=== PATIENT | female | born 1975 | race Caucasian/White ===

== ENCOUNTER → 2017-09-13 10:22 | Outpatient (CLI) | payer OTHER, SELFPAY ==
--- NOTE | 2017-09-13 10:27 | RAD_ITS ---
STUDY: X-RAY - RIGHT FOOT CLINICAL: Female, 41 years old. Brain TECHNIQUE: 3 view(s) of the foot. COMPARISON: None. FINDINGS: There is avulsion at the anterolateral aspect of the calcaneus at the origin of the extensor digitorum brevis musculature. 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 Normal visualized subtalar, talonavicular, calcaneocuboid, tarsal and tarsometatarsal articulations. Normal metatarsi. Normal metatarsophalangeal joint of the great toe. Normal tibial and fibular sesamoid bones. Normal interphalangeal joint of the great toe. Normal phalanges of the great toe. Normal second through fifth metatarsophalangeal joints. Normal interphalangeal joints and phalanges of the lesser toes. The soft tissue structures are unremarkable. RAD/Foot min 3 Views IMPRESSION: Avulsion at the anterolateral aspect of the calcaneus Accessory navicular Electronically Signed: Kwadwo Blake MD at 10:16 EDT Tel , Service support ,
--- NOTE | 2017-09-13 10:28 | RAD_ITS ---
STUDY: X-RAY - RIGHT ANKLE REASON FOR EXAM: Female, 41 years old. Brain TECHNIQUE: 3 view(s) of the ankle. COMPARISON: None. FINDINGS: Normal visualized distal tibia and fibula. Normal medial and lateral malleoli. Normal tibiotalar articulation and ankle mortise. Calcaneal spurring. The visualized subtalar, talonavicular, calcaneocuboid and tarsal articulations are normal. The soft tissue structures are unremarkable. RAD/Ankle min 3 Views IMPRESSION: No fracture Electronically Signed: Kwadwo Blake MD at 10:15 EDT Tel , Service support ,
== END ==
PROVIDERS: Family Provider Internal Medicine; PCP Internal Medicine; Visit Provider Physician Assistant
DX: S93.491A Sprain of other ligament of right ankle, initial encounter (principal); X58.XXXA Exposure to other specified factors, initial encounter
CPT/HCPCS: 73610; 73630

== ENCOUNTER 2017-10-09 10:30 | Outpatient (RCR) | payer OTHER, SELFPAY ==
--- NOTE | 2017-09-13 10:32 | HP.PTEVAL ---
Patient's Visit Information VINCENT MCGEE is a 41 year old F referred to Physical Therapy by Indra DOLL with a diagnosis of Ankle Sprain. Date of Evaluation: 09/13/17 Physical Therapist: Mindi Mcpherson - Visit Plan Frequency: 2-3x /Week Duration: 4 Weeks Plan: Patient to see MD on Saturday- if wbat then progress 2-3x a week for 4 weeks - Subjective Subjective: Tripped and fell off a step in the garage and the right ankle rolled to the inside. X-rayed 2 weeks ago and will have another one today. NWB for 2 weeks today and partial WB as of today. She did not want to use the crutches because it was hurting her other foot. worst: 01/31 Agg: being on it, movement. Best: 08/31 Eases: rest, ice, elevation. Sleep: wakes her up- moves all over. Pain is located the medial side of the ankle, top of the foot and down the into the heel. Burning, achy and sharp when she moves it wrong. No N/T in the foot. 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 PMHx: neck surgery, , HTn meds: cartisone - Objective Posture: FH, RS. Gait: antalgic- patient was to be NWB but ambulated into the clinic FWB with decreased stance on the right LE. Girth: Malleolus: 28 cm Figure 8: 55cm, Mets: 22.5cm. ROM: DF: neutral, PF: 30 degrees, Inv: 15 degrees, Ever: 10 degrees with bret. Observation: mild brusing. Palpation: tender along medial and lateral malleolus and along foot. x - Goals Goal 1:: Patient will be I with HEP and progression Goal Time Frame: 4-6 Weeks Goal 2:: Patient will demo full AROM of the ankle Goal Time Frame: 4-6 Weeks Goal 3:: Patient will ambulate >300 feet with a normalized gait pattern and LRD as per allowed WB by md Goal Time Frame: 4-6 Weeks Goal 4:: patient will SLS for 15 sec without LOB Goal Time Frame: 4-6 Weeks - Rehabilitation Potential Physical Therapy Diagnosis: Patient presents with hypomobility- she has decreased ROM, strength and muscular endurance s/p ankle sprain decreasing ability to perform ADL's. Rehabilitation Potential: Fair - Anticipated Interventions Patient/Client Instruction: Educate patient on: Benefits of Fitness Program For the Purpose of:: To improve performance and independence with ADL's Therapeutic Exercise to Include: Strength training, Endurance training, Balance training, Agility training, Body mechanics, Postural training, Flexibilty training, Gait and locomotor training, Neuromotor development, Passive ROM, Active ROM For the Purpose of:: To improve muscle performance and motor function TENS: Yes Cryotherapy (ice pack, ice massage): Yes Thermo therapy (hot pack): Yes Ultrasound (thermal/non thermal): Yes For the Purpose of:: To decrease pain Thank you for the opportunity to evaluate your patient. For Medicare and Medicare HMO plans, please review the plan of care and approve it. It will need to be FAXED BACK to us at [phone] for Medicare purposes. Please let me know if there are questions or concerns regarding this plan of care. Physician Signature: Date:
--- NOTE | 2017-11-11 14:13 | HP.PT.NRP ---
HP - Discharge Summary (1) - Patient Information VINCENT MGCEE was seen in my office for initial evaluation on 09/13/17. The following Plan of Care was established for this patient: Initial Frequency: 2-3x /Week Initial Duration: 4 Weeks - Anticipated Interventions Patient/Client Instruction: Educate patient on: Benefits of Fitness Program For the Purpose of:: To improve performance and independence with ADL's Therapeutic Exercise to Include: Strength training, Endurance training, Balance training, Agility training, Body mechanics, Postural training, Flexibilty training, Gait and locomotor training, Neuromotor development, Passive ROM, Active ROM For the Purpose of:: To improve muscle performance and motor function TENS: Yes Cryotherapy (ice pack, ice massage): Yes Thermo therapy (hot pack): Yes Ultrasound (thermal/non thermal): Yes For the Purpose of:: To decrease pain This patient was last seen in our office . Pertinent comments regarding their Physical therapy will appear below: Patient has not returned for 30 days and is appropriate for discharge. Return to MD for further evaluation as needed. At this point I will be discontinuing this patient from physical therapy. I would be happy to see this patient again in the future if found appropriate by the physician. Thank you! Mindi Mcpherson
== END 2017-10-09 19:00 | disposition home or self-care (01) ==
LOC: PT 10:30
PROVIDERS: Family Provider Internal Medicine; PCP Internal Medicine; Visit Provider Physician Assistant
DX: S93.491D Sprain of other ligament of right ankle, subsequent encounter (principal)
CPT/HCPCS: 97014; 97110; 97161; G0283

== ENCOUNTER → 2018-04-16 09:20 | Outpatient (CLI) | payer OTHER, SELFPAY ==
--- NOTE | 2018-04-16 09:22 | RAD_ITS ---
STUDY: X-RAY - RIGHT KNEE REASON FOR EXAM: Female, 42 years old. Pain following a recent fall. TECHNIQUE: 3 view(s) of the knee. COMPARISON: None. FINDINGS: Normal visualized distal femur. Normal visualized proximal tibia and fibula. Normal proximal tibiofibular articulation. Normal medial femorotibial compartment. Normal lateral femorotibial compartment. Normal patellofemoral articulation. There is a 2.2 cm x 1.5 cm small sesamoid bone overlying the posterior lateral femoral condyle. This is suggestive of flabella. The sesamoid bone is usually embedded within the lateral head of the gastrocnemius muscle. RAD/Knee 3 Views IMPRESSION: No acute abnormality is seen. Flabella is seen overlying the posterolateral aspect of the distal lateral femoral condyle. Electronically Signed: Andreas Spicer MD at 10:04 EDT Tel [phone], Service support ,
== END ==
LOC: LAB 09:22 → MTRAD 09:22
PROVIDERS: Family Provider Internal Medicine; PCP Internal Medicine; Referring Provider Physician Assistant; Visit Provider Physician Assistant
DX: M25.561 Pain in right knee (principal)
CPT/HCPCS: 73562

== ENCOUNTER → 2018-04-22 16:13 | Outpatient (CLI) | payer OTHER, SELFPAY ==
--- NOTE | 2018-04-22 16:18 | MRI_ITS ---
STUDY: MRI RIGHT KNEE REASON FOR EXAM: Right knee pain status post injury almost 2 weeks ago. TECHNIQUE: Standardized fat and water weighted pulse sequences were obtained in all 3 orthogonal planes. COMPARISON: Radiographs 04/16/2018. FINDINGS: There a small tear of the root ligament of the posterior horn of the medial meniscus (T2 coronal image 12). There is mild peripheral subluxation of the medial meniscus. Normal hyaline cartilage of the medial femorotibial compartment. Normal medial femoral condyle and tibial plateau. Normal medial collateral ligamentous complex (MCL). Normal distal semimembranosus, gracilis and semitendinosus tendons. Normal lateral meniscus. Normal hyaline cartilage of the lateral femorotibial compartment. Normal lateral femoral condyle and tibial plateau. Normal proximal tibiofibular articulation. Normal lateral collateral (fibular) ligament. Normal popliteus tendon. Normal biceps femoris tendon. Normal anterior cruciate ligament (ACL). Normal posterior cruciate ligament (PCL). Normal congruent patellofemoral articulation. Normal hyaline cartilage of the patellofemoral compartment. Normal medial and lateral patellar retinaculum. Normal visualized quadriceps tendon. Normal patellar tendon. Normal Hoffa's fat pad. There is a small joint effusion. There is a small popliteal cyst with extravasation of fluid (T2 sagittal images 6-9). There is cystic change in the proximal tibia extending anteriorly from the posterior cruciate ligament insertion site (T2 sagittal images 12-15). MRI/Lower Ext Joint Only (Routine) IMPRESSION: Small tear of the root ligament of the posterior horn of the medial meniscus. Small joint effusion. Small popliteal cyst with extravasation of fluid. Electronically Signed: Kendell La MD at 10:04 EDT Tel , Service support ,
== END ==
PROVIDERS: Family Provider Internal Medicine; PCP Internal Medicine; Referring Provider Physician Assistant; Visit Provider Physician Assistant
DX: M25.561 Pain in right knee (principal)
CPT/HCPCS: 73721

== ENCOUNTER 2018-06-02 07:56 | Day surgery (SDC) | payer OTHER, SELFPAY ==
[2018-04-16 09:22] VITALS: BMI 38.3
[2018-06-02 08:23] VITALS: BP 150/90; PULSE 71; RESP 16; TEMP 36.9; O2SAT 98; BMI 38.5
[2018-06-02 08:23] LABS: Internal QC Validated? YES +Cl - CLEAR BKGD
[2018-06-02 08:26] LABS: Pregnancy, Urine Negative Negative
[2018-06-02] MEDS: Bupiv/Epi 0.5% Mpf 30 ML Vial (09:52)
--- NOTE | 2018-06-02 09:59 | PCM.IMDPSTOP ---
Immediate Post-Op Note Date of Procedure: 06/02/18 Primary Surgeon/Physician: Robin Cheema aircraft maintenance manager: none Pre-Operative Diagnosis: Internal derangement right knee Post-Operative Diagnosis: Grade 2 chondromalacia MFC, Anterior horn lateral meniscus tear Surgery/Procedure Performed:: D & O Arthroscopy Description of Surgical Findings:: see op note Estimated Blood Loss: minimal Specimen's removed: none Type of Anesthesia:: General ASA Class: ASA3 Severe Disease - Admit VTE Documentation VTE Present on Admission: No VTE Mechan Device Prophylaxis: SCD's VTE Pharm Prophylaxis ordered?: No Reason prophylaxis not ordered:: Treatment Not Indicated
--- NOTE | 2018-06-02 10:02 | OP.PN_ITS ---
Immediate Post-Op Note Date of Procedure: 06/02/18 Primary Surgeon/Physician: Robin Cheema plastic shaper: none Pre-Operative Diagnosis: Internal derangement right knee Post-Operative Diagnosis: Grade 2 chondromalacia MFC, Anterior horn lateral meniscus tear Surgery/Procedure Performed:: D & O Arthroscopy Description of Surgical Findings:: see op note Estimated Blood Loss: minimal Specimen's removed: none Type of Anesthesia:: General ASA Class: ASA3 Severe Disease - Admit VTE Documentation VTE Present on Admission: No VTE Mechan Device Prophylaxis: SCD's VTE Pharm Prophylaxis ordered?: No Reason prophylaxis not ordered:: Treatment Not Indicated
--- NOTE | 2018-06-02 10:11 | PCM.OP.BLANK ---
Operative Report Date of Procedure: 06/02/18 Primary Surgeon/Physician: Robin Cheema biomedical engineering internship: none biomedical engineering internship: Pre-Operative Diagnosis: Internal derangement right knee Post-Operative Diagnosis: Anterior horn lateral meniscus tear, grade 2/3 chondromalacia medial femoral condyle right knee Surgery/Procedure Performed: Arthroscopic partial lateral meniscectomy and chondroplasty right knee Estimated Blood Loss: minimal Specimen's Removed: none Type of Anesthesia: general ASA Class: 3 Indications: [ ] Patient has failed conservative measures and at this point has elected to undergo the above procedure. Procedure Description: The patient was greeted in the preoperative area. The [right knee ] knee was marked with surgical marker. Preoperative antibiotics were administered. The patient was then taken to the operating suite and placed in a supine position on operating room table. After adequate anesthesia was obtained and airway was secured a well-padded tourniquet was placed on patient's affected extremity. Leg was then prepped and draped in usual sterile fashion. Surgical timeout was performed and confirmed with all present and surgery was commenced. Preoperative antibiotics were administered and the well leg was well padded. Standard anteromedial anterolateral portals were made and a 30? arthroscope was then inserted into the knee. [The patellofemoral joint was in good condition without arthrosis. 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 A probe was used to probe the medial meniscus and it was found to be intact ]. The ACL and PCL were probed and intact. There was an anterior horn tear of the lateral meniscus which was resected back to a firm and stable rim with the arthroscopy shaver. The surface cartilage in the lateral compartment showed no damage. A shaver was used to perform a chondroplasty on the MFC, shaping and smoothing the articular surface cartilage such that no delamination of cartilage was noted on the periphery of the lesion. At this point all instruments were removed. Arthroscopic portals were closed in a standard fashion. 30 cc of 0.5% Marcaine was then injected into the knee. Well-padded nonadherent dressing was applied and secured with an Elvis wrap. Tourniquet was deflated and patient was taken to the recovery room in stable condition.
[2018-06-02 10:13] VITALS: BP 134/81; BP 150/90; PULSE 86; RESP 16; TEMP 37; O2SAT 96
[2018-06-02 10:15] VITALS: BP 134/79; BP 150/90; PULSE 93; RESP 16; O2SAT 96
[2018-06-02] MEDS: Ketorolac 30 MG/ML Syringe IV (10:24)
[2018-06-02 10:30] VITALS: BP 118/79; BP 150/90; PULSE 76; RESP 16; O2SAT 93
[2018-06-02 10:41] VITALS: BP 121/79; BP 150/90; PULSE 76; RESP 16; TEMP 36.6; O2SAT 92
[2018-06-02] MEDS: HYDROcodone Bitartrate/Apap 5/325 Tablet PO (11:11)
[2018-06-02 12:41] VITALS: BP 138/83; BP 150/90; PULSE 76; RESP 16; TEMP 36.3; O2SAT 96
== END 2018-06-02 12:51 | disposition home or self-care (01) ==
LOC: SDC 07:57 → AC 07:58
PROVIDERS: Anesthesiology; Family Provider Internal Medicine; PCP Internal Medicine; Referring Provider Orthopaedic Surgery; Visit Provider Orthopaedic Surgery
PROC: (CPT 29870; principal; 2018-06-02 08:50)
DX: S83.281A Other tear of lateral meniscus, current injury, right knee, initial encounter (principal); W19.XXXA Unspecified fall, initial encounter; I10 Essential (primary) hypertension; Z79.899 Other long term (current) drug therapy
CPT/HCPCS: 01400; 29881; 81025; J7120; A4216

== ENCOUNTER → 2018-06-27 11:12 | Outpatient (CLI) | payer OTHER, SELFPAY ==
[2018-06-02 08:23] VITALS: BMI 38.5
--- NOTE | 2018-06-27 11:19 | VDLE_ITS ---
Reason For Study: PAIN RIGHT GSV is normal. CFV is compressible, spontaneous, phasic, competent and demonstrates normal augmentation. FV is compressible, spontaneous, phasic, competent and demonstrates normal augmentation. POP V is compressible, spontaneous, phasic, competent and demonstrates normal augmentation. T/P Trunk is compressible. PTV is compressible. RT PerV is compressible. Procedure Exam performed in department. A preliminary report was called and/or faxed to INDRA LIEJA. Interpretation Summary Deep veins of the right lower extremity are patent and compressible segmentally. There is no evidence of right lower extremity deep vein thrombosis. Valvular competence appears intact within the proximal deep venous system on the right . The right greater saphenous vein appears patent and compressible segmentally. Ordering Physician: Indra Coates Referring Physician: GAMAL VAZQUEZ Performed By: Deisy Lepe, YONY, RVT
== END ==
PROVIDERS: Family Provider Internal Medicine; PCP Internal Medicine; Referring Provider Physician Assistant; Visit Provider Physician Assistant
DX: M79.604 Pain in right leg (principal)
CPT/HCPCS: 93971

== ENCOUNTER 2018-07-21 11:00 | Outpatient (RCR) | payer OTHER, SELFPAY ==
--- NOTE | 2018-06-09 10:20 | HP.PTEVAL_ITS ---
Patient's Visit Information VINCENT MCGEE is a 42 year old F referred to Physical Therapy by Indra Coates with a diagnosis of DSA of the right knee. Date of Evaluation: 06/09/18 Physical Therapist: Mindi Mcpherson - Visit Plan Frequency: 3x /Week Duration: 4 Weeks Plan: DSA of right knee 06/02/18- Focus on ROM and functional mobility - Subjective Findings: 06/02/18 DSA of the right knee by Dr. Cheema. The knee is pretty sore. Fell at end of March- tripped over blinds and landed and knew it was bad. Went home after surgery- two story home with 3 stairs to enter. HR on both sets of stairs. No problems getting in/out just has to be careful this is the first time she has really been out. 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 RTW date Jun 30, 2017. Pain is now located along the medial joint line, posterior calf and in the quad. Describes the pain as dull and achy with tenderness to touch- can be sharp depending on how she moves. Worst: 10/10 Agg: movement or bending wrong. Eases: sitting and ice. Best: 5/10. No radiating pain- no N/T in the toes. Sleep: wakes her up- side sleeper mostly- easiest to get comfortable. No exercise prior to surgery. PMHx/Meds: no changes since surgery. 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 - Objective Posture: FH, RS- can correct with verbal cues but does not maintain. Gait: antalgic- decreased stance on the right LE with poor heel/toe pattern secondary to decreased ROM. Stairs: asc/desc 8 non recip with 2 HR- given VC's patient can asc/desc 8 recip but reports pain and utilizes UE A for control. HR/TR: able but reports pain and requires UE A from wall for stablization. SLS: unable but can weight shift- reports discomfort and not trusting the right LE to hold her body weight. Observation: incisions healing well no s/s of infection- no sutures present. Palpation: tender along posterior knee, medial joint line. Sensation: WNL. Reflexes: not tested secondary to surgical location. ROM: 20- 90 degrees---10-110 degrees after bolster extension stretch and heel slides. Strength: Ankle: 5/5, Knee: 4/5 with discomfort, Hip: 4-/5 throughout- SLR- moderate lag. Flex: Gastroc: severe, Hamstring: severe - Goals Goal 1:: Patient will be I with HEP and progression Goal Time Frame: 4-6 Weeks Goal 2:: Patient will demo 0-120 degrees of ROM of the right knee Goal Time Frame: 4-6 Weeks Goal 3:: Patient will asc/desc 8 stairs recip with 1 HR and good pattern Goal Time Frame: 4-6 Weeks Goal 4:: Patient will ambulate >300 feet with a normalized gait pattern Goal Time Frame: 4-6 Weeks - Rehabilitation Potential Physical Therapy Diagnosis: Patient presents s/p DSA of right knee- she has decreased ROM, strength and muscular endurance leading to abnormal gait pattern and decreased ability to perform painfree ADL's Rehabilitation Potential: Good - Anticipated Interventions Patient/Client Instruction: Educate patient on: Benefits of Fitness Program Therapeutic Exercise to Include: Strength training, Endurance training, Balance training, Coordination, Agility training, Body mechanics, Postural training, Flexibilty training, Gait and locomotor training, Passive ROM, Active ROM, Dynamic Lumbar Stabilization For the Purpose of:: To improve muscle performance and motor function TENS: Yes Cryotherapy (ice pack, ice massage): Yes Thermo therapy (hot pack): Yes Ultrasound (thermal/non thermal): Yes For the Purpose of:: To decrease pain Thank you for the opportunity to evaluate your patient. For Medicare and Medicare HMO plans, please review the plan of care and approve it. It will need to be FAXED BACK to us at [phone] for Medicare purposes. For Medicare only, by signing this I certify the plan of care. Please let me know if there are questions or concerns regarding this plan of care. Physician Signature: Date:
--- NOTE | 2018-07-02 10:37 | HP.PTREVAL ---
Indra Coates, It has been my pleasure to treat VINCENT MCGEE over the last 9 visits for DSA of the right knee. Please see the progress note below for an update on the physical therapy plan of care! Subjective: Patient reports that after last time she was the first time she did not limp out. Did them again yesterday and is a little sore. She did not take Tylenol last night. The painful pinpoint is gone and no more cramping/malina horse. Goes back to [facility] 07/15/17- could be release for work at that point but may get another 2 weeks. Still challenged with some ADL's and stairs. Objective/Function: Posture: Improved- can correct but only maintains for 2 minutes. Gait: Improved- antalgic- decreased stance on the right LE with poor heel/toe pattern secondary to decreased ROM. Stairs: asc/desc 8 recip with 1 HR- uses UE A for propulsion but improving. HR/TR: able without pain. SLS: 6-8 seconds then LOB. Palpation: tender along posterior knee, medial joint line. Sensation: WNL. ROM: 5-100 degrees Strength: Ankle: 5/5, Knee: 4+/5, Hip: 4/5 throughoutFlex: Gastroc: moderate, Hamstring: moderate Plan Plan: Cont with POC 2-3x a week for an additional 4 weeks Goals Goal 1:: Patient will be I with HEP and progression Goal Time Frame: 4-6 Weeks Goal Progress: Progressing Goal 2:: Patient will demo 0-120 degrees of ROM of the right knee Goal Time Frame: 4-6 Weeks Goal Progress: Progressing Goal 3:: Patient will asc/desc 8 stairs recip with 1 HR and good pattern Goal Time Frame: 4-6 Weeks Goal Progress: Progressing Goal 4:: Patient will ambulate >300 feet with a normalized gait pattern Goal Time Frame: 4-6 Weeks Goal Progress: Progressing Anticipated Interventions Patient/Client Instruction: Educate patient on: Benefits of Fitness Program Therapeutic Exercise to Include: Strength training, Endurance training, Balance training, Coordination, Agility training, Body mechanics, Postural training, Flexibilty training, Gait and locomotor training, Passive ROM, Active ROM, Dynamic Lumbar Stabilization For the Purpose of:: To improve muscle performance and motor function TENS: Yes Cryotherapy (ice pack, ice massage): Yes Thermo therapy (hot pack): Yes Ultrasound (thermal/non thermal): Yes For the Purpose of:: To decrease pain Please do not hesitate to contact me at [phone] by phone or if you have questions or concerns regarding this new plan of care! Sincerely, HEAVENLY FalkT
--- OUTSIDE RECORDS SUMMARY | 2018-09-10 21:43 | XMS RPT_ITS ---
:1975 Author Organization [place] Support Name Relationship Address Phone JAY YBARRA Unavailable [address] + [place] [address] WC Unavailable [address] + [place] [address] ASYA BOSS Unavailable [address] + [place] [address] JAY YBARRA Unavailable [address] + [place] [address] WC Unavailable [address] + [place] [address] ASYA BOSS Unavailable [address] + [place] [address] JAY YBARRA Unavailable [address] + [place] [address] [facility] Unavailable [address] + [place] [address] ASYA BOSS Unavailable [address] + [place] [address] JAY YBARRA Unavailable [address] + [place] [address] [facility] Unavailable [address] + [place] [address] ASYA BOSS Unavailable [address] + [place] [address] JAY YBARRA Unavailable [address] + [place] [address] [facility] Unavailable [address] + [place] [address] GERA, ASYA Unavailable [address] + [place] [address] JAY YBARRA Unavailable [address] + [place] [address] [facility] Unavailable [address] + [place] [address] GERA, ASYA Unavailable [address] + [place] [address] JAY YBARRA Unavailable [address] + [place] [address] [facility] Unavailable [address] + [place] [address] GERA, ASYA Unavailable [address] + [place] [address] JAY YBARRA Unavailable [address] + [place] [address] [facility] Unavailable [address] + [place] [address] GERA, ASYA Unavailable [address] + [place] [address] JAY YBARRA Unavailable [address] + [place] [address] [facility] Unavailable [address] + [place] [address] GERA, ASYA Unavailable [address] + [place] [address] JAY YBARRA Unavailable [address] + [place] [address] [facility] Unavailable [address] + [place] [address] GERA, ASYA Unavailable [address] + [place] [address] Care Team Providers Name Role Phone GAMAL ALMENDAREZ Attending Unavailable ASYA VALDEZ ([facility]) Referring Unavailable EM STOVER ([facility]) Attending Unavailable GAMAL ALMENDAREZ Attending Unavailable Kenji Coates Referring Unavailable Gamal Almendarez Primary Care Unavailable CELINA BENNETT Attending Unavailable Robin Cheema Attending Unavailable Robin Cheema Referring Unavailable Talampas, Gamal Primary Care Unavailable Kwadwo Fair Attending Unavailable Kwadwo Fair Referring Unavailable Talampas, Gamal Primary Care Unavailable Kwadwo Fair Attending Unavailable DaynalesKwadwo Referring Unavailable Talampas, Gamal Primary Care Unavailable DaynalesKwadwo Attending Unavailable Talampas, Gamal Referring Unavailable ASSESSMENT, HEALTH RISK Attending Unavailable ASSESSMENT, HEALTH RISK Referring Unavailable Talampas, Gamal Primary Care Unavailable Jaxon, Kenji Attending Unavailable Talampas, Gamal Primary Care Unavailable Janashley, Kenji Attending Unavailable Janas, Kenji Referring Unavailable Talampas, Gamal Primary Care Unavailable Helena Marie Attending Unavailable Talampas, Gamal Referring Unavailable Janas, Kenji Attending Unavailable Janas, Kenji Referring Unavailable Talampas, Gamal Primary Care Unavailable PROBLEMS PROBLEMS DATE TYPE CONDITION / CODE ATTENDING STATUS SOURCE 04/16/2018 Unknown M25.561 - Pain in Kwadwo Fair Active [facility] right knee / Community M25.561(ICD-10) Hospital Repository 11/14/2017 Unknown S93.491D - Sprain Kenji Coates Active [facility] of other ligament Community of right ankle, Hospital subsequent Repository encounter / S93.491D(ICD-10) 08/30/2017 Active Unspecified NA Active [facility] injury of right [place] ankle, initial Repository encounter / S99.911A(ICD-10) 08/30/2017 Active Unspecified NA Active [facility] injury of right [place] foot, initial Repository encounter / S99.921A(ICD-10) PROCEDURES PROCEDURES No Procedure Records FoundRESULTS RESULTS RE-EVALUATION - PT (1) Observed: 07/02/2018 Status: F Source: [place] 10:38 AM [facility] REPOSITORY [facility] Physical Therapy [address] [place] [address] / REEVALUATION / MEDICARE RECERTIFICATION PHYSICAL THERAPY MR#: [id number] Acct: [id number] Name: ANAYA YBARRA Rep #: [id number] : 1975 42 From: Mindi BURDICKT Referring : Status: REG RCR Insurance: [facility] [employer] SELF PAY INSURANCE Kenji Coates, It has been my pleasure to treat ANAYA YBARRA over the last 9 visits for DSA of the right knee. Please see the progress note below for an update on the physical therapy plan of care! Subjective: Patient reports that after last time she was the first time she did not limp out. Did them again yesterday and is a little sore. She did not take Tylenol last night. The painful pinpoint is gone and no more cramping/malina horse. Goes back to [place] 07/15/17- could be release for work at that point but may get another 2 weeks. Still challenged with some ADL's and stairs. Objective/Function: Posture: Improved- can correct but only maintains for 2 minutes. Gait: Improved- antalgic- decreased stance on the right LE with poor heel/toe pattern secondary to decreased ROM. Stairs: asc/desc 8 recip with 1 HR- uses UE A for propulsion but improving. HR/TR: able without pain. SLS: 6-8 seconds then LOB. Palpation: tender along posterior knee, medial joint line. Sensation: WNL. ROM: 5-100 degrees Strength: Ankle: 5/5, Knee: 4+/5, Hip: 4/5 throughoutFlex: Gastroc: moderate, Hamstring: moderate Plan Plan: Cont with POC 2-3x a week for an additional 4 weeks Goals Goal 1:: Patient will be I with HEP and progression Goal Time Frame: 4-6 Weeks Goal Progress: Progressing Goal 2:: Patient will demo 0-120 degrees of ROM of the right knee Goal Time Frame: 4-6 Weeks Goal Progress: Progressing Goal 3:: Patient will asc/desc 8 stairs recip with 1 HR and good pattern Goal Time Frame: 4-6 Weeks Goal Progress: Progressing Goal 4:: Patient will ambulate >300 feet with a normalized gait pattern Goal Time Frame: 4-6 Weeks Goal Progress: Progressing Anticipated Interventions Patient/Client Instruction: Educate patient on: Benefits of Fitness Program Therapeutic Exercise to Include: Strength training, Endurance training, Balance training, Coordination, Agility training, Body mechanics, Postural training, Flexibilty training, Gait and locomotor training, Passive ROM, Active ROM, Dynamic Lumbar Stabilization For the Purpose of:: To improve muscle performance and motor function TENS: Yes Cryotherapy (ice pack, ice massage): Yes Thermo therapy (hot pack): Yes Ultrasound (thermal/non thermal): Yes For the Purpose of:: To decrease pain Please do not hesitate to contact me at [phone] by phone or if you have questions or concerns regarding this new plan of care! Sincerely, Mindi Mcpherson, DPT <Electronically signed by Midni Mcpherson DPT> 07/02/18 1038 CC: Gamal Almendarez MD; Kenji PALACIOS ELR Signed For Medicare only, by signing this I certify the plan of care. Physicians Signature Date VENOUS DUPLEX LOWER Observed: 06/27/2018 Status: F Source: [place] EXTREMITY 7:23 PM [facility] REPOSITORY [facility] Cardiovascular Services [address] [place] [address] Venous Duplex US, Unilateral 06/27/18 1123 MR#: [id number] Acct: [id number] Name: ANAYA YBARRA Rep #: [id number] : 1975 42 From: Gamal Sanchez MD Attending Dr: Kenji Wellington Status: REG CLI Ordering Dr: Kenji Coates PA-C Date: 06/27/18 Location: [facility] Sex: F C Admitted: Reason For Study: PAIN RIGHT GSV is normal. CFV is compressible, spontaneous, phasic, competent and demonstrates normal augmentation. FV is compressible, spontaneous, phasic, competent and demonstrates normal augmentation. POP V is compressible, spontaneous, phasic, competent and demonstrates normal augmentation. T/P Trunk is compressible. PTV is compressible. RT PerV is compressible. Procedure Exam performed in department. A preliminary report was called and/or faxed to KENJI LEIJA. Interpretation Summary Deep veins of the right lower extremity are patent and compressible segmentally. There is no evidence of right lower extremity deep vein thrombosis. Valvular competence appears intact within the proximal deep venous system on the right . The right greater saphenous vein appears patent and compressible segmentally. Ordering Physician: Kenji Coates Referring Physician: GAMAL ALMENDAREZ Performed By: Deisy Lepe, RDCS, RVT 06/27/181921 Date Gamal Sanchez MD CC: Gamal Almendarez MD; Kenji PALACIOS Date Dictated: 06/27/181122 Date Transcribed: 06/27/181922 Administrative Services Coordinator: Signed CNPTOUTREACH Observed: 06/23/2018 Status: COMPLETED Source: [place] 12:00 AM [facility] REPOSITORY Patient Outreach ([facility]) ANAYA YBARRA ([id number]) 1975 F Date Time Provider Department 06/23/18 GAMAL ALMENDAREZ [facility] During your visit today, we recorded the following information about you: Allergies As of Date: 06/23/2018 Noted Allergy Reaction bandaids [Other] 12/18/2005 9 - Itching DEMERAL (MEPERIDINE) 03/19/2012 14 - Other: See Comments Comments: Put patient into v-tach KEFLEX (CEPHALEXIN) 03/19/2012 2 - Rash LATEX 12/18/2005 9 - Itching LISINOPRIL 10/16/2016 5 - Intolerance Comments: Cough Date Reviewed: 12/28/2017 Reviewed by: Siobhan Jay LPN - Fully Assessed Visit Diagnosis:Medication management [Z79.899] Order(s):BASIC METABOLIC PNL [SQBMP] Order #: [id number] FUTURE LIPID PANEL BASIC [SQLIPB] Order #: [id number] FUTURE HGB A1C [RZUVY1W] Order #: [id number] FUTURE Prescriptions as of 06/23/2018 Sig: DICYCLOMINE 10 MG CAPSULE Take 1 capsule by mouth befor* DILTIAZEM SR 240 MG 24 HR CAP Take 1 capsule by mouth once * BUPROPION XL 150 MG TAB Take 1 tablet by mouth once d* PAROXETINE 40 MG TABLET Take 1 tablet by mouth once d* LOSARTAN 50 MG TABLET Take 0.5 tablets by mouth onc* SUMATRIPTAN 50 MG TABLET TAKE 1 TABLET BY MOUTH. OCTOBER * Problem List As Of Date 06/23/2018 Noted Resolved IRRITABLE COLON [K58.9] INVALID FOR* More... Screening-pulmonary TB [Z11.1] INVALID FOR* More... Routine medical exam [Z00.00] INVALID FOR* More... VT (ventricular tachycardia) [I47.2] INVALID FOR* More... Hypertension [I10] INVALID FOR* Diverticulosis [K57.90] INVALID FOR* More... Umbilical hernia [K42.9] INVALID FOR* Obesity [E66.9] Migraine headache with aura [G43.109] INVALID FOR* More... Spinal stenosis in cervical region [M48.02] INVALID FOR* Irritable bowel syndrome with diarrhea [K58.0] INVALID FOR* Bulging of cervical intervertebral disc without* 09/03/2016 DDD (degenerative disc disease), cervical [M50.* Foraminal stenosis of cervical region [M99.81] INVALID FOR* More... Encounter Status:Closed by ZACK, PRODUSER on 07/08/18 INITAL EVALUATION (1) Observed: 06/09/2018 Status: F Source: [place] - PT 10:20 AM [facility] REPOSITORY [facility] Physical Therapy [facility] [address] [place] [address]. [address] [place] [address] Fax REHABILITATION SERVICES INITIAL EVALUATION MR#: [id number] Acct: [id number] Name: ANAYA YBARRA Rep #: [id number] : 1975 42 From: Mindi Mcpherson DPT Referring DrHarpal: Status: REG RCR Insurance: [facility] SELF PAY INSURANCE Patient's Visit Information ANAYA YBARRA is a 42 year old F referred to Physical Therapy by Kenji Coates with a diagnosis of DSA of the right knee. Date of Evaluation: 06/09/18 Physical Therapist: Mindi Mcpherson - Visit Plan Frequency: 3x /Week Duration: 4 Weeks Plan: DSA of right knee 06/02/18- Focus on ROM and functional mobility - Subjective Findings: 06/02/18 DSA of the right knee by Dr. Cheema. The knee is pretty sore. Fell at end of March- tripped over blinds and landed and knew it was bad. Went home after surgery- two story home with 3 stairs to enter. HR on both sets of stairs. No problems getting in/out just has to be careful this is the first time she has really been out. 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 RTW date Jun 30, 2017. Pain is now located along the medial joint line, posterior calf and in the quad. Describes the pain as dull and achy with tenderness to touch- can be sharp depending on how she moves. Worst: 10/10 Agg: movement or bending wrong. Eases: sitting and ice. Best: 5/10. No radiating pain- no N/T in the toes. Sleep: wakes her up- side sleeper mostly- easiest to get comfortable. No exercise prior to surgery. PMHx/Meds: no changes since surgery. 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 - Objective Posture: FH, RS- can correct with verbal cues but does not maintain. Gait: antalgic- decreased stance on the right LE with poor heel/toe pattern secondary to decreased ROM. Stairs: asc/desc 8 non recip with 2 HR- given VC's patient can asc/desc 8 recip but reports pain and utilizes UE A for control. HR/TR: able but reports pain and requires UE A from wall for stablization. SLS: unable but can weight shift- reports discomfort and not trusting the right LE to hold her body weight. Observation: incisions healing well no s/s of infection- no sutures present. Palpation: tender along posterior knee, medial joint line. Sensation: WNL. Reflexes: not tested secondary to surgical location. ROM: 20-90 degrees---10-110 degrees after bolster extension stretch and heel slides. Strength: Ankle: 5/5, Knee: 4/5 with discomfort, Hip: 4-/5 throughout- SLR- moderate lag. Flex: Gastroc: severe, Hamstring: severe - Goals Goal 1:: Patient will be I with HEP and progression Goal Time Frame: 4-6 Weeks Goal 2:: Patient will demo 0-120 degrees of ROM of the right knee Goal Time Frame: 4-6 Weeks Goal 3:: Patient will asc/desc 8 stairs recip with 1 HR and good pattern Goal Time Frame: 4-6 Weeks Goal 4:: Patient will ambulate >300 feet with a normalized gait pattern Goal Time Frame: 4-6 Weeks - Rehabilitation Potential Physical Therapy Diagnosis: Patient presents s/p DSA of right knee- she has decreased ROM, strength and muscular endurance leading to abnormal gait pattern and decreased ability to perform painfree ADL's Rehabilitation Potential: Good - Anticipated Interventions Patient/Client Instruction: Educate patient on: Benefits of Fitness Program Therapeutic Exercise to Include: Strength training, Endurance training, Balance training, Coordination, Agility training, Body mechanics, Postural training, Flexibilty training, Gait and locomotor training, Passive ROM, Active ROM, Dynamic Lumbar Stabilization For the Purpose of:: To improve muscle performance and motor function TENS: Yes Cryotherapy (ice pack, ice massage): Yes Thermo therapy (hot pack): Yes Ultrasound (thermal/non thermal): Yes For the Purpose of:: To decrease pain Thank you for the opportunity to evaluate your patient. For Medicare and Medicare HMO plans, please review the plan of care and approve it. It will need to be FAXED BACK to us at [phone] for Medicare purposes. For Medicare only, by signing this I certify the plan of care. Please let me know if there are questions or concerns regarding this plan of care. Physician Signature: Date: <Electronically signed by Mindi Mcpherson DPT> 06/09/18 1020 CC: Gamal Almendarez MD; Kenji PALACIOS ELR Signed OPERATIVE REPORT Observed: 06/02/2018 Status: F Source: [place] 10:21 AM [facility] REPOSITORY [facility] Medical Records Department [address] [place] [address] Operative Report 06/02/18 1011 MR#: [id number] Acct: [id number] Name: ANAYA YBARRA Rep #: [id number] : 1975 42 From: Robin Cheema DO PCP: Gamal Almendarez MD Status: REG [facility] [place] Location: [place] [address] Operative Report Date of Procedure: 06/02/18 Primary Surgeon/Physician: Robin Cheema wire steward: none wire steward: Pre-Operative Diagnosis: Internal derangement right knee Post-Operative Diagnosis: Anterior horn lateral meniscus tear, grade 2/3 chondromalacia medial femoral condyle right knee Surgery/Procedure Performed: Arthroscopic partial lateral meniscectomy and chondroplasty right knee Estimated Blood Loss: minimal Specimen's Removed: none Type of Anesthesia: general ASA Class: 3 Indications: [ ] Patient has failed conservative measures and at this point has elected to undergo the above procedure. Procedure Description: The patient was greeted in the preoperative area. The [right knee ] knee was marked with surgical marker. Preoperative antibiotics were administered. The patient was then taken to the operating suite and placed in a supine position on operating room table. After adequate anesthesia was obtained and airway was secured a well-padded tourniquet was placed on patient's affected extremity. Leg was then prepped and draped in usual sterile fashion. Surgical timeout was performed and confirmed with all present and surgery was commenced. Preoperative antibiotics were administered and the well leg was well padded. Standard anteromedial anterolateral portals were made and a 30 arthroscope was then inserted into the knee. [The patellofemoral joint was in good condition without arthrosis. 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 A probe was used to probe the medial meniscus and it was found to be intact ]. The ACL and PCL were probed and intact. There was an anterior horn tear of the lateral meniscus which was resected back to a firm and stable rim with the arthroscopy shaver. The surface cartilage in the lateral compartment showed no damage. A shaver was used to perform a chondroplasty on the MFC, shaping and smoothing the articular surface cartilage such that no delamination of cartilage was noted on the periphery of the lesion. At this point all instruments were removed. Arthroscopic portals were closed in a standard fashion. 30 cc of 0.5% Marcaine was then injected into the knee. Well-padded nonadherent dressing was applied and secured with an Elvis wrap. Tourniquet was deflated and patient was taken to the recovery room in stable condition. 06/02/18 1021 <Electronically signed by Robin Cheema DO> Date Robin Cheema DO CC: Gamal Almendarez MD; Robin Cheema DO Signed ,URINE Collected: 06/02/2018 Status: F Source: [place] 8:13 AM [facility] REPOSITORY Order Comment: Reason for Laboratory Test PRE OP TYPE CODE TESTS RESULT OUT OF REFERENCE UNITS RANGE LAB L400.8000 Negative Normal HCGUQUAL Negative Result Comment: Very dilute urine specimens, as indicated by a low specific gravity, may not contain airline security representative levels of hCG. If is still suspected, a first morning urine specimen should be collected 48 hours later and tested. Performed By: #### L400.7600 #### [facility] Laboratory [address] [facility] [place], [address] LOWER EXT JOINT ONLY Observed: 04/22/2018 Status: F Source: [place] (ROUTINE) 4:18 PM [facility] REPOSITORY [facility] Imaging Services [address] [place] [address] Lower Ext Joint Only (Routine) MR#: [id number] Acct: [id number] Name: ANAYA YBARRA Rep #: [id number] : 1975 F 42 From: [place] La MD PCP: Gamal Almendarez MD Status: REG CLI Study: Lower Ext Joint Only (Routine) Date of Exam: 04/22/18 Exam# [id number] Ordering Dr: Kwadwo Fair STUDY: MRI RIGHT KNEE REASON FOR EXAM: Right knee pain status post injury almost 2 weeks ago. TECHNIQUE: Standardized fat and water weighted pulse sequences were obtained in all 3 orthogonal planes. COMPARISON: Radiographs 04/16/2018. FINDINGS: There a small tear of the root ligament of the posterior horn of the medial meniscus (T2 coronal image 12). There is mild peripheral subluxation of the medial meniscus. Normal hyaline cartilage of the medial femorotibial compartment. Normal medial femoral condyle and tibial plateau. Normal medial collateral ligamentous complex (MCL). Normal distal semimembranosus, gracilis and semitendinosus tendons. Normal lateral meniscus. Normal hyaline cartilage of the lateral femorotibial compartment. Normal lateral femoral condyle and tibial plateau. Normal proximal tibiofibular articulation. Normal lateral collateral (fibular) ligament. Normal popliteus tendon. Normal biceps femoris tendon. Normal anterior cruciate ligament (ACL). Normal posterior cruciate ligament (PCL). Normal congruent patellofemoral articulation. Normal hyaline cartilage of the patellofemoral compartment. Normal medial and lateral patellar retinaculum. Normal visualized quadriceps tendon. Normal patellar tendon. Normal Hoffa's fat pad. There is a small joint effusion. There is a small popliteal cyst with extravasation of fluid (T2 sagittal images 6-9). There is cystic change in the proximal tibia extending anteriorly from the posterior cruciate ligament insertion site (T2 sagittal images 12-15). MRI/Lower Ext Joint Only (Routine) IMPRESSION: Small tear of the root ligament of the posterior horn of the medial meniscus. Small joint effusion. Small popliteal cyst with extravasation of fluid. Electronically Signed: Kend[place] La MD at 10:04 EDT Tel , Service support , CC: Gamal Almendarez MD; Kwadwo PALACIOS Administrative Services Coordinator: Signed URGENT CARE VISIT Observed: 04/16/2018 Status: F Source: [place] REPORT 9:59 AM [facility] REPOS[facility] [address] [place] [address] [address] [place] [address] OFFICE VISIT Date of Service: 04/16/18 MR#: [id number] Acct: [id number] Name: ANAYA YBARRA Rep #: [id number] : 1975 Provider: Kwadwo PALACIOS Age/Sex: 42/F Location: [facility] Status: Signed Intake Vital Signs04/16/18 Height 5 ft 7 in 04/16/18 Weight: 245 lb 04/16/18 Body Mass Index (BMI) 38.3 04/16/18 Blood Pressure 134/92 H Intake Visit Reasons: RT KNEE PAIN/ INJURY Chief Complaint: Right knee pain [employer] Hand Required: No Accompanied by: self Is patient in pain?: No Allergies cephalexin [From Keflex] Allergy (Verified 04/16/18 09:23) Rash meperidine [From Demerol] Allergy (Verified 04/16/18 09:23) caused vtach Medications Diltiazem CD [Cardizem CD] 180 mg PO DAILY 04/15/15 [History Confirmed 04/16/18] Paroxetine HCl [Paxil] 20 mg PO DAILY 04/15/15 [History Confirmed 04/16/18] Cyclobenzaprine [Flexeril] 10 mg PO TID PRN PRN 06/26/16 [History Confirmed 04/16/18] Ondansetron HCl [Zofran] 4 mg PO 4X/DAY PRN PRN #20 tab 07/03/16 [Rx Confirmed 04/16/18] PFSH Medical History mobi-c (Acute) Hypertension (Chronic) Surgical History H/O neck surgery (Acute) Social History Smoking Status: Never smoker alcohol intake: never HPI HPI Chief Complaint: Right knee pain Details: ANAYA YBARRA, is a 42 F who presents to the office today for initial evaluation right knee pain. Patient states tripping over a laundry at home causing her to fall backwards hyperflexing both of her knees as she describes her lower legs were behind her when she fell. She notes no complaints of left knee pain though moderate severe aching right knee pain which is only persisted/worsened since date of injury. She notes an inability to fully extend her right knee due to discomfort. She notes no giving way of the same. She notes no prior history of injuries or surgeries to her right knee. She notes no complaints of right hip or ankle pain. She notes pain is aggravated to touch and with range of motion alleviated minimally with mild flexion. She notes no other associated symptoms and no other alleviating or aggravating factors. ROS Const Constitutional: No other (ROS negative x10 other than as noted above) Exam Const General: cooperative, healthy appearing, no acute distress, uncomfortable Orientation: alert, awake, oriented x3 HENMT Head: normal to inspection Neck Neck: normal visual inspection, full ROM Chest Chest palpation AND inspection: normal inspection of the chest Resp Effort AND Inspection: normal respiratory effort, able to speak in complete sentences, symmetric chest movement Cardio Rate: regular rate Pulses: radial pulses present, posterior tibial pulses present, dorsalis pedis pulses present GI Inspection: normal to inspection Skin General: no rashes or lesions noted Neuro General: alert, awake, oriented x3, gait normal Cognition: normal cognition Speech: speech normal Gait: normal gait Motor: muscle tone normal throughout Sensory Exam: no sensory deficits noted Extrem General: normal to inspection, abnormal ROM, normal capillary refill, normal exam except as noted (See other below) Other: Unguarded full active range of motion right hip and ankle. Right knee exam: Positive Werner, negative drawer, positive tender to palpation medial and lateral patellar gutters as well as popliteal region. Right knee x-rays today reveal no acute fracture/dislocation though probable Kennedy's cyst visualized; radiology interpretation pending at the time of this dictation. Psych Appearance: grossly normal Mental Status: mental status grossly normal Mood: congruent mood Affect: normal affect Speech and Movement: speech and movement normal Attitude: cooperative Thought Process: normal Thought Content: normal Judgment: judgment good Assessment AND Plan Problems 1. Strain of right knee S86.911A 2. 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 Rest, ice, Advil/Tylenol as needed for symptomatic relief. Elvis wrap as dispensed/instructed today. Crutches as needed to assist ambulate; patient refused now clinic's crutches stating she has her own at home that she will use. Order for MRI right knee no contrast placed today. Follow-up with orthopedics after MRI obtained. Follow-up with the now clinic on an as-needed basis only. Patient states acknowledging understanding all the above. This note was generated with bMenu dictation software. It may contain incorrect words, spelling, and punctuation that were not noted in checking the note before signing. Orders Orders: Coding Level of Care Code Off vis,new,level 4 Diagnoses Strain of right knee S86.911A Internal derangement of right knee M23.91 Time Spent (min) 35 04/16/18 0959 <Electronically signed by Kwadwo PALACIOS> Date Kwadwo PALACIOS Cosigner Signature: Date (if applicable) CC: KNEE 3 VIEWS Observed: 04/16/2018 Status: F Source: [place] 9:22 AM [facility] Imaging Services [address] [place] [address] Knee 3 Views MR#: [id number] Acct: [id number] Name: ANAYA YBARRA Rep #: [id number] : 1975 F 42 From: Andreas Spicer MD PCP: Gamal Almendarez MD Status: REG CLI Study: Knee 3 Views Date of Exam: 04/16/18 Exam# [id number] Ordering Dr: Kwadwo Fair STUDY: X-RAY - RIGHT KNEE REASON FOR EXAM: Female, 42 years old. Pain following a recent fall. TECHNIQUE: 3 view(s) of the knee. COMPARISON: None. FINDINGS: Normal visualized distal femur. Normal visualized proximal tibia and fibula. Normal proximal tibiofibular articulation. Normal medial femorotibial compartment. Normal lateral femorotibial compartment. Normal patellofemoral articulation. There is a 2.2 cm x 1.5 cm small sesamoid bone overlying the posterior lateral femoral condyle. This is suggestive of flabella. The sesamoid bone is usually embedded within the lateral head of the gastrocnemius muscle. RAD/Knee 3 Views IMPRESSION: No acute abnormality is seen. Flabella is seen overlying the posterolateral aspect of the distal lateral femoral condyle. Electronically Signed: Andreas Spicer MD at 10:04 EDT Tel [phone], Service support , CC: Gamal Almendarez MD; Kwadwo PALACIOS Administrative Services Coordinator: Signed URINALYSIS, EMPLOYEE Collected: 02/27/2018 Status: F Source: [place] 8:57 AM [facility] REPOSITORY TYPE CODE TESTS RESULT OUT OF RANGE REFERENCE UNITS LAB L400.3000 Yellow COLOR Normal Yellow LAB L400.3050 Clear Normal CLARITY Sl. Cloudy LAB L400.3200 Normal mg/dl Normal GLUCOSE, UR Normal LAB L400.3300 Negative mg/dL Normal BILIRUBIN URINE Negative LAB L400.3400 Negative mg/dl Normal KETONE UR Negative LAB L400.3465 1.002-1.030 Normal SP.GR. DIPSTX 1.015 LAB L400.3550 5.0 - 8.0 pH UR Normal 8.0 LAB L400.3600 Negative mg/dl PROT Normal DIPSTX Negative LAB L400.3700 Normal mg/dl Normal UROBILI Normal LAB L400.3750 Negative Normal NITRITE UR Negative LAB L400.3780 Negative /ul Normal OCCULT BLOOD-UR Negative LAB L400.3800 Negative /ul LEUK Normal ESTERASE Negative Performed By: #### L400.0100 #### [facility] [address] [place], [address] CBC, EMPLOYEE Collected: 02/27/2018 Status: F Source: [place] 8:57 AM [facility] REPOSITORY TYPE CODE TESTS RESULT OUT OF RANGE REFERENCE UNITS LAB L100.1000 4.4-11.0 K/mm3 Normal WBC 7.7 LAB L100.1200 4.2-5.4 M/mm3 Normal RBC 4.26 LAB L100.1300 12.0-15.0 g/dl Normal HGB 12.4 LAB L100.1400 37-47 % Normal HCT 39.0 LAB L100.1500 81-99 fL Normal MCV 91.5 LAB L100.1600 27.0-32.0 pg Normal MCH 29.1 LAB L100.1700 32-36 g/gl Low MCHC 31.8 LAB L100.1810 11.6-14.6 % Normal RDW CV 13.5 LAB L100.1820 35.1-43.9 fl High RDW SD 44.9 LAB L100.1900 150-450 K/mm3 Normal PLT 418 LAB L100.2000 6.2-12.0 fl Normal MPV 9.8 LAB L100.2110 47-70 % Normal NEUT% 64.5 LAB L100.2210 19-41 % Normal LY% 26.6 LAB L100.2310 0-10 % Normal MONO% 6.4 LAB L100.2410 0-5 % Normal EO% 2.1 LAB L100.2510 0-1 % Normal BASO% 0.4 LAB L100.2620 2.0-7.7 X10 3/uL Normal Absolute Neut 5.0 LAB L100.2720 0.83-4.51 X10 3/ul Normal Absolute Lymph 2.04 Performed By: #### L100.0200 #### [facility] [address] [place], [address] NICOTINE URINE DRUG Collected: 02/27/2018 Status: F Source: [place]EN[place] SCREEN 8:57 AM [facility] REPOSITORY TYPE CODE TESTS RESULT OUT OF RANGE REFERENCE UNITS LAB L505.6250 TO BE Normal CONFIRMED Result Comment: CONFIRMATORY TESTING FOR ALL POSITIVE URINE DRUG SCREEN RESULTS WILL ONLY BE SENT OUT UPON PHYSICIAN ORDER. The results of Urine Drug Screen methods provide only preliminary analytical test results. A more specific alternate chemical method must be used in order to obtain a confirmed analytical result. Gas chromatography/mass spectrometery (GC/MS) is the preferred confirmatory method. Clinical consideration and professional judgement should be applied to any drug of abuse test result, particularly when preliminary positive results are used. LAB L505.6270 <200 ng/mL Normal COT DRG Negative SCREEN Result Comment: Cotinine is the first-stage metabolite of Nicotine. Performed By: #### L505.6240 #### [facility] [address] [place], [address] EMPLOYEE PROFILE Collected: 02/27/2018 Status: F Source: [place] 8:57 AM [facility] REPOSITORY TYPE CODE TESTS RESULT OUT OF RANGE REFERENCE UNITS LAB L501.0100 74-106 mg/dL Normal GLU 92 Result Comment: Please note revised GLUCOSE reference range effective 2017. LAB L501.1000 7-18 mg/dL Normal BUN 7 LAB L501.1100 0.55-1.02 mg/dL Normal CREAT,SERUM 0.73 Result Comment: The validity of the calculated GFR AND GFRAA in patients over 70 years has not been determined. Clinical correlation is essential. LAB L501.1110 >60 mL/min Normal EST GFR 92 Result Comment: Non- GFR Calc LAB L501.1115 >60 mL/min Normal EST GFR - AA 112 Result Comment: GFR Calc LAB L501.1300 10-20 RATIO Low BUN/CRE 9.6 LAB L501.1400 2.6-6.0 mg/dL Normal URIC 3.9 Result Comment: The drugs N-Acetylcysteine and Metamizole may falsely depress this assay. LAB L501.1500 6.4-8.2 g/dL Normal T PROT 7.5 LAB L501.1800 3.2-5.0 g/dL Normal ALB 3.5 LAB L501.1950 2.2-4.2 g/dL Normal GLOB 4.0 LAB L501.2000 0.9-2.4 RATIO Normal A/G 0.9 LAB L501.2200 8.5-10.1 mg/dL Low CA 8.3 LAB L501.2300 2.5-4.9 mg/dL Normal PHOS 2.6 LAB L501.4100 15-37 U/L Normal AST 20 LAB L501.4305 45-117 U/L Normal ALK P 88 LAB L501.4405 13-56 U/L Normal ALT 27 LAB L501.4600 0.20-1.00 mg/dL Normal T BILI 0.40 LAB L501.4700 0.00-0.30 mg/dL Normal D BILI 0.10 LAB L501.4900 200 mg/dL Normal CHOL 186 Result Comment: <200 mg/dL Desirable 200-240 mg/dL Borderline >240 mg/dL High Risk LAB L501.5000 mg/dL Normal TRIG 80 Result Comment: The drugs N-Acetylcysteine and Metamizole may falsely depress this assay. Serum Triglycerides Reference Interval Normal <150 mg/dL Borderline high 150 - 199 mg/dL High 200 - 499 mg/dL Very High > or = 500 mg/dL LAB L501.5300 136-145 mmol/L Normal NA 140 LAB L501.5600 3.5-5.1 mmol/L Normal K 4.1 LAB L501.5900 98-107 mmol/L Normal CL 105 LAB L501.6100 21.0-32.0 mmol/L Normal CO2 27.0 LAB L501.6200 5-15 Normal 8 GAP LAB L501.6400 mg/dL Normal HDL 59 Result Comment: The drugs N-Acetylcysteine and Metamizole may falsely depress this assay. Reference Range HDL <40 mg/dL Low HDL Cholesterol HDL >or= 60 mg/dL High HDL Cholesterol LAB L501.6475 Normal CHOL:HDL 3.20 LAB L501.6500 0-130 mg/dL Normal LDL 111 LAB L501.6600 5-40 mg/dL Normal VLDL 16 LAB L504.2610 84-246 U/L Normal LDH 153 Performed By: #### L500.2900 #### [facility] [place], [address] PROGRESS Observed: 12/28/2017 Status: COMPLETED Source: [place] 10:14 AM [facility] REPOSITORY HNO ID: [id number] Author: Gamal Almendarez Service: (none) Author Type: Physician Type: Progress Notes Filed: 01/12/2018 4:47 PM Note Text: Patient presents with: Medication Follow-up SUBJECTIVE: Anaya Ybarra is a 42 year old year old lady here today for follow up appointment for review of medical conditions. needed this to be her yearly for work--[employer]. Meds effective--addition of Wellbutrin working. PMDD symptoms noted prior to period and better after period would start. Much improved. Will get labs through [employer]. Swimming now. Working on regular exercise. Working on getting back on track with diet. PAST MEDICAL HISTORY Diagnosis Date - Bulging of cervical intervertebral disc without myelopathy - DDD (degenerative disc disease), cervical - Diverticulosis 02/17/2013 CT abd 12/2012 [facility] - Foraminal stenosis of cervical region 06/2014 MRI [facility] 06/2014 - GERD (gastroesophageal reflux disease) - Hypertension 12/29/2012 - Irritable bowel syndrome 09/03/2007 Colonoscopy 01/28 - - Migraine headache with aura 12/29/2014 worse with cervical spine issues - Obesity - Umbilical hernia 02/17/2013 - VT (ventricular tachycardia) ([facility]) 12/29/2012 Following during delivery- no further episodes. Dr. Rodriges, stress testing completed PAST SURGICAL HISTORY Procedure Laterality Date - ANTERIOR DISCECTOMY Left 07/02/2016 Dr. Hennessy - DELIVERY ONLY 11/27 - COLONOSCOP W/ OR W/O [facility] SPEC 2006 Colonoscopy - Dr. Loo - PAST SURGICAL HISTORY OF LAPAROSCOPY - PAST SURGICAL HISTORY OF BLADDER EXTENSION Current Outpatient Prescriptions: PARoxetine (PAXIL) 40 mg tablet Take 1 tablet by mouth once daily. buPROPion XL (WELLBUTRIN XL) 150 mg 24 hr tablet Take 1 tablet by mouth once daily. losartan (COZAAR) 50 mg tablet Take 0.5 tablets by mouth once daily. (last prescription was October 2016) diltiazem CD (CARDIZEM CD) 240 mg 24 hr capsule Take 1 capsule by mouth once daily. dicyclomine (BENTYL) 10 mg capsule Take 1 capsule by mouth before meals and at bedtime. (Patient taking differently: Take 10 mg by mouth as needed. ) SUMAtriptan (IMITREX) 50 mg tablet TAKE 1 TABLET BY MOUTH. MAY REPEAT X1 AFTER 2HRS IF HEADACHE RETURNS No current facility-administered medications for this visit. FAMILY HISTORY Problem Relation Age of Onset - Cancer Paternal Grandfather - Heart Maternal Grandmother - Hypertension Paternal Grandmother - None Mother - None Father - None Sister Social History Marital status: Spouse name: Jay Years of education: Number of children: 1 Occupational History Occupation Employer Comment [employer]* Social History Main Topics Smoking status: Never Smoker Smokeless tobacco: Never Used Alcohol use: No Drug use: No Sexual activity: Yes Comment: OBJECTIVE: BP 130/82 (BP Site: Right Arm, BP Position: Sitting, BP Cuff Size: Regular Adult) Pulse 72 Temp 37 ?C (98.6 ?F) (Temporal Artery) Resp 16 Wt 111.6 kg (246 lb) BMI 38.53 kg/m? Patient is alert, oriented times 3, no apparent distress, affect is bright, reactive. Last 5 Encounter BP Readings: Date: BP: 12/28/2017 130/82 10/30/2017 138/86 08/30/2017 160/120 07/29/2017 130/82 01/22/2017 112/78 Last 5 Encounter Wt Readings: Date: Wt: 12/28/2017 111.6 kg (246 lb) 10/30/2017 109.8 kg (242 lb 1.9 oz) 08/30/2017 0 kg (0 lb) 07/29/2017 106.6 kg (235 lb) 01/22/2017 105.7 kg (233 lb) Heart: Regular rate, rhythm, no murmurs, gallops, rubs. Lungs: Clear to auscultation, bilaterally, breathing non labored. Ext: No cyanosis, clubbing, or edema. ASSESSMENT AND PLAN: Encounter Diagnosis ICD-10-CM 1. Essential hypertension I10 diltiazem CD (CARDIZEM CD) 240 mg 24 hr capsule 2. Anxiety and depression F41.9 buPROPion XL (WELLBUTRIN XL) 150 mg 24 hr tablet F32.9 3. Low serum calcium R79.89 VITAMIN D 25 HYDROXY 4. Encounter for screening mammogram for breast cancer Z12.31 [facility] SCREENING 5. Class 2 obesity due to excess calories without serious comorbidity with body mass index (BMI) of 36.0 to 36.9 in adult E66.09 Z68.36 BP control improved. Continue present management. Noted weight crept up. Stress eating and not exercising contributed.Needs to keep working on diet and exercise with lifestyle changes for effective weight loss plus control DM, HTN and lipids. Anxiety, depression and PMDD symptoms all improved with med adjustments. Continue present management. Will see if needs Vitamin D replaced given low calcium. Further evaluation and treatment as indicated. Above issues addressed with patient. Patient involved in shared decision making for management of her medical issues. History and medications reviewed. Epic updated as needed Refills taken care of and meds adjusted as indicated after reviewed history, exam and labs. Health Maintenance reviewed. Updated record and/or ordered tests as recorded. Encouraged on efforts at healthy diet and regular exercise and adequate sleep. The majority of the visit was spent counseling and/or coordinating care for the patient. Qjya-yk-mdqx time was at least 25 minutes. Gamal Almendarez MD CNOV Observed: 12/28/2017 Status: COMPLETED Source: [place] 9:20 AM [facility] REPOSITORY Office Visit (INTMWS) ANAYA YBARRA ([id number]) 1975 F Date Time Provider Department 12/28/17 9:20 AM GAMAL ALMENDAREZ [facility] During your visit today, we recorded the following information about you: Temperature Pulse Respiration Blood pressure 98.6 degrees 72/minute 16/minute 130/82 Weight 111.6 kg Gamal Almendarez MD 01/12/2018 4:47 PM Signed Patient presents with: Medication Follow-up SUBJECTIVE: Anaya Ybarra is a 42 year old year old lady here today for follow up appointment for review of medical conditions. needed this to be her yearly for work--[employer]. Meds effective--addition of Wellbutrin working. PMDD symptoms noted prior to period and better after period would start. Much improved. Will get labs through [employer]. Swimming now. Working on regular exercise. Working on getting back on track with diet. PAST MEDICAL HISTORY Diagnosis Date - Bulging of cervical intervertebral disc without myelopathy - DDD (degenerative disc disease), cervical - Diverticulosis 02/17/2013 CT abd 12/2012 [facility] - Foraminal stenosis of cervical region 06/2014 MRI [facility] 06/2014 - GERD (gastroesophageal reflux disease) - Hypertension 12/29/2012 - Irritable bowel syndrome 09/03/2007 Colonoscopy 01/28 - - Migraine headache with aura 12/29/2014 worse with cervical spine issues - Obesity - Umbilical hernia 02/17/2013 - VT (ventricular tachycardia) ([facility]) 12/29/2012 Following during delivery- no further episodes. Dr. Rodriges, stress testing completed PAST SURGICAL HISTORY Procedure Laterality Date - ANTERIOR DISCECTOMY Left 07/02/2016 Dr. Hennessy - DELIVERY ONLY 11/27 - COLONOSCOP W/ OR W/O [facility] SPEC 2006 Colonoscopy - Dr. Loo - PAST SURGICAL HISTORY OF LAPAROSCOPY - PAST SURGICAL HISTORY OF BLADDER EXTENSION Current Outpatient Prescriptions: PARoxetine (PAXIL) 40 mg tablet Take 1 tablet by mouth once daily. buPROPion XL (WELLBUTRIN XL) 150 mg 24 hr tablet Take 1 tablet by mouth once daily. losartan (COZAAR) 50 mg tablet Take 0.5 tablets by mouth once daily. (last prescription was October 2016) diltiazem CD (CARDIZEM CD) 240 mg 24 hr capsule Take 1 capsule by mouth once daily. dicyclomine (BENTYL) 10 mg capsule Take 1 capsule by mouth before meals and at bedtime. (Patient taking differently: Take 10 mg by mouth as needed. ) SUMAtriptan (IMITREX) 50 mg tablet TAKE 1 TABLET BY MOUTH. MAY REPEAT X1 AFTER 2HRS IF HEADACHE RETURNS No current facility-administered medications for this visit. FAMILY HISTORY Problem Relation Age of Onset - Cancer Paternal Grandfather - Heart Maternal Grandmother - Hypertension Paternal Grandmother - None Mother - None Father - None Sister Social History Marital status: Spouse name: Jay Years of education: Number of children: 1 Occupational History Occupation Employer Comment [employer]* Social History Main Topics Smoking status: Never Smoker Smokeless tobacco: Never Used Alcohol use: No Drug use: No Sexual activity: Yes Comment: OBJECTIVE: BP 130/82 (BP Site: Right Arm, BP Position: Sitting, BP Cuff Size: Regular Adult) Pulse 72 Temp 37 ?C (98.6 ?F) (Temporal Artery) Resp 16 Wt 111.6 kg (246 lb) BMI 38.53 kg/m? Patient is alert, oriented times 3, no apparent distress, affect is bright, reactive. Last 5 Encounter BP Readings: Date: BP: 12/28/2017 130/82 10/30/2017 138/86 08/30/2017 160/120 07/29/2017 130/82 01/22/2017 112/78 Last 5 Encounter Wt Readings: Date: Wt: 12/28/2017 111.6 kg (246 lb) 10/30/2017 109.8 kg (242 lb 1.9 oz) 08/30/2017 0 kg (0 lb) 07/29/2017 106.6 kg (235 lb) 01/22/2017 105.7 kg (233 lb) Heart: Regular rate, rhythm, no murmurs, gallops, rubs. Lungs: Clear to auscultation, bilaterally, breathing non labored. Ext: No cyanosis, clubbing, or edema. ASSESSMENT AND PLAN: Encounter Diagnosis ICD-10-CM 1. Essential hypertension I10 diltiazem CD (CARDIZEM CD) 240 mg 24 hr capsule 2. Anxiety and depression F41.9 buPROPion XL (WELLBUTRIN XL) 150 mg 24 hr tablet F32.9 3. Low serum calcium R79.89 VITAMIN D 25 HYDROXY 4. Encounter for screening mammogram for breast cancer Z12.31 [facility] SCREENING 5. Class 2 obesity due to excess calories without serious comorbidity with body mass index (BMI) of 36.0 to 36.9 in adult E66.09 Z68.36 BP control improved. Continue present management. Noted weight crept up. Stress eating and not exercising contributed.Needs to keep working on diet and exercise with lifestyle changes for effective weight loss plus control DM, HTN and lipids. Anxiety, depression and PMDD symptoms all improved with med adjustments. Continue present management. Will see if needs Vitamin D replaced given low calcium. Further evaluation and treatment as indicated. Above issues addressed with patient. Patient involved in shared decision making for management of her medical issues. History and medications reviewed. Epic updated as needed Refills taken care of and meds adjusted as indicated after reviewed history, exam and labs. Health Maintenance reviewed. Updated record and/or ordered tests as recorded. Encouraged on efforts at healthy diet and regular exercise and adequate sleep. The majority of the visit was spent counseling and/or coordinating care for the patient. Mymz-as-reda time was at least 25 minutes. Gamal Almendarez MD Referring Provider: SELF [200] Allergies As of Date: 12/28/2017 Noted Allergy Reaction bandaids [Other] 12/18/2005 9 - Itching DEMERAL (MEPERIDINE) 03/19/2012 14 - Other: See Comments Comments: Put patient into v-tach KEFLEX (CEPHALEXIN) 03/19/2012 2 - Rash LATEX 12/18/2005 9 - Itching LISINOPRIL 10/16/2016 5 - Intolerance Comments: Cough Date Reviewed: 12/28/2017 Reviewed by: Siobhan Jay LPN - Fully Assessed Reason for Visit: Medication Follow-up [270] Primary Visit Diagnosis:Essential hypertension [I10] Other Visit Diagnoses:Anxiety and depression [F41.9, F32.9] Low serum calcium [R79.89] Encounter for screening mammogram for breast cancer [Z12.31] Class 2 obesity due to excess calories without serious comorbidity with body mass index (BMI) of 36.0 to 36.9 in adult [E66.09, Z68.36] Order(s):diltiazem CD (CARDIZEM CD) 240 mg 24 hr capsuleTake 1 capsule by mouth once daily.Disp: 90 capsuleRfl: 3 buPROPion XL (WELLBUTRIN XL) 150 mg 24 hr tabletTake 1 tablet by mouth once daily.Disp: 90 tabletRfl: 3 PARoxetine (PAXIL) 40 mg tabletTake 1 tablet by mouth once daily.Disp: 90 tabletRfl: 3 [facility] [[id number]] Order #: [id number] FUTURE VITAMIN D 25 HYDROXY [SQVITD] Order #: [id number] FUTURE Prescriptions as of 12/28/2017 Sig: DILTIAZEM SR 240 MG 24 HR CAP Take 1 capsule by mouth once * BUPROPION XL 150 MG TAB Take 1 tablet by mouth once d* PAROXETINE 40 MG TABLET Take 1 tablet by mouth once d* LOSARTAN 50 MG TABLET Take 0.5 tablets by mouth onc* DICYCLOMINE 10 MG CAPSULE Take 1 capsule by mouth befor* Patient taking differently: Take 10 mg by mouth as needed* SUMATRIPTAN 50 MG TABLET TAKE 1 TABLET BY MOUTH. OCTOBER * Medication notes this encounter DICYCLOMINE 10 MG CAPSULE >> Siobhan Jay LPN 12/28/2017 9:45 AM >> SIOBHAN JAY LPN Sat Dec 28, 2017 9:45 AM PRN Problem List As Of Date 12/28/2017 Noted Resolved IRRITABLE COLON [K58.9] INVALID FOR* More... Screening-pulmonary TB [Z11.1] INVALID FOR* More... Routine medical exam [Z00.00] INVALID FOR* More... VT (ventricular tachycardia) [I47.2] INVALID FOR* More... Hypertension [I10] INVALID FOR* Diverticulosis [K57.90] INVALID FOR* More... Umbilical hernia [K42.9] INVALID FOR* Obesity [E66.9] Migraine headache with aura [G43.109] INVALID FOR* More... Spinal stenosis in cervical region [M48.02] INVALID FOR* Irritable bowel syndrome with diarrhea [K58.0] INVALID FOR* Bulging of cervical intervertebral disc without* 09/03/2016 DDD (degenerative disc disease), cervical [M50.* Foraminal stenosis of cervical region [M99.81] INVALID FOR* More... Prescriptions ordered this encounter Disp Refills Start End DILTIAZEM SR 240 MG 24 HR CAP 90 c* 3 12/28/2017 Route: ORAL Sig: Take 1 capsule by mouth once daily. BUPROPION XL 150 MG TAB 90 t* 3 12/28/2017 Route: ORAL Sig: Take 1 tablet by mouth once daily. PAROXETINE 40 MG TABLET 90 t* 3 12/28/2017 Route: ORAL Sig: Take 1 tablet by mouth once daily. Medications Discontinued During This Encounter diltiazem CD (CARDIZEM CD) 240 mg 24* 90 c* 3 11/16/2016 12/28/2017 Route: ORAL Sig: Take 1 capsule by mouth once daily. Disc: Reason for discontinue is not on file. buPROPion XL (WELLBUTRIN XL) 150 mg * 30 t* 1 10/30/2017 12/28/2017 Route: ORAL Sig: Take 1 tablet by mouth once daily. Disc: Reason for discontinue is not on file. PARoxetine (PAXIL) 40 mg tablet 90 t* 0 12/13/2017 12/28/2017 Cmt: Patient is aware of quantity change to one 40 mg capsule Route: ORAL Sig: Take 1 tablet by mouth once daily. Disc: Reason for discontinue is not on file. Disposition: Return in about 6 months (around 06/30/2018) for 6 months follow up. Follow-up and Disposition History Recorded Encounter Status:Closed by GAMAL ALMENDAREZ MD on 01/12/18 ASHLEYMICHAELBLANE Observed: 11/12/2017 Status: COMPLETED Source: [place] 12:00 AM [facility] REPOSITORY Patient Outreach (INTMWH) ANAYA YBARRA ([id number]) 1975 F Date Time Provider Department 11/12/17 GAMAL ALMENDAREZ [facility] During your visit today, we recorded the following information about you: Allergies As of Date: 11/12/2017 Noted Allergy Reaction bandaids [Other] 12/18/2005 9 - Itching DEMERAL (MEPERIDINE) 03/19/2012 14 - Other: See Comments Comments: Put patient into v-tach KEFLEX (CEPHALEXIN) 03/19/2012 2 - Rash LATEX 12/18/2005 9 - Itching LISINOPRIL 10/16/2016 5 - Intolerance Comments: Cough Date Reviewed: 10/30/2017 Reviewed by: Josefina Vincent - Fully Assessed Visit Diagnosis:Medication management [Z79.899] Prescriptions as of 11/12/2017 Sig: X BUPROPION XL 150 MG TAB Take 1 tablet by mouth once d* LOSARTAN 50 MG TABLET Take 0.5 tablets by mouth onc* X PAROXETINE 20 MG TABLET Take 2 tablets by mouth once * X DILTIAZEM SR 240 MG 24 HR CAP Take 1 capsule by mouth once * SUMATRIPTAN 50 MG TABLET TAKE 1 TABLET BY MOUTH. MAY * X DICYCLOMINE 10 MG CAPSULE Take 1 capsule by mouth befor* Patient taking differently: Take 10 mg by mouth as needed* Problem List As Of Date 11/12/2017 Noted Resolved IRRITABLE COLON [K58.9] INVALID FOR* More... Screening-pulmonary TB [Z11.1] INVALID FOR* More... Routine medical exam [Z00.00] INVALID FOR* More... VT (ventricular tachycardia) [I47.2] INVALID FOR* More... Hypertension [I10] INVALID FOR* Diverticulosis [K57.90] INVALID FOR* More... Umbilical hernia [K42.9] INVALID FOR* Obesity [E66.9] Migraine headache with aura [G43.109] INVALID FOR* More... Spinal stenosis in cervical region [M48.02] INVALID FOR* Irritable bowel syndrome with diarrhea [K58.0] INVALID FOR* Bulging of cervical intervertebral disc without* 09/03/2016 DDD (degenerative disc disease), cervical [M50.* Foraminal stenosis of cervical region [M99.81] INVALID FOR* More... Encounter Status:Closed by ZACK, PRODUSER on 04/04/18 PROGRESS Observed: 10/30/2017 Status: COMPLETED Source: [place] 10:33 AM [facility] REPOSITORY HNO ID: [id number] Author: Em Stover ([employer]) Service: (none) Author Type: Nurse Practitioner Type: Progress Notes Filed: 10/30/2017 10:58 AM Note Text: 10/30/2017 Patient presents with: Medication Problem: Paxil not working. SUBJECTIVE: This is a 41 year old that is here today for concern for anxiety and depression. She states that she has been on paxil for several years and it does tend to work well for 2/4 weeks a month. She did recently increase to 40 mg. Wondering if hormones are playing a part because she tend to notice symptoms around menstrual cycle. She thinks work is a trigger, but she has worked there a long time and feels that she enjoys working there. Symptoms she is noticing include crying more, trouble sleeping, worrying, fidgety. Has tried lexapro and zoloft in the past and did not like them and did not feel that they worked. Denies SI or HI. PAST MEDICAL HISTORY Diagnosis Date - Bulging of cervical intervertebral disc without myelopathy - DDD (degenerative disc disease), cervical - Diverticulosis 02/17/2013 CT abd 12/2012 [facility] - Foraminal stenosis of cervical region 06/2014 MRI [facility] 06/2014 - GERD (gastroesophageal reflux disease) - Hypertension 12/29/2012 - Irritable bowel syndrome 09/03/2007 Colonoscopy 01/28 - Dr.Jabour - Migraine headache with aura 12/29/2014 worse with cervical spine issues - Obesity - Umbilical hernia 02/17/2013 - VT (ventricular tachycardia) (HCC) 12/29/2012 Following during delivery- no further episodes. Dr. Rodriges, stress testing completed ALLERGIES Bandaids [Other]; Demeral [Meperidine]; Keflex [Cephalexin]; Latex; Lisinopril MEDICATIONS Current Outpatient Prescriptions: losartan (COZAAR) 50 mg tablet Take 0.5 tablets by mouth once daily. (last prescription was October 2016) PARoxetine (PAXIL) 20 mg tablet Take 2 tablets by mouth once daily. (will let me know if/when needs new prescription--20 or 40 mg pills) diltiazem CD (CARDIZEM CD) 240 mg 24 hr capsule Take 1 capsule by mouth once daily. dicyclomine (BENTYL) 10 mg capsule Take 1 capsule by mouth before meals and at bedtime. (Patient taking differently: Take 10 mg by mouth as needed. ) SUMAtriptan (IMITREX) 50 mg tablet TAKE 1 TABLET BY MOUTH. MAY REPEAT X1 AFTER 2HRS IF HEADACHE RETURNS No current facility-administered medications for this visit. Medications and allergies reviewed by this provider. SOCIAL HISTORY Social History Marital status: Spouse name: Jay Years of education: Number of children: 1 Occupational History Occupation Employer Comment [employer]* Social History Main Topics Smoking status: Never Smoker Smokeless tobacco: Never Used Alcohol use: No Drug use: No Sexual activity: Yes Comment: REVIEW OF SYSTEMS see HPI Feeling nervous, anxious, or on edge 2 Over half the days Not being able to stop or control worrying 1 Several days Worrying too much about different things 1 Several days Trouble relaxing 2 Over half the days Being so restless that it's hard to sit still 0 Not at all sure Being easily annoyed or irritable 1 Several days Feeling afraid as if something awful might happen 0 Not at all sure KIM-7 Anxiety Score 7 THE LAST 2 WEEKS, HAVE YOU BEEN BOTHERED BY ANY OF THE FOLLOWING? - Little interest or pleasure in doing things 1 SEVERAL DAYS Feeling down, depressed, or hopeless 1 Trouble falling or staying asleep, or sleeping too much 2 Feeling tired or having little energy 2 Poor appetite or overeating 2 Feeling bad yourself-you are a failure or have let yourself or others 1 Trouble concentrating, like reading the paper or watching TV 1 Moving/speaking slowly (others notice) OR being more fidgety/restless 0 Thoughts that you would be better off or of hurting yourself 0 PHQ TOTAL SCORE = 10 OBJECTIVE: BP 138/86 (BP Site: Left Arm, BP Position: Sitting, BP Cuff Size: Large Adult) Pulse 72 Resp 18 Wt 109.8 kg (242 lb 1.9 oz) BMI 37.92 kg/m? . Vital signs reviewed by this provider. PHYSICAL EXAMINATION: General appearance: Well appearing, alert, in no acute distress, well-hydrated, well nourished., Obese Skin: Skin color, texture, turgor normal, no suspicious rashes or lesions Lungs: Lungs clear to auscultation. No wheezing, rhonchi, rales Heart: RRR without murmur, gallop, or rubs. No ectopy Appearance: well dressed well groomed, cooperative and pleasant Behavior: good eye contact Speech: fluent and coherent Mood: euthymic Affect: appropriate Perceptions: none Thought process: goal directed Thought Content: normal Intelligence level: normal Insight: good Judgment: good ASSESSMENT/PLAN: 1. Anxiety and depression - ICD9: 300.00, 311, ICD10: F41.9, F32.9 - continue paxil 40mg - add wellbutrin - discussed and encouraged nonpharmacologic measures - BUPROPION XL 150 MG TAB - follow up in 1 month or sooner if needed Em Stover APRN.TG CNOV Observed: 10/30/2017 Status: COMPLETED Source: [place] 10:20 AM [facility] REPOSITORY Office Visit (FAMPWS) ANAYA YBARRA ([id number]) 1975 F Date Time Provider Department 10/30/17 10:20 AM EM STOVER (TG) FAMPWS During your visit today, we recorded the following information about you: Pulse Respiration Blood pressure Weight 72/minute 18/minute 138/86 109.8 kg Em Stover ([facility]) 10/30/2017 10:58 AM Signed 10/30/2017 Patient presents with: Medication Problem: Paxil not working. SUBJECTIVE: This is a 41 year old that is here today for concern for anxiety and depression. She states that she has been on paxil for several years and it does tend to work well for 2/4 weeks a month. She did recently increase to 40 mg. Wondering if hormones are playing a part because she tend to notice symptoms around menstrual cycle. She thinks work is a trigger, but she has worked there a long time and feels that she enjoys working there. Symptoms she is noticing include crying more, trouble sleeping, worrying, fidgety. Has tried lexapro and zoloft in the past and did not like them and did not feel that they worked. Denies SI or HI. PAST MEDICAL HISTORY Diagnosis Date - Bulging of cervical intervertebral disc without myelopathy - DDD (degenerative disc disease), cervical - Diverticulosis 02/17/2013 CT abd 12/2012 [facility] - Foraminal stenosis of cervical region 06/2014 MRI [facility] 06/2014 - GERD (gastroesophageal reflux disease) - Hypertension 12/29/2012 - Irritable bowel syndrome 09/03/2007 Colonoscopy 01/28 - - Migraine headache with aura 12/29/2014 worse with cervical spine issues - Obesity - Umbilical hernia 02/17/2013 - VT (ventricular tachycardia) ([facility]) 12/29/2012 Following during delivery- no further episodes. Dr. Rodriges, stress testing completed ALLERGIES Bandaids [Other]; Demeral [Meperidine]; Keflex [Cephalexin]; Latex; Lisinopril MEDICATIONS Current Outpatient Prescriptions: losartan (COZAAR) 50 mg tablet Take 0.5 tablets by mouth once daily. (last prescription was October 2016) PARoxetine (PAXIL) 20 mg tablet Take 2 tablets by mouth once daily. (will let me know if/when needs new prescription--20 or 40 mg pills) diltiazem CD (CARDIZEM CD) 240 mg 24 hr capsule Take 1 capsule by mouth once daily. dicyclomine (BENTYL) 10 mg capsule Take 1 capsule by mouth before meals and at bedtime. (Patient taking differently: Take 10 mg by mouth as needed. ) SUMAtriptan (IMITREX) 50 mg tablet TAKE 1 TABLET BY MOUTH. MAY REPEAT X1 AFTER 2HRS IF HEADACHE RETURNS No current facility-administered medications for this visit. Medications and allergies reviewed by this provider. SOCIAL HISTORY Social History Marital status: Spouse name: Jay Years of education: Number of children: 1 Occupational History Occupation Employer Comment [employer]* Social History Main Topics Smoking status: Never Smoker Smokeless tobacco: Never Used Alcohol use: No Drug use: No Sexual activity: Yes Comment: REVIEW OF SYSTEMS see HPI Feeling nervous, anxious, or on edge 2 Over half the days Not being able to stop or control worrying 1 Several days Worrying too much about different things 1 Several days Trouble relaxing 2 Over half the days Being so restless that it's hard to sit still 0 Not at all sure Being easily annoyed or irritable 1 Several days Feeling afraid as if something awful might happen 0 Not at all sure KIM-7 Anxiety Score 7 THE LAST 2 WEEKS, HAVE YOU BEEN BOTHERED BY ANY OF THE FOLLOWING? - Little interest or pleasure in doing things 1 SEVERAL DAYS Feeling down, depressed, or hopeless 1 Trouble falling or staying asleep, or sleeping too much 2 Feeling tired or having little energy 2 Poor appetite or overeating 2 Feeling bad yourself-you are a failure or have let yourself or others 1 Trouble concentrating, like reading the paper or watching TV 1 Moving/speaking slowly (others notice) OR being more fidgety/restless 0 Thoughts that you would be better off or of hurting yourself 0 PHQ TOTAL SCORE = 10 OBJECTIVE: BP 138/86 (BP Site: Left Arm, BP Position: Sitting, BP Cuff Size: Large Adult) Pulse 72 Resp 18 Wt 109.8 kg (242 lb 1.9 oz) BMI 37.92 kg/m? . Vital signs reviewed by this provider. PHYSICAL EXAMINATION: General appearance: Well appearing, alert, in no acute distress, well-hydrated, well nourished., Obese Skin: Skin color, texture, turgor normal, no suspicious rashes or lesions Lungs: Lungs clear to auscultation. No wheezing, rhonchi, rales Heart: RRR without murmur, gallop, or rubs. No ectopy Appearance: well dressed well groomed, cooperative and pleasant Behavior: good eye contact Speech: fluent and coherent Mood: euthymic Affect: appropriate Perceptions: none Thought process: goal directed Thought Content: normal Intelligence level: normal Insight: good Judgment: good ASSESSMENT/PLAN: 1. Anxiety and depression - ICD9: 300.00, 311, ICD10: F41.9, F32.9 - continue paxil 40mg - add wellbutrin - discussed and encouraged nonpharmacologic measures - BUPROPION XL 150 MG TAB - follow up in 1 month or sooner if needed Em Stover APRN.C [employer] Referring Provider: SELF [200] Allergies As of Date: 10/30/2017 Noted Allergy Reaction bandaids [Other] 12/18/2005 9 - Itching DEMERAL (MEPERIDINE) 03/19/2012 14 - Other: See Comments Comments: Put patient into v-tach KEFLEX (CEPHALEXIN) 03/19/2012 2 - Rash LATEX 12/18/2005 9 - Itching LISINOPRIL 10/16/2016 5 - Intolerance Comments: Cough Date Reviewed: 10/30/2017 Reviewed by: Josefina Vincent - Fully Assessed Reason for Visit: Medication Problem [509] Cmt: Paxil not working. Primary Visit Diagnosis:Anxiety and depression [F41.9, F32.9] Order(s):buPROPion XL (WELLBUTRIN XL) 150 mg 24 hr tabletTake 1 tablet by mouth once daily.Disp: 30 tabletRfl: 1 Prescriptions as of 10/30/2017 Sig: LOSARTAN 50 MG TABLET Take 0.5 tablets by mouth onc* PAROXETINE 20 MG TABLET Take 2 tablets by mouth once * DILTIAZEM SR 240 MG 24 HR CAP Take 1 capsule by mouth once * DICYCLOMINE 10 MG CAPSULE Take 1 capsule by mouth befor* Patient taking differently: Take 10 mg by mouth as needed* SUMATRIPTAN 50 MG TABLET TAKE 1 TABLET BY MOUTH. OCTOBER * BUPROPION XL 150 MG TAB Take 1 tablet by mouth once d* Problem List As Of Date 10/30/2017 Noted Resolved IRRITABLE COLON [K58.9] INVALID FOR* More... Screening-pulmonary TB [Z11.1] INVALID FOR* More... Routine medical exam [Z00.00] INVALID FOR* More... VT (ventricular tachycardia) [I47.2] INVALID FOR* More... Hypertension [I10] INVALID FOR* Diverticulosis [K57.90] INVALID FOR* More... Umbilical hernia [K42.9] INVALID FOR* Obesity [E66.9] Migraine headache with aura [G43.109] INVALID FOR* More... Spinal stenosis in cervical region [M48.02] INVALID FOR* Irritable bowel syndrome with diarrhea [K58.0] INVALID FOR* Bulging of cervical intervertebral disc without* 09/03/2016 DDD (degenerative disc disease), cervical [M50.* Foraminal stenosis of cervical region [M99.81] INVALID FOR* More... Prescriptions ordered this encounter Disp Refills Start End BUPROPION XL 150 MG TAB 30 t* 1 10/30/2017 10/30/2017 Route: ORAL Sig: Take 1 tablet by mouth once daily. BUPROPION XL 150 MG TAB 30 t* 1 10/30/2017 Route: ORAL Sig: Take 1 tablet by mouth once daily. Medications Discontinued During This Encounter buPROPion XL (WELLBUTRIN XL) 150 mg * 30 t* 1 10/30/2017 10/30/2017 Route: ORAL Sig: Take 1 tablet by mouth once daily. Disc: Reason for discontinue is not on file. Disposition: Return in about 4 weeks (around 11/27/2017). Follow-up and Disposition History Recorded Questionnaire: KIM-7 ANXIETY SCALE Feeling nervous, anxious, or on edge -> 2 Over half the days Not being able to stop or control worrying -> 1 Several days Worrying too much about different things -> 1 Several days Trouble relaxing -> 2 Over half the days Being so restless that it's hard to sit still -> 0 Not at all sure Being easily annoyed or irritable -> 1 Several days Feeling afraid as if something awful might happen -> 0 Not at all sure KIM-7 Anxiety Score -> 7 Questionnaire: PHQ-9 THE LAST 2 WEEKS, HAVE YOU BEEN BOTHERED BY ANY OF THE FOLLOWING? -> - Little interest or pleasure in doing things -> 1 SEVERAL DAYS Feeling down, depressed, or hopeless -> 1 Trouble falling or staying asleep, or sleeping too much - > 2 Feeling tired or having little energy -> 2 Poor appetite or overeating -> 2 Feeling bad yourself-you are a failure or have let yourself or others -> 1 Trouble concentrating, like reading the paper or watching TV -> 1 Moving/speaking slowly (others notice) OR being more fidgety/restless -> 0 Thoughts that you would be better off or of hurting yourself -> 0 PHQ TOTAL SCORE = -> 10 Encounter Status:Closed by EM STOVER on 10/30/17 INITAL EVALUATION (1) Observed: 09/13/2017 Status: F Source: [facility] 10:32 AM [facility] REPOSITORY [facility] Physical Therapy [address] [place] [address] Fax REHABILITATION SERVICES INITIAL EVALUATION MR#: [id number] Acct: [id number] Name: ANAYA YBARRA Rep #: [id number] : 1975 41 From: Mindi Mcpherson DPT Referring Dr.: Kenji PALACIOS Status: REG RCR Insurance: [facility] [employer] SELF PAY INSURANCE Patient's Visit Information ANAYA YBARRA is a 41 year old F referred to Physical Therapy by Kenji PALACIOS.[facility] with a diagnosis of Ankle Sprain. Date of Evaluation: 09/13/17 Physical Therapist: Mindi Mcpherson - Visit Plan Frequency: 2-3x /Week Duration: 4 Weeks Plan: Patient to see MD on Saturday- if wbat then progress 2-3x a week for 4 weeks - Subjective Subjective: Tripped and fell off a step in the garage and the right ankle rolled to the inside. X-rayed 2 weeks ago and will have another one today. NWB for 2 weeks today and partial WB as of today. She did not want to use the crutches because it was hurting her other foot. worst: 810 Agg: being on it, movement. Best: 310 Eases: rest, ice, elevation. Sleep: wakes her up- moves all over. Pain is located the medial side of the ankle, top of the foot and down the into the heel. Burning, achy and sharp when she moves it wrong. No N/T in the foot. 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 PMHx: neck surgery, , HTn meds: cartisone - Objective Posture: FH, RS. Gait: antalgic- patient was to be NWB but ambulated into the clinic FWB with decreased stance on the right LE. Girth: Malleolus: 28 cm Figure 8: 55cm, Mets: 22.5cm. ROM: DF: neutral, PF: 30 degrees, Inv: 15 degrees, Ever: 10 degrees with bret. Observation: mild brusing. Palpation: tender along medial and lateral malleolus and along foot. x - Goals Goal 1:: Patient will be I with HEP and progression Goal Time Frame: 4-6 Weeks Goal 2:: Patient will demo full AROM of the ankle Goal Time Frame: 4-6 Weeks Goal 3:: Patient will ambulate >300 feet with a normalized gait pattern and LRD as per allowed WB by md Goal Time Frame: 4-6 Weeks Goal 4:: patient will SLS for 15 sec without LOB Goal Time Frame: 4-6 Weeks - Rehabilitation Potential Physical Therapy Diagnosis: Patient presents with hypomobility- she has decreased ROM, strength and muscular endurance s/p ankle sprain decreasing ability to perform ADL's. Rehabilitation Potential: Fair - Anticipated Interventions Patient/Client Instruction: Educate patient on: Benefits of Fitness Program For the Purpose of:: To improve performance and independence with ADL's Therapeutic Exercise to Include: Strength training, Endurance training, Balance training, Agility training, Body mechanics, Postural training, Flexibilty training, Gait and locomotor training, Neuromotor development, Passive ROM, Active ROM For the Purpose of:: To improve muscle performance and motor function TENS: Yes Cryotherapy (ice pack, ice massage): Yes Thermo therapy (hot pack): Yes Ultrasound (thermal/non thermal): Yes For the Purpose of:: To decrease pain Thank you for the opportunity to evaluate your patient. For Medicare and Medicare HMO plans, please review the plan of care and approve it. It will need to be FAXED BACK to us at [phone] for Medicare purposes. Please let me know if there are questions or concerns regarding this plan of care. Physician Signature: Date: <Electronically signed by Mindi Mcpherson DPT> 09/13/17 1032 CC: Gamal Almendarez MD; Kenji PALACIOS ELR Signed For Medicare only, by signing this I certify the plan of care. Physicians Signature Date ANKLE MIN 3 VIEWS Observed: 09/13/2017 Status: F Source: [place] 10:28 AM [facility] REPOSITORY [facility] Imaging Services [address] [place] [id number] Ankle min 3 Views MR#: [id number] Acct: [id number] Name: ANAYA YBARRA Rep #: [id number] : 1975 F 41 From: Kwadwo Blake MD PCP: Gamal Almendarez MD Status: REG CLI Study: Ankle min 3 Views Date of Exam: 09/13/17 Exam# [id number] Ordering Dr: Kenji Coates PA-C STUDY: X-RAY - RIGHT ANKLE REASON FOR EXAM: Female, 41 years old. Brain TECHNIQUE: 3 view(s) of the ankle. COMPARISON: None. FINDINGS: Normal visualized distal tibia and fibula. Normal medial and lateral malleoli. Normal tibiotalar articulation and ankle mortise. Calcaneal spurring. The visualized subtalar, talonavicular, calcaneocuboid and tarsal articulations are normal. The soft tissue structures are unremarkable. RAD/Ankle min 3 Views IMPRESSION: No fracture Electronically Signed: Kwadwo Blake MD at 10:15 EDT Tel , Service support , CC: Gamal Almendarez MD; Kenji PALACIOS Administrative Services Coordinator: Signed FOOT MIN 3 VIEWS Observed: 09/13/2017 Status: F Source: [place] 10:28 AM [facility] REPOSITORY [facility] Imaging Services [address] [place] [address] Foot min 3 Views MR#: [id number] Acct: [id number] Name: ANAYA YBARRA Rep #: [id number] : 1975 F 41 From: Kwadwo Blake MD PCP: Gamal Almendarez MD Status: REG CLI Study: Foot min 3 Views Date of Exam: 09/13/17 Exam# [id number] Ordering Dr: Kenji CoatesC STUDY: X-RAY - RIGHT FOOT CLINICAL: Female, 41 years old. Brain TECHNIQUE: 3 view(s) of the foot. COMPARISON: None. FINDINGS: There is avulsion at the anterolateral aspect of the calcaneus at the origin of the extensor digitorum brevis musculature. 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 Normal visualized subtalar, talonavicular, calcaneocuboid, tarsal and tarsometatarsal articulations. Normal metatarsi. Normal metatarsophalangeal joint of the great toe. Normal tibial and fibular sesamoid bones. Normal interphalangeal joint of the great toe. Normal phalanges of the great toe. Normal second through fifth metatarsophalangeal joints. Normal interphalangeal joints and phalanges of the lesser toes. The soft tissue structures are unremarkable. RAD/Foot min 3 Views IMPRESSION: Avulsion at the anterolateral aspect of the calcaneus Accessory navicular Electronically Signed: Kwadwo Blake MD at 10:16 EDT Tel , Service support , CC: Gamal Almendarez MD; Kenji PALACIOS Administrative Services Coordinator: Signed XR FOOT 3V AP/LAT/OBL Observed: 08/30/2017 Status: F Source: [facility] 6:26 PM [facility] REPOSITORY * * *Final Report* * * DATE OF EXAM: Aug 30 2017 6:26PM WOX [id number] - XR FOOT 3V AP/LAT/OBL RT / PROCEDURE REASON: Unspecified injury of right foot, initial encounter * * * * Physician Interpretation * * * * Indication: Right ankle and foot pain Comparison: None 3 views of the right ankle and 3 views of the right foot are obtained. There is normal architecture and mineralization of the bones. There is no acute fracture or dislocation. Joint spaces are maintained. There are plantar and posterior calcaneal spurs. Impression: 1. No acute fracture or dislocation. Administrative Services Coordinator: PRABHU Transcribe Date/Time: Aug 30 2017 6:32P Dictated by : RINA JAMES MD This examination was interpreted and the report reviewed and electronically signed by: RINA JAMES MD on Aug 30 2017 6:35PM EST [id number] XR ANKLE 3V AP/LAT/OBL Observed: 08/30/2017 Status: F Source: [facility] 6:26 PM [facility] REPOSITORY * * *Final Report* * * DATE OF EXAM: Aug 30 2017 6:26PM WOX [id number] - XR ANKLE 3V AP/LAT/OBL RT / PROCEDURE REASON: Unspecified injury of right ankle, initial encounter * * * * Physician Interpretation * * * * Indication: Right ankle and foot pain Comparison: None 3 views of the right ankle and 3 views of the right foot are obtained. There is normal architecture and mineralization of the bones. There is no acute fracture or dislocation. Joint spaces are maintained. There are plantar and posterior calcaneal spurs. Impression: 1. No acute fracture or dislocation. Administrative Services Coordinator: PSCB Transcribe Date/Time: Aug 30 2017 6:32P Dictated by : RINA JAMES MD This examination was interpreted and the report reviewed and electronically signed by: RINA JAMES MD on Aug 30 2017 6:35PM EST [id number] PROGRESS Observed: 08/30/2017 Status: COMPLETED Source: [place] 6:11 PM [facility] REPOSITORY HNO ID: [id number] Author: Fran Cavazos (Rt) Service: (none) Author Type: Food Service Driver Type: Progress Notes Filed: 08/30/2017 6:21 PM Note Text: Radiology Service Progress Note PATIENT NAME: Anaya Ybarra DATE OF SERVICE: August 30, 2017 TIME: 6:11 PM PATIENT IDENTITY VERIFICATION COMPLETED USING TWO (2) METHODS: Patient confirmed name verbally and Date of . PATIENT GENDER DATA: Female. status: : No status: NO. PATIENT RELEVANT IMPLANT DATA REVIEWED: Not Applicable RADIOLOGY DEPARTMENT: General X-ray: Exam(s) Completed: Lower Extremity X-Ray(s): Ankle, Right and Foot, Right: PERIPHERAL IV DATA: Not applicable SIGNED BY: RT Macy August 30, 2017 6:11 PM PROGRESS Observed: 08/30/2017 Status: COMPLETED Source: [place] 6:04 PM [facility] REPOSITORY HNO ID: [id number] Author: Asya Valdez Service: (none) Author Type: Nurse Practitioner Type: Progress Notes Filed: 08/30/2017 7:17 PM Note Text: Subjective HPI Anaya Ybarra is a 41 year old female who presents with right foot and ankle pain after twisting her ankle and falling at home. She elevated the foot afterwards. She rates the pain an 8/10. She has bruising on the lateral side of the right foot. Review of Systems Constitutional: Negative. Negative for fever. Musculoskeletal: Positive for falls and joint pain. See HPI Skin: Negative. BP 160/120 Pulse 94 Temp 37.2 ?C (99 ?F) (Left Tympanic) Resp 18 PAST MEDICAL HISTORY Diagnosis Date - Bulging of cervical intervertebral disc without myelopathy - DDD (degenerative disc disease), cervical - Diverticulosis 02/17/2013 CT abd 12/2012 [facility] - Foraminal stenosis of cervical region 06/2014 MRI [facility] 06/2014 - GERD (gastroesophageal reflux disease) - Hypertension 12/29/2012 - Irritable bowel syndrome 09/03/2007 Colonoscopy 01/28 - - Migraine headache with aura 12/29/2014 worse with cervical spine issues - Obesity - Umbilical hernia 02/17/2013 - VT (ventricular tachycardia) ([facility]) 12/29/2012 Following during delivery- no further episodes. Dr. Rodriges, stress testing completed PAST SURGICAL HISTORY Procedure Laterality Date - ANTERIOR DISCECTOMY Left 07/02/2016 Dr. Hennessy - DELIVERY ONLY 11/27 - COLONOSCOP W/ OR W/O [facility] SPEC 2006 Colonoscopy - Dr. Loo - PAST SURGICAL HISTORY OF LAPAROSCOPY - PAST SURGICAL HISTORY OF BLADDER EXTENSION ALLERGIES Demeral [Meperidine]; Keflex [Cephalexin]; Latex; Lisinopril; Bandaids [Other] MEDICATIONS losartan (COZAAR) 50 mg tablet Take 0.5 tablets by mouth once daily. (last prescription was October 2016) PARoxetine (PAXIL) 20 mg tablet Take 2 tablets by mouth once daily. (will let me know if/when needs new prescription--20 or 40 mg pills) diltiazem CD (CARDIZEM CD) 240 mg 24 hr capsule Take 1 capsule by mouth once daily. dicyclomine (BENTYL) 10 mg capsule Take 1 capsule by mouth before meals and at bedtime. SUMAtriptan (IMITREX) 50 mg tablet TAKE 1 TABLET BY MOUTH. MAY REPEAT X1 AFTER 2HRS IF HEADACHE RETURNS FAMILY HISTORY Problem Relation Age of Onset - Cancer Paternal Grandfather - Heart Maternal Grandmother - Hypertension Paternal Grandmother - None Mother - None Father - None Sister Social History Substance Use Topics - Smoking status: Never Smoker - Smokeless tobacco: Never Used - Alcohol use No Objective Physical Exam Constitutional: She is well-developed, well-nourished, and in no distress. Musculoskeletal: Right ankle: Normal. She exhibits normal range of motion, no swelling, no ecchymosis, no deformity and normal pulse. No tenderness. Achilles tendon normal. Right foot: There is tenderness, bony tenderness and swelling. There is normal range of motion, normal capillary refill, no crepitus and no deformity. Feet: Neurological: She is alert. Skin: Skin is warm and dry. No rash noted. No erythema. Nursing note and vitals reviewed. ASSESSMENT/PLAN: 1. Right foot injury, initial encounter - ICD9: 959.7, ICD10: S99.921A (primary diagnosis) - XR FOOT GENERAL 3V AP/LAT/OBL RT. My reading: negative. Radiologist Impression: 1. ?No acute fracture or dislocation. Dictated by : RINA JAMES MD - CONSULT TO ORTHOPAEDICS 2. Right ankle injury, initial encounter - ICD9: 959.7, ICD10: S99.911A - XR ANKLE GENERAL 3V AP/LAT/OBL RT: My reading: negative. Radiologist Impression: 1. ?No acute fracture or dislocation. Dictated by : RINA JAMES MD - CONSULT TO ORTHOPAEDICS -post op shoe applied. - RICE therapy - Follow-up with orthopedics in 3-5 days if symptoms have not improved or sooner if symptoms worsen - Discussed red flags and need for immediate medical evaluation if any occur. - Discussed supportive care treatment with fluids, rest and analgesia. - Discussed expected course of illness Asya Valdez CNP CNOV Observed: 08/30/2017 Status: COMPLETED Source: [place] 6:00 PM [facility] REPOSITORY Office Visit (WSTR) ANAYA YBARRA ([id number]) 1975 F Date Time Provider Department 08/30/17 6:00 PM [facility] During your visit today, we recorded the following information about you: Temperature Pulse Respiration Blood pressure 99 degrees 94/minute 18/minute 160/120 Asya Valdez CNP 08/30/2017 7:17 PM Signed Subjective HPI Anaya Ybarra is a 41 year old female who presents with right foot and ankle pain after twisting her ankle and falling at home. She elevated the foot afterwards. She rates the pain an 8/10. She has bruising on the lateral side of the right foot. Review of Systems Constitutional: Negative. Negative for fever. Musculoskeletal: Positive for falls and joint pain. See HPI Skin: Negative. BP 160/120 Pulse 94 Temp 37.2 ?C (99 ?F) (Left Tympanic) Resp 18 PAST MEDICAL HISTORY Diagnosis Date - Bulging of cervical intervertebral disc without myelopathy - DDD (degenerative disc disease), cervical - Diverticulosis 02/17/2013 CT abd 12/2012 [facility] - Foraminal stenosis of cervical region 06/2014 MRI [facility] 06/2014 - GERD (gastroesophageal reflux disease) - Hypertension 12/29/2012 - Irritable bowel syndrome 09/03/2007 Colonoscopy 01/28 - - Migraine headache with aura 12/29/2014 worse with cervical spine issues - Obesity - Umbilical hernia 02/17/2013 - VT (ventricular tachycardia) ([facility]) 12/29/2012 Following during delivery- no further episodes. Dr. Rodriges, stress testing completed PAST SURGICAL HISTORY Procedure Laterality Date - ANTERIOR DISCECTOMY Left 07/02/2016 Dr. Hennessy - DELIVERY ONLY 11/27 - COLONOSCOP W/ OR W/O [facility] SPEC 2006 Colonoscopy - Dr. Loo - PAST SURGICAL HISTORY OF LAPAROSCOPY - PAST SURGICAL HISTORY OF BLADDER EXTENSION ALLERGIES Demeral [Meperidine]; Keflex [Cephalexin]; Latex; Lisinopril; Bandaids [Other] MEDICATIONS losartan (COZAAR) 50 mg tablet Take 0.5 tablets by mouth once daily. (last prescription was October 2016) PARoxetine (PAXIL) 20 mg tablet Take 2 tablets by mouth once daily. (will let me know if/when needs new prescription--20 or 40 mg pills) diltiazem CD (CARDIZEM CD) 240 mg 24 hr capsule Take 1 capsule by mouth once daily. dicyclomine (BENTYL) 10 mg capsule Take 1 capsule by mouth before meals and at bedtime. SUMAtriptan (IMITREX) 50 mg tablet TAKE 1 TABLET BY MOUTH. MAY REPEAT X1 AFTER 2HRS IF HEADACHE RETURNS FAMILY HISTORY Problem Relation Age of Onset - Cancer Paternal Grandfather - Heart Maternal Grandmother - Hypertension Paternal Grandmother - None Mother - None Father - None Sister Social History Substance Use Topics - Smoking status: Never Smoker - Smokeless tobacco: Never Used - Alcohol use No Objective Physical Exam Constitutional: She is well-developed, well-nourished, and in no distress. Musculoskeletal: Right ankle: Normal. She exhibits normal range of motion, no swelling, no ecchymosis, no deformity and normal pulse. No tenderness. Achilles tendon normal. Right foot: There is tenderness, bony tenderness and swelling. There is normal range of motion, normal capillary refill, no crepitus and no deformity. Feet: Neurological: She is alert. Skin: Skin is warm and dry. No rash noted. No erythema. Nursing note and vitals reviewed. ASSESSMENT/PLAN: 1. Right foot injury, initial encounter - ICD9: 959.7, ICD10: S99.921A (primary diagnosis) - XR FOOT GENERAL 3V AP/LAT/OBL RT. My reading: negative. Radiologist Impression: 1. ?No acute fracture or dislocation. Dictated by : RINA JAMES MD - CONSULT TO ORTHOPAEDICS 2. Right ankle injury, initial encounter - ICD9: 959.7, ICD10: S99.911A - XR ANKLE GENERAL 3V AP/LAT/OBL RT: My reading: negative. Radiologist Impression: 1. ?No acute fracture or dislocation. Dictated by : RINA JAMES MD - CONSULT TO ORTHOPAEDICS -post op shoe applied. - RICE therapy - Follow-up with orthopedics in 3-5 days if symptoms have not improved or sooner if symptoms worsen - Discussed red flags and need for immediate medical evaluation if any occur. - Discussed supportive care treatment with fluids, rest and analgesia. - Discussed expected course of illness TG Chamorro CNP 08/30/2017 6:42 PM Signed Foot Sprain You have been diagnosed with a sprain of your foot. ? A sprain of your foot is an injury to the ligaments in your foot. It IS NOT the same as a sprain of the ankle. A sprain is an injury to a ligament, usually a tear or partial tear. Sprains can often be as painful as a fracture. Sprains can be divided into 3 categories by the amount of injury to the ligaments. A first- degree sprain is considered a minor tear whereas a third degree sprain often involves a chip fracture of the bone that to which the ligament is attached. The general care of a sprain includes the use of a medication to reduce pain, the use of a splint to reduce movement and Resting, Icing, Compressing and Elevating the injured area. Remember this as ANDquot;RICE.ANDquot; ? REST: Limit the use of the injured body part. ? ICE: By applying ice to the affected area, swelling and pain can be reduced. Place some ice cubes in a re-sealable (Ziploc) bag and add some water. Put a thin washcloth between the bag and your skin. Apply the ice bag to the area for at least 20 minutes. Do this at least 4 times per day. Using the ice for longer times and more frequently is OK. NEVER APPLY ICE DIRECTLY TO THE SKIN. ? COMPRESS: Compression means to apply pressure around the injured area such as with a splint, cast or an elvis bandage. Compression decreases swelling and improves comfort. Compression should be tight enough to relieve swelling but not so tight as to decrease circulation. Increasing pain, numbness, tingling, or change in skin color, are all signs of decreased circulation. ? ELEVATE: Elevate the injured part. For example, a leg can be elevated by placing the leg on a chair while sitting and propped up on pillows while lying down. You have been given an orthopedic ANDquot;cast shoe,ANDquot; also called a ANDquot;hard shoe.ANDquot; This shoe is used to make walking more comfortable by not letting your foot bend too much while walking. You can use the shoe for comfort. YOU SHOULD SEEK MEDICAL ATTENTION IMMEDIATELY IF ANY OF THE FOLLOWING OCCURS: ? You experience a severe increase in pain in the affected area. ? You develop new numbness and tingling in or below the affected area. ? You develop a cold, pale foot that appears to have a problem with its blood supply. Referring Provider: SELF [200] Allergies As of Date: 08/30/2017 Noted Allergy Reaction DEMERAL (MEPERIDINE) 03/19/2012 14 - Other: See Comments Comments: Put patient into v-tach KEFLEX (CEPHALEXIN) 03/19/2012 2 - Rash LATEX 12/18/2005 9 - Itching LISINOPRIL 10/16/2016 5 - Intolerance Comments: Cough bandaids [Other] 12/18/2005 9 - Itching Date Reviewed: 08/30/2017 Reviewed by: [facility] José Miguel - Fully Assessed Reason for Visit: Fall [218] Primary Visit Diagnosis:Right foot injury, initial encounter [S99.991A] Other Visit Diagnosis:Right ankle injury, initial encounter [S90.965Y] Order(s):XR ANKLE GENERAL 3V AP/LAT/OBL RT [8172803] Order #: [id number] FUTURE XR FOOT GENERAL 3V AP/LAT/OBL RT [6342809] Order #: [id number] FUTURE CONSULT TO ORTHOPAEDICS [9026] Order #: [id number]: 1 Prescriptions as of 08/30/2017 Sig: LOSARTAN 50 MG TABLET Take 0.5 tablets by mouth onc* PAROXETINE 20 MG TABLET Take 2 tablets by mouth once * DILTIAZEM SR 240 MG 24 HR CAP Take 1 capsule by mouth once * DICYCLOMINE 10 MG CAPSULE Take 1 capsule by mouth befor* Patient taking differently: Take 10 mg by mouth twice boubacar* SUMATRIPTAN 50 MG TABLET TAKE 1 TABLET BY MOUTH. OCTOBER * Problem List As Of Date 08/30/2017 Noted Resolved IRRITABLE COLON [K58.9] INVALID FOR* More... Screening-pulmonary TB [Z11.1] INVALID FOR* More... Routine medical exam [Z00.00] INVALID FOR* More... VT (ventricular tachycardia) [I47.2] INVALID FOR* More... Hypertension [I10] INVALID FOR* Diverticulosis [K57.90] INVALID FOR* More... Umbilical hernia [K42.9] INVALID FOR* Obesity [E66.9] Migraine headache with aura [G43.109] INVALID FOR* More... Spinal stenosis in cervical region [M48.02] INVALID FOR* Irritable bowel syndrome with diarrhea [K58.0] INVALID FOR* Bulging of cervical intervertebral disc without* 09/03/2016 DDD (degenerative disc disease), cervical [M50.* Foraminal stenosis of cervical region [M99.81] INVALID FOR* More... Other instructions from your clinician: Foot Sprain You have been diagnosed with a sprain of your foot. ? A sprain of your foot is an injury to the ligaments in your foot. It IS NOT the same as a sprain of the ankle. A sprain is an injury to a ligament, usually a tear or partial tear. Sprains can often be as painful as a fracture. Sprains can be divided into 3 categories by the amount of injury to the ligaments. A first-degree sprain is considered a minor tear whereas a third degree sprain often involves a chip fracture of the bone that to which the ligament is attached. The general care of a sprain includes the use of a medication to reduce pain, the use of a splint to reduce movement and Resting, Icing, Compressing and Elevating the injured area. Remember this as RICE. ? REST: Limit the use of the injured body part. ? ICE: By applying ice to the affected area, swelling and pain can be reduced. Place some ice cubes in a re-sealable (Ziploc) bag and add some water. Put a thin washcloth between the bag and your skin. Apply the ice bag to the area for at least 20 minutes. Do this at least 4 times per day. Using the ice for longer times and more frequently is OK. NEVER APPLY ICE DIRECTLY TO THE SKIN. ? COMPRESS: Compression means to apply pressure around the injured area such as with a splint, cast or an elvis bandage. Compression decreases swelling and improves comfort. Compression should be tight enough to relieve swelling but not so tight as to decrease circulation. Increasing pain, numbness, tingling, or change in skin color, are all signs of decreased circulation. ? ELEVATE: Elevate the injured part. For example, a leg can be elevated by placing the leg on a chair while sitting and propped up on pillows while lying down. You have been given an orthopedic cast shoe, also called a hard shoe. This shoe is used to make walking more comfortable by not letting your foot bend too much while walking. You can use the shoe for comfort. YOU SHOULD SEEK MEDICAL ATTENTION IMMEDIATELY IF ANY OF THE FOLLOWING OCCURS: ? You experience a severe increase in pain in the affected area. ? You develop new numbness and tingling in or below the affected area. ? You develop a cold, pale foot that appears to have a problem with its blood supply. Encounter Status:Closed by ASYA VALDEZ on 08/30/17 PROGRESS Observed: 07/29/2017 Status: COMPLETED Source: [place] 10:55 AM [facility] REPOSITORY HNO ID: [id number] Author: Gamal Almendarez Service: (none) Author Type: Physician Type: Progress Notes Filed: 08/11/2017 11:49 PM Note Text: Patient presents with: Recheck SUBJECTIVE: Anaya Ybarra is a 41 year old year old lady here today for 6 month follow up appointment for review of medical conditions. Stopped BP med when was feeling dizzy like BP too low. At work can get high-->140/90. Has hardly needed to take med for migraine. Paxil effective for depression. Weight stayed down through holidays. PAST MEDICAL HISTORY Diagnosis Date - Bulging of cervical intervertebral disc without myelopathy - DDD (degenerative disc disease), cervical - Diverticulosis 02/17/2013 CT abd 12/2012 [facility] - Foraminal stenosis of cervical region 06/2014 MRI [facility] 06/2014 - GERD (gastroesophageal reflux disease) - Hypertension 12/29/2012 - Irritable bowel syndrome 09/03/2007 Colonoscopy 01/28 - - Migraine headache with aura 12/29/2014 worse with cervical spine issues - Obesity - Umbilical hernia 02/17/2013 - VT (ventricular tachycardia) ([facility]) 12/29/2012 Following during delivery- no further episodes. Dr. Rodriges, stress testing completed Current Outpatient Prescriptions: PARoxetine (PAXIL) 20 mg tablet Take 1.5 tablets by mouth once daily. diltiazem CD (CARDIZEM CD) 240 mg 24 hr capsule Take 1 capsule by mouth once daily. losartan (COZAAR) 50 mg tablet Take 1 tablet by mouth once daily. dicyclomine (BENTYL) 10 mg capsule Take 1 capsule by mouth before meals and at bedtime. (Patient taking differently: Take 10 mg by mouth twice daily as needed.) SUMAtriptan (IMITREX) 50 mg tablet TAKE 1 TABLET BY MOUTH. MAY REPEAT X1 AFTER 2HRS IF HEADACHE RETURNS No current facility-administered medications for this visit. OBJECTIVE: BP 130/82 Pulse 80 Resp 16 Wt 106.6 kg (235 lb) BMI 36.81 kg/m2 Patient is alert, oriented times 3, no apparent distress, affect is bright, reactive. Last 5 Encounter BP Readings: Date: BP: 07/29/2017 130/82 01/22/2017 112/78 11/16/2016 122/84 10/15/2016 150/100 10/10/2016 144/94 Last 5 Encounter Wt Readings: Date: Wt: 07/29/2017 106.6 kg (235 lb) 01/22/2017 105.7 kg (233 lb) 11/16/2016 113.4 kg (250 lb) 10/15/2016 113.4 kg (250 lb) 10/10/2016 112.9 kg (249 lb) Heart: Regular rate, rhythm, no murmurs, gallops, rubs. Lungs: Clear to auscultation, bilaterally, breathing non labored. Ext: No cyanosis, clubbing, or edema. Gets labs at [facility]. Will probably get December 2017 ASSESSMENT AND PLAN: Encounter Diagnosis ICD-10-CM 1. Essential hypertension I10 losartan (COZAAR) 50 mg tablet 2. Other depression F32.89 PARoxetine (PAXIL) 20 mg tablet some increased IBS with some SSRIs; doing okay at 30 mg Paxil daily 3. Irritable bowel syndrome with diarrhea K58.0 4. Class 2 obesity due to excess calories without serious comorbidity with body mass index (BMI) of 36.0 to 36.9 in adult E66.09 Z68.36 5. Migraine with aura and without status migrainosus, not intractable G43.109 Doing well with gradual weight loss--down compared to last spring. Goal weight >200; for summer to get down by 10 pounds. Be exercising more in summer months--walking, biking and swimming. Above issues addressed with patient. Patient involved in shared decision making for management of her medical issues. History and medications reviewed. Epic updated as needed Refills taken care of and meds adjusted as indicated after reviewed history, exam and labs. Health Maintenance reviewed. Updated record and/or ordered tests as recorded. Encouraged on efforts at healthy diet and regular exercise and adequate sleep. Needs to keep working on diet and exercise with lifestyle changes for effective weight loss. The majority of the visit was spent counseling and/or coordinating care for the patient. Dggl-dr-zsfz time was at least 25 minutes. Gamal Almendarez MD ALLERGIES ALLERGIES DATE TYPE / CODE NAME / CODE REACTION SEVERITY SOURCE Drug cephalexin/F006 Rash Unknown [facility] Allergy/646633183( 437638(RXNORM) [facility] SNOMED CT) Hospital Repository Drug meperidine/F006 caused vtach Unknown [place] 8 Allergy/676412768( 919324(RXNORM) [facility] SNOMED CT) Hospital Repository DRUG LISINOPRIL INTOLERANCE [place] 7 INGREDI/435025645( [facility] SNOMED CT) [place] Repository DRUG MEPERIDINE OTHER: SEE C [place] 2 INGREDI/475893591( [facility] SNOMED CT) [place] Repository DRUG CEPHALEXIN RASH [place] 2 INGREDI/063741665( [facility] SNOMED CT) [place] Repository DRUG LATEX ITCHING [place] 6 INGREDI/873927962( [facility] SNOMED CT) [place] Repository Miscellaneous OTHER ITCHING [place] 6 Allergy/124304364( [facility] SNOMED CT) [place] Repository ENCOUNTERS ENCOUNTERS ADMIT/DISCHARGE ACCOUNT ADMITTING ENCOUNTER LOCATION SOURCE NUMBER CLASS 07/14/2018 [id number] [facility] ing:PT Repository 06/27/2018 [id number] [facility] ing:[facility] Repository 06/02/2018/06/02/20 [id number] Ambulatory [address] ing:SDCRoom: Repository AC20 04/22/2018 [id number] [facility] ing:[facility] Repository 04/16/2018 [id number] [facility] ing:MTRAD Repository 04/16/2018/04/16/20 [id number] Ambulatory BMSBuilding:B [address] Repository 02/27/2018 [id number] Ambulatory [facility] ing:EMPH Repository 12/28/2017/01/15/20 [id number] Ambulatory [address] Repository 10/30/2017/11/01/19 [id number] Ambulatory [address] [place] Repository 10/09/2017/10/10/19 [id number] Ambulatory [address] ing:PT Repository 09/13/2017 [id number] Ambulatory Benjamin Benjamin [facility] ing:HPRAD Repository 09/03/2017 [id number] Ambulatory BMSBuilding:[facility] Repository 08/30/2017/08/31/19 [id number] Ambulatory [address] Repository 08/30/2017/09/03/19 [id number] Ambulatory [address] Repository 07/29/2017/07/29/19 [id number] Ambulatory [address] Repository PAYERS PAYERS ENCOUNTER GUARANTOR PAYER SUBSCRIBER SOURCE 07/14/2018 ANAYA [id number] Primary Insurance:[facility] ANAYA [facility] [id number] [address]Zkb: Number: Repository [id number] (HP) Date:5866-15-76TD [address] [address], [place] [address]FC: CHECK WEBSITE 07/14/2018 Secondary NOT GIVENUNK Benjamin Insurance:SELF PAY [facility] Number: Effective Repository Date:2018-05-30 06/27/2018 ANAYA GASPAR3 Primary Insurance:[facility] ANAYA [facility]ES[facility] [id number] [address]Ipz: Number: Repository [id number] (HP) Date:0173-96-91XF [address] [place], [place] [address]WP: CHECK WEBSITE 06/27/2018 Secondary NOT GIVENUNK [facility] Insurance:SELF PAY [facility] Number: Effective Repository Date:2018-06-27 06/02/2018 ANAYA GASPAR3 Primary Insurance:[facility] ANAYA [facility]ES[facility] [id number] [address]Bxj: Number: Repository [id number] (HP) Date:3855-93-94DT [address] [address], [place] [address]FO: CHECK WEBSITE 06/02/2018 Secondary NOT GIVENUNK Benjamin Insurance:SELF PAY [facility] Number: Effective Repository Date:2018-04-29 04/22/2018 ANAYA [id number] Primary Insurance:[facility] ANAYA Anisha LEEANNAB: Benjamin [facility] [id number] [place] [address]Mmf: Number: Repository [id number] (HP) Date:3583-19-65FC [address] [address], [place] [address]OR: CHECK WEBSITE 04/22/2018 Secondary NOT GIVENUNK [facility] Insurance:SELF PAY [facility] Number: Effective Repository Date:2018-04-18 04/16/2018 ANAYA [id number] Primary Insurance:[facility] ANAYA DURÁNB: Benjamin [facility] [id number] [place] [address]Mqj: Number: Repository [id number] (HP) Date:6629-91-37TK [address] [address], [place] [address]WZ: CHECK WEBSITE 04/16/2018 Secondary NOT GIVENUNK [facility] Insurance:SELF PAY [facility] Number: Effective Repository Date:2018-04-16 04/16/2018 ANAYA [id number] Primary Insurance:[facility] ANAYA DURÁNB: Benjamin [facility] [id number] [place] [address]Nqa: Number: Repository [id number] (HP) Date:8007-12-28TC [address] [address], [place] [address]ZA: CHECK WEBSITE 04/16/2018 Secondary NOT GIVENUNK [place] Insurance:SELF PAY [facility] Number: Effective Repository Date:2018-04-16 02/27/2018 Anaya Ybarra463 Primary NOT GIVENUNK [address] Insurance:SELF PAY [address] [place] [address]Xcd: Number: Effective Repository Date:2018-02-27 (HP) 10/09/2017 Anaya Ybarra463 Primary Insurance:[facility] Anaya Lancaster LeeannaB: Benjamin Ulule [facility] [id number] [place] [address]Tho: Number: Repository [id number] (HP) Date:[id number] [address], [place] [address]BB: CHECK WEBSITE 10/09/2017 Secondary NOT GIVENUNK Benjamin Insurance:SELF PAY [facility] Number: Effective Repository Date:2017-09-10 09/13/2017 Anaya Anisha [id number] Primary Insurance:[facility] Anaya Lancaster LeeannaB: [facility] [id number] [address]Sfp: Number: Repository [id number] (HP) Date:[id number] [address], [place] [address]KE: CHECK WEBSITE 09/13/2017 Secondary NOT GIVENUNK Benjamin Insurance:SELF PAY [facility] Number: Effective Repository Date:2017-09-13 09/03/2017 Anaya [id number] Primary Insurance:[facility] Anaya M Leonid: [facility] [id number] [place] [address]Zhb: Number: Repository [id number] (HP) Date:[id number] [address], [place] [address]FU: CHECK WEBSITE 09/03/2017 Secondary NOT GIVENUNK Emerson Insurance:SELF PAY [facility] Number: Effective Repository Date:2017-09-02
--- NOTE | 2018-10-24 08:28 | HP.PT.NRP ---
HP - Discharge Summary (1) - Patient Information VINCENT MCGEE was seen in my office for initial evaluation on 06/09/18. The following Plan of Care was established for this patient: Initial Frequency: 3x /Week Initial Duration: 4 Weeks - Anticipated Interventions Patient/Client Instruction: Educate patient on: Benefits of Fitness Program Therapeutic Exercise to Include: Strength training, Endurance training, Balance training, Coordination, Agility training, Body mechanics, Postural training, Flexibilty training, Gait and locomotor training, Passive ROM, Active ROM, Dynamic Lumbar Stabilization For the Purpose of:: To improve muscle performance and motor function TENS: Yes Cryotherapy (ice pack, ice massage): Yes Thermo therapy (hot pack): Yes Ultrasound (thermal/non thermal): Yes For the Purpose of:: To decrease pain This patient was last seen in our office . Pertinent comments regarding their Physical therapy will appear below: Patient has not attended physical therapy in over 30 days and is appropriate for discharge. Follow up with MD as appropriate. At this point I will be discontinuing this patient from physical therapy. I would be happy to see this patient again in the future if found appropriate by the physician. Thank you! HEAVENLY FalkT
== END 2018-07-21 19:00 | disposition home or self-care (01) ==
LOC: PT 11:00
PROVIDERS: Family Provider Internal Medicine; PCP Internal Medicine; Referring Provider Physician Assistant
DX: M21.41 Flat foot [pes planus] (acquired), right foot (principal); M21.42 Flat foot [pes planus] (acquired), left foot
CPT/HCPCS: 97014; 97110; 97161; 97164; 97760; 97763; G0283

== ENCOUNTER → 2018-08-15 08:59 | Outpatient (CLI) | payer OTHER, SELFPAY ==
--- NOTE | 2018-08-15 09:02 | RAD_ITS ---
STUDY: X-RAY - RIGHT KNEE REASON FOR EXAM: Female, 42 years old. Status post fall. TECHNIQUE: 4 view(s) of the knee. COMPARISON: None. FINDINGS: Normal visualized distal femur. Normal visualized proximal tibia and fibula. Normal proximal tibiofibular articulation. There is no demonstrated fracture. Normal medial femorotibial compartment. Normal lateral femorotibial compartment. Normal patellofemoral articulation. There is a soft tissue prominence in the suprapatellar region suggesting a small volume joint effusion. The soft tissue structures are unremarkable. RAD/Knee 4 or More Views IMPRESSION: 1. Small joint effusion. 2. No demonstrated acute osseous injury Electronically Signed: Gaurang Salazar MD at 9:17 EST Tel , Service support ,
--- NOTE | 2018-08-15 09:02 | RAD_ITS ---
STUDY: X-RAY - LEFT KNEE REASON FOR EXAM: Female, 42 years old. Medial left knee pain TECHNIQUE: 4 view(s) of the knee. COMPARISON: None. FINDINGS: Normal visualized distal femur. Normal visualized proximal tibia and fibula. Normal proximal tibiofibular articulation. Normal medial femorotibial compartment. Normal lateral femorotibial compartment. Normal patellofemoral articulation. There is no demonstrated joint effusion. The soft tissue structures are unremarkable. RAD/Knee 4 or More Views IMPRESSION: Normal x-ray examination of the knee. Electronically Signed: Manav Bean MD at 14:39 EST , Service support ,
== END ==
PROVIDERS: Family Provider Internal Medicine; PCP Internal Medicine; Referring Provider Orthopaedic Surgery; Visit Provider Orthopaedic Surgery
DX: M25.561 Pain in right knee (principal); M25.562 Pain in left knee
CPT/HCPCS: 73564

== ENCOUNTER → 2018-09-13 07:36 | Outpatient (CLI) | payer OTHER, SELFPAY ==
[2018-09-05 08:09] VITALS: BMI 38.5
--- NOTE | 2018-09-13 08:02 | BI_ITS ---
MAMMOGRAPHY - BILATERAL SCREENING 3-D SARA SYNTHESIS REASON FOR EXAM: Female, 42 years old. Bilateral Screening 3-D tomosynthesis PERTINENT HISTORY: No significant family history. TECHNIQUE: 2-D mammograms and 3-D Sara synthesis of the breast (s) were performed. CAD was performed. COMPARISON: January 08, 2017, December 06, 2014 FINDINGS: The breast composition is almost entirely fat. Scattered benign calcifications are stable. There are stable normal-appearing lymph nodes in both axillae. No dense spiculated masses or suspicious microcalcifications are identified. No architectural distortion is identified. There is no skin thickening or retraction. There has been no significant change since the prior study. BI/SCREENING MAMM (CAD), BILAT IMPRESSION: No mammographic signs of malignancy. Routine yearly mammograms recommended. ASSESSMENT CATEGORY: BIRADS Category 2: Benign. A letter regarding these results will be sent to the patient by the facility within 30 days. FOLLOW UP RECOMMENDATION: Yearly follow up mammogram recommended. (A) Approximately 10% of breast cancers are not detected by mammography. A normal mammogram should not delay biopsy of a clinically suspicious abnormality. Electronically Signed: Indra Lagunas MD at 17:45 EDT , Service support ,
== END ==
PROVIDERS: Family Provider Internal Medicine; PCP Internal Medicine; Referring Provider Internal Medicine; Visit Provider Internal Medicine
DX: Z12.31 Encounter for screening mammogram for malignant neoplasm of breast (principal)
CPT/HCPCS: 77063; 77067

== ENCOUNTER → 2019-04-09 07:17 | Outpatient (CLI) | payer OTHER, SELFPAY ==
[2019-03-25 07:57] VITALS: BMI 38.5
[2019-04-01 08:50] VITALS: BMI 38.5
--- NOTE | 2019-04-09 07:21 | MRI_ITS ---
STUDY: MRI LEFT KNEE REASON FOR EXAM: Female, 43 years old. Fall, knee pain TECHNIQUE: Standardized fat and water weighted pulse sequences were obtained in all 3 orthogonal planes. COMPARISON: None. FINDINGS: Normal medial meniscus. There is diffuse, greater than 50% thickness articular cartilage loss of the medial femorotibial compartment. Normal medial femoral condyle and tibial plateau. Associated medial capsulitis. Normal medial collateral ligamentous complex (MCL). Normal distal semimembranosus, gracilis and semitendinosus tendons. Normal lateral meniscus. Normal hyaline cartilage of the lateral femorotibial compartment. Normal lateral femoral condyle and tibial plateau. Normal proximal tibiofibular articulation. Normal lateral collateral (fibular) ligament. Normal popliteus tendon. Normal biceps femoris tendon. Normal anterior cruciate ligament (ACL). Normal posterior cruciate ligament (PCL). Normal congruent patellofemoral articulation. Normal hyaline cartilage of the patellofemoral compartment. Normal medial and lateral patellar retinaculum. Normal quadriceps tendon. Normal patellar tendon. Normal Hoffa's fat pad. Trace joint fluid. 2 x 9 cm Kennedy cyst. The soft tissues are unremarkable. The otherwise visualized osseous structures are unremarkable. MRI/Lower Ext Joint Only (Routine) IMPRESSION: 1. Moderate chondromalacia of the medial compartment with mild osteophyte formation and medial capsulitis. However, no meniscal tear. 2. Trace joint fluid with a 2 x 9 cm Kennedy cyst. Electronically Signed: Guillermo Chance MD at 9:06 EDT Tel , Service support ,
== END ==
PROVIDERS: Family Provider Internal Medicine; PCP Internal Medicine; Referring Provider Orthopaedic Surgery; Visit Provider Orthopaedic Surgery
DX: M25.562 Pain in left knee (principal)
CPT/HCPCS: 73721

== ENCOUNTER → 2019-06-08 14:18 | Outpatient (CLI) | payer OTHER, SELFPAY ==
[2019-06-08 10:48] VITALS: BMI 38.5
== END ==
PROVIDERS: Family Provider Internal Medicine; PCP Internal Medicine; Referring Provider Physician Assistant; Visit Provider Physician Assistant
DX: J02.9 Acute pharyngitis, unspecified (principal)
CPT/HCPCS: 87070

== ENCOUNTER 2019-12-27 20:40 | Emergency (ER) | payer OTHER, SELFPAY ==
[2019-11-04 10:15] VITALS: BMI 38.5
[2019-12-27 20:41] VITALS: BP 176/103; PULSE 102; RESP 18; TEMP 36.7; O2SAT 97; BMI 37.5
--- NOTE | 2019-12-27 20:51 | CT_ITS ---
STUDY: CT CERVICAL SPINE WITHOUT CONTRAST REASON FOR EXAM: Female, 44 years old. Possible trauma previous surgery RADIATION DOSAGE (If Supplied By Facility): CTDIvol = ( 23.84 ) mGy, DLP = ( 537.33 ) mGycm TECHNIQUE: High resolution transaxial imaging was performed without contrast material. Sagittal and coronal images were reconstructed. Individualized dose optimization techniques were used for this CT. COMPARISON: September 24, 2016 plain films, July 15, 2015 MR FINDINGS: Craniocervical junction and cervical spine are intact and aligned. Disc device is present at C6-C7. Mineralization is normal. Paraspinous soft tissues are normal. Spinal canal is patent at all levels. There are no high-grade foraminal stenoses. CT/Spine Cervical without Contras IMPRESSION: 1. No acute osseous injury. 2. Unremarkable age-appropriate cervical spine with C6-C7 disc prosthesis. Electronically Signed: Kade Garcia, at 21:36 EDT Tel , Service support ,
--- NOTE | 2019-12-27 20:51 | ED.VIS.GEN ---
History of Present Illness Chief Complaint: Other, Pain/Inj Detail of Chief Complaint: Neck pain Informant: Patient Onset: Today Current Severity: Moderate Maximum Severity: Moderate Narrative: Patient presents secondary to neck pain. 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 A patient pulled on her and attempts to get out of bed and patient felt a burning sensation in the left side of her neck. She did have neck surgery 3 years ago with a synthetic disc placed. She does report some paresthesias in her left hand but states that will happen from time to time. - Past Medical History (1) Hypertension Status: Chronic (2) Arthritis Status: Chronic Past Medical History - Allergies and Home Meds Allergies/Adverse Reactions: Allergies latex Allergy (Mild, Verified 12/27/19 20:44) unknow cephalexin [From Keflex] Allergy (Verified 12/27/19 20:44) Rash meperidine [From Demerol] Allergy (Verified 12/27/19 20:44) caused vtach Primary Care Physician: Anabella Almendarez MD [Primary Care Provider] - Prior records reviewed: Yes Smoking Status: Never smoker Review of Systems General: Denies: Chills, Fever Eyes: Denies: Visual changes - bilaterally ENT: Denies: Bilateral ear pain Cardiovascular: Denies: Chest pain Respiratory: Denies: Dyspnea Gastrointestinal: Denies: Abdominal pain, Nausea Musculoskeletal: Reports: Neck pain, Extremity Pain Skin: Denies: Rash Neurological: Reports: Headache Psych: Denies: Depression Hematologic: Denies: Easy bruising, Easy bleeding Allergy: Denies: Uticaria Physical Exam Vital Signs/Narrative: Vital Signs Temp Pulse Resp BP Pulse Ox 12/27/19 20:41 98.1 F 102 H 18 176/103 H 97 Inital Vital Signs reviewed: Yes General: Well nourished, Well developed Head: Normocephalic ENT: Moist mucous membranes Neck: Supple, - - No midline cervical tenderness. She does have reproducible tenderness in the left cervical paraspinal muscles. Cardiovascular: Regular rate, Regular rhythm Respiratory: No distress, CTA bilaterally Abdomen: Soft, Nontender Extremities: Tenderness - Mild tenderness to the top of the left shoulder. No bony tenderness over the humerus or forearm. Skin: Normal color Neurological: Alert, Oriented x3, Normal Strength, Normal Sensation Psychological: Normal affect Diagnostic/Tx/Re-eval Impressions Cervical Spine CT 12/27/19 20:51 IMPRESSION: 1. No acute osseous injury. 2. Unremarkable age-appropriate cervical spine with C6-C7 disc prosthesis. Electronically Signed: Kade Garcia, at 21:36 EDT Tel , Service support , 12/27/19 20:51 CT Cervical [Spine Cervical without Contras] [CT] Stat - Medical Decision Making Patient was given naproxen here. She does need to drive herself home. She has Flexeril as well as Aleve and ibuprofen that she can use at home. She will follow-up with [facility]. I will also give her Dr. Shah for follow-up as her partner had done the patient C-spine surgery previously. ED Disposition - Plan for ED Patient: Disposition: Home or Assisted Living Diagnosis: Cervical strain Instructions: ED Sprain Strain Neck Referrals: Narda Shah MD [STAFF PHYSICIAN] - As Needed Additional Instructions: Follow-up with [facility] in 2-3 days.
[2019-12-27] MEDS: Naproxen 500 MG Tablet PO (21:02)
[2019-12-27 22:08] VITALS: RESP 17
== END 2019-12-27 22:09 | disposition home or self-care (01) ==
PROVIDERS: Emergency Provider Emergency Medicine; PCP Internal Medicine
DX: S16.1XXA Strain of muscle, fascia and tendon at neck level, initial encounter (principal); R20.2 Paresthesia of skin; X50.9XXA Other and unspecified overexertion or strenuous movements or postures, initial encounter; Y93.F2 Activity, caregiving, lifting; Y92.239 Unspecified place in hospital as the place of occurrence of the external cause; Y99.9 Unspecified external cause status; I10 Essential (primary) hypertension; M19.90 Unspecified osteoarthritis, unspecified site; Z79.899 Other long term (current) drug therapy
CPT/HCPCS: 72125; 99284

== ENCOUNTER → 2020-01-19 09:35 | Outpatient (CLI) | payer OTHER, SELFPAY ==
[2020-01-19 09:26] VITALS: BMI 37.5
--- NOTE | 2020-01-19 09:35 | RAD_ITS ---
STUDY: X-RAY - CERVICAL SPINE REASON FOR EXAM: Female, 44 years old. Pain TECHNIQUE: 4 view(s) of the cervical spine were obtained. COMPARISON: CT dated 12/27/19 FINDINGS: There are stable postoperative changes with a C6/C7 disc prosthesis in place. There is no evidence of fracture or dislocation in the cervical spine. There is stable mild degenerative changes. There is no evidence of subluxation on flexion or extension. The prevertebral soft tissues are unremarkable. There is no radiodense foreign body. RAD/Cerv Spine 4 or 5 Views IMPRESSION: Stable postoperative changes at C6/C7 with a disc prosthesis in place. No fracture or dislocation in the cervical spine. Stable mild degenerative change. No evidence of instability on flexion or extension. Electronically Signed: Kwadwo Baker, at 18:10 EDT Tel , Service support ,
== END ==
PROVIDERS: PCP Internal Medicine; Referring Provider Orthopaedic Surgery; Visit Provider Orthopaedic Surgery
DX: S16.1XXA Strain of muscle, fascia and tendon at neck level, initial encounter (principal); X58.XXXA Exposure to other specified factors, initial encounter; Y93.9 Activity, unspecified; Y92.9 Unspecified place or not applicable; Y99.9 Unspecified external cause status
CPT/HCPCS: 72050

== ENCOUNTER 2020-02-16 08:00 | Outpatient (RCR) | payer OTHER, SELFPAY ==
[2020-01-25 09:01] VITALS: BMI 37.5
--- NOTE | 2020-01-28 13:52 | HP.PTEVAL ---
Patient's Visit Information VINCENT MCGEE is a 44 year old F referred to Physical Therapy by Dr. Narda Rizo MD with a diagnosis of NECK PAIN. H/O C67 DISC ARTHROPLASTY. Date of Evaluation: 01/28/20 Physical Therapist: Carol Mejia, PT, Cert MDT - Visit Plan Frequency: 2x /Week Duration: 2 Months Plan: CERVICAL STM. E-STIM WITH MH OR CP. AQUATIC THERAPY FOR PAIN RELIEF, BALANCE TRAINING, POSTURE CORRECTION/STRENGTHENING, INSTRUCTION IN APPROPRIATE BODY MECHANICS AND ACTIVITY MODIFICATIONS. АЛЕКСАНДР UE ROM, STRETCHING AND STRENGTHENING. HEP INSTRUCTION. 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 HAS BEEN OFF WORK SINCE DATE OF INJURY - GOING BACK TO WORK TOMORROW SCREENING. Disability: NO. Present symptoms: HEADACHE, PAIN IN THE BACK OF HEAD. LEFT NECK PAIN. BOTH HANDS WERE NUMB AND WOKE HER UP LAST NIGHT. THIS IS THE FIRST TIME THIS HAS HAPPENED. NO NUMBNESS OR TINGLING RIGHT NOW. CLICKING IN THE BACK OF NECK WHEN I WALK BUT NOT ALL THE TIME. Present since: DECEMBER 27 2019. Pain Scale: Worst - 8/10 Least - 5/10. Currently: 12/01. Commenced as a result of: PATIENT STATES: A PATIENT GRABBED MY ARM AND YANKED IT TO GET HELP UP. INSTANTLY FELT A POP IN LEFT SIDE OF NECK AND IT STARTED SPASMING. WENT TO THE ED AT THAT TIME. PATIENT WAS 325 LBS AND YANKED HARD. Symptoms at onset: POP AND SPASMS LEFT NECK. Worse: TRYING TO DO ANYTHING, WASHING HAIR, DOING LAUNDRY, DOING DISHES, ANYTHING INVOLVING LIFTING, RAISING ARMS OVER HEAD. Better: SLEEPING, IBUPROFEN. Disturbed sleep: YES. Previous history/Previous treatment: 2017 C67 HNP SX. FROM THEN UNTIL NOW IT WAS FINE. PT AFTER SURGERY. ONE OR TWO VISITS TO [facility] FOR HEADACHES AFTER SX. [facility] BEFORE SURGERY. SHE'S BEFORE SX. This episode: STEROID. FLEXERIL. CONSULT WITH DR. RIZO - DR. RIZO ORDERED PT. PATIENT REPORTS SHE HAS ONLY ICED IT, HEATED IT, USED MUSCLE RELAXER AND IBUPROFEN SINCE INIJURY. DR. RIZO SAID NECK X-RAY LOOKS GOOD. FOLLOW UP PENDING IN 6 WEEKS TO CONSIDER MRI IF STILL IN PAIN. STATES DR. RIZO THINKS IT IS ALL MUSCULAR. Dizziness: YES. Tinnitis: NO. Nausea: NO. Shortness of Breath: NO. Difficulty Swollowing: NO. Gait: SOMETIMES I FEEL LIKE I AM OFF BALANCE. OTHER THAN THAT I THINK IT IS FINE. Accidents: NO. Unexplained weight loss: NO. Imaging: CAT SCAN December AT [facility] - NORMAL PER PATIENT REPORT. PMH/Recent major surgery: RIGHT KNEE SCOPE 2018 AFTER FALL TEARING MENISCUS. HTN. - Objective Sitting Posture/Standing Posture: POOR. FH. RS'S. Active Correction of posture: NE. Other Observations: INDEP GAIT INTO PT WITHOUT ANY ASSITIVE DEVICES OR LOB. 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 АЛЕКСАНДР UE STRENGTH GROSSLY 5/5 WITH MMT'ING. Sensory deficit: АЛЕКСАНДР UE LIGHT TOUCH SENSATION INTACT AND SYMMETRICAL. ROM deficit: АЛЕКСАНДР UE AROM WFL BUT ELEVATING ARMS INCREASES C/O NECK PAIN. Reflexes: NT. Dural Signs: NEGATIVE АЛЕКСАНДР UE'S. Cervical Mvmt Loss: Flex: NIL. Pro: NIL. Ext: MOD. Ret: MOD. RSB: MOD. LSB: MOD. R Rot: MIN. L Rot: MIN. Postural strength: POOR. Palpation: VISIBLE BULGING IN LEFT UPPER TRAP/LATERAL NECK REGION. INCREASED MUSCLE TONE WITH MULTIPLE TRIGGER POINTS PALPABLE IN АЛЕКСАНДР [place] REGION. LEFT OCCIPUT TENDERNESS. TREATMENT: NEUROMUSCULAR REEDUCATION - RETRAINING OF MVMT AND POSTURE FOR SITTING, LYING AND STANDING ACTIVITIES. - Goals Goal 1:: DECREASE C/O NECK AND HEAD PAIN. Goal Time Frame: 6-8 Weeks Goal 2:: IMPROVE PERSONAL CARE, LIFTING, READING, SLEEP, DRIVING, WORK AND RECREATIONAL FUNCTION Goal Time Frame: 6-8 Weeks Goal 3:: INSTRUCT IN PROPHYLAXIS Goal Time Frame: 6-8 Weeks - Anticipated Interventions Patient/Client Instruction: Educate patient on: Condition, Plan of Care, Risk Factors, Benefits of Fitness Program For the Purpose of:: To improve self management Therapeutic Exercise to Include: Strength training, Body mechanics, Postural training, Flexibilty training, Neuromotor development, In an aquatic setting, Active ROM, Scapular Strength/Stabilization For the Purpose of:: To decrease pain, To increase ROM, To improve muscle performance and motor function, To increase tolerance to activity/condition/position, To improve ability of physical actions for home/community/work/leisure Manual Therapy Techniques to Include: Soft tissue mobilization For the Purpose of:: To decrease pain, To improve nutrient delivery to tissue TENS: Yes IF ES: Yes Cryotherapy (ice pack, ice massage): Yes Thermo therapy (hot pack): Yes Thank you for the opportunity to evaluate your patient. For Medicare and Medicare HMO plans, please review the plan of care and approve it. It will need to be FAXED BACK to us at [phone] for Medicare purposes. For Medicare only, by signing this I certify the plan of care. Please let me know if there are questions or concerns regarding this plan of care. Physician Signature: Date:
--- NOTE | 2020-04-25 18:06 | HP.PT.NRP ---
VINCENT MCGEE was seen in my office for initial evaluation on 01/28/20. The following Plan of Care was established for this patient: Initial Frequency: 2x /Week Initial Duration: 2 Months Patient/Client Instruction: Educate patient on: Condition, Plan of Care, Risk Factors, Benefits of Fitness Program For the Purpose of:: To improve self management Therapeutic Exercise to Include: Strength training, Body mechanics, Postural training, Flexibilty training, Neuromotor development, In an aquatic setting, Active ROM, Scapular Strength/Stabilization For the Purpose of:: To decrease pain, To increase ROM, To improve muscle performance and motor function, To increase tolerance to activity/condition/position, To improve ability of physical actions for home/community/work/leisure Manual Therapy Techniques to Include: Soft tissue mobilization For the Purpose of:: To decrease pain, To improve nutrient delivery to tissue TENS: Yes IF ES: Yes Cryotherapy (ice pack, ice massage): Yes Thermo therapy (hot pack): Yes This patient was last seen in our office 02/16/20. Pertinent comments regarding their Physical therapy will appear below: This patient has not returned to Physical Therapy and is appropriate to return to MD for further follow-up as needed. At this point I will be discontinuing this patient from physical therapy. I would be happy to see this patient again in the future if found appropriate by the physician. Thank you! Carol Mejia PT, Cert MDT
== END 2020-02-16 19:00 | disposition home or self-care (01) ==
LOC: PT 08:00
PROVIDERS: PCP Internal Medicine; Referring Provider Orthopaedic Surgery; Visit Provider Orthopaedic Surgery
DX: M54.2 Cervicalgia (principal)
CPT/HCPCS: 97110; 97112; 97140; 97162

== ENCOUNTER → 2020-02-22 10:22 | Outpatient (CLI) | payer OTHER, SELFPAY ==
[2020-01-25 09:01] VITALS: BMI 37.5
[2020-02-15 12:05] VITALS: BMI 37.5
[2020-02-22 11:14] LABS: Absolute Lymphocyte Count 2.02 X10^3/uL (0.83-4.51); Absolute Neutrophil Count 4.9 X10^3/uL (2.0-7.7); Basophil# 0.04 X10^3/uL; Basophil% 0.5 % (0-1); Eosinophil# 0.29 X10^3/uL; Eosinophils% 3.8 % (0-5); Hematocrit 38.6 % (37-47); Hemoglobin 12.3 g/dL (12.0-15.0); Lymphocyte # 2.02 X10^3/ul (4.0); Lymphocyte % 26.3 % (19-41); Mean Corp Hgb Conc 31.9 g/dL (32-36); Mean Corpuscular Hgb 28.9 pg (27.0-32.0); Mean Corpuscular Volume 90.6 fL (81-99); Mean Platelet Vol. 9.9 fl (6.2-12.0); Monocyte# 0.41 X10^3/uL; Monocyte% 5.3 % (0-10); NRBC Flagged by Analyzer 0 % (0-5); Neutrophil % 63.8 % (47-70); Platelet Count 419 K/mm3 (150-450); RBC Distribution Width CV 13.2 % (11.6-14.6); RBC Distribution Width SD 43.4 fl (35.1-43.9); Red Blood Count 4.26 M/mm3 (4.2-5.4); White Blood Count 7.7 K/mm3 (4.4-11.0)
[2020-02-22 11:51] LABS: Anion Gap 5 (5-15); BUN 8 mg/dL (7-18); BUN/Creat Ratio 11.7 RATIO (10-20); Calcium,Total 8.3 mg/dL (8.5-10.1); Chloride 108 mmol/L (98-107); Cholesterol 159 mg/dL (200); Creatinine, Serum 0.68 mg/dL (0.55-1.02); EST Glomerular Filtration Rate 98 mL/min (>60); Est Glom Filt Rate - Afr Amer 119 mL/min (>60); Glucose 100 mg/dL (74-106); High Density Lipoprotein 54 mg/dL; Potassium 3.9 mmol/L (3.5-5.1); Sodium Level 138 mmol/L (136-145); Thyroid Stim Hormone (TSH) 1.88 uIU/mL (0.358-3.74); Triglycerides 86 mg/dL; Very Low Density Lipoprotein 17 mg/dL (5-40)
[2020-02-22 12:11] LABS: HIV - WCH Non-Reactive (Nonreactive); Vitamin D,25 Hydroxy 32.1 ng/mL
[2020-02-23 04:07] LABS: Hepatitis C Ab <0.1 s/co ratio (0.0-0.9)
== END ==
PROVIDERS: PCP Internal Medicine; Referring Provider Clinical Nurse Specialist; Visit Provider Clinical Nurse Specialist
DX: Z00.00 Encounter for general adult medical examination without abnormal findings (principal); R53.83 Other fatigue; I10 Essential (primary) hypertension; G43.109 Migraine with aura, not intractable, without status migrainosus; Z79.899 Other long term (current) drug therapy; Z13.220 Encounter for screening for lipoid disorders; Z11.4 Encounter for screening for human immunodeficiency virus [HIV]; Z11.59 Encounter for screening for other viral diseases; R63.5 Abnormal weight gain
CPT/HCPCS: 36415; 80048; 80061; 82306; 84443; 85025; 86703; 86803; 86804

== ENCOUNTER → 2020-05-13 07:43 | Outpatient (CLI) | payer OTHER, SELFPAY ==
[2019-10-28 10:03] VITALS: BMI 38.5
[2020-03-01 12:43] VITALS: BMI 37.5
--- NOTE | 2020-05-13 07:45 | BI_ITS ---
MAMMOGRAPHY - BILATERAL SCREENING REASON FOR EXAM: Female, 44 years old. Routine annual screening examination. PERTINENT HISTORY: Aunt with breast cancer. TECHNIQUE: Digital bilateral breast sara (3D mammographic acquisition) in the CC and MLO projections. 2-D mediolateral oblique (MLO) and craniocaudad (CC) views of both breasts were obtained. CAD: Full Field Digital Mammography with Computer Added Detection was performed. COMPARISON: Comparison is made with prior study dated 09/13/2018 and 01/08/2017. FINDINGS: Breast Composition: There are scattered areas of fibroglandular density. There are no dominant masses or suspicious calcifications. Stable benign-appearing bilateral axillary lymph nodes. No other significant abnormalities are identified. There has been no significant change since the prior study. BI/SCREEN MAMM (CAD) W/SARA BILAT IMPRESSION: Stable bilateral screening mammogram. Yearly follow-up mammogram recommended. (A) ASSESSMENT CATEGORY: BIRADS Category 2: Benign. A letter regarding these results will be sent to the patient by the facility within 30 days. Approximately 10% of breast cancers are not detected by mammography. A normal mammogram should not delay biopsy of a clinically suspicious abnormality. [id number] Electronically Signed: Andreas Spicer, at 9:06 EST , Service support ,
== END ==
PROVIDERS: PCP Internal Medicine; Referring Provider Clinical Nurse Specialist; Visit Provider Clinical Nurse Specialist
DX: Z12.31 Encounter for screening mammogram for malignant neoplasm of breast (principal); Z80.3 Family history of malignant neoplasm of breast
CPT/HCPCS: 77063; 77067

== ENCOUNTER 2020-08-12 08:40 | Outpatient (RCR) | payer OTHER, SELFPAY | END 2020-08-21 23:59 | LOC: EMPH 08:40 | PROVIDERS: PCP Internal Medicine; Referring Provider Family Medicine Geriatric Medicine; Visit Provider Family Medicine Geriatric Medicine | DX: Z03.818 Encounter for observation for suspected exposure to other biological agents ruled out (principal) | CPT/HCPCS: 87426 ==

== ENCOUNTER 2020-09-08 14:52 | Outpatient (RCR) | payer OTHER, SELFPAY | END 2020-09-21 23:59 | LOC: EMPH 14:52 | PROVIDERS: PCP Internal Medicine; Referring Provider Family Medicine Geriatric Medicine; Visit Provider Family Medicine Geriatric Medicine | DX: Z03.818 Encounter for observation for suspected exposure to other biological agents ruled out (principal) | CPT/HCPCS: 87426 ==

== ENCOUNTER 2021-04-12 09:06 | Outpatient (CLI) | payer OTHER, SELFPAY ==
[2021-04-12 09:13] VITALS: BP 143/81; PULSE 71; RESP 16; TEMP 36.9; O2SAT 98; BMI 39.1
[2021-04-12] MEDS: 0.9% Saline Lock 10 ML Syringe IV (09:24)
[2021-04-12 09:55] VITALS: BP 136/83; PULSE 78; RESP 16; TEMP 36.4; O2SAT 98
[2021-04-12 10:55] VITALS: BP 130/68; PULSE 79; RESP 16; TEMP 36.6; O2SAT 98
== END 2021-04-12 10:55 | disposition home or self-care (01) ==
LOC: MS3OUT 09:06 → MS3 09:07
PROVIDERS: PCP Internal Medicine; Referring Provider Nurse Practitioner Adult Health; Visit Provider Nurse Practitioner Adult Health
DX: Z23 Encounter for immunization (principal); U07.1 COVID-19
CPT/HCPCS: J7050; M0243; A4216; Q0244

== ENCOUNTER → 2021-05-03 13:40 | Outpatient (CLI) | payer OTHER, SELFPAY ==
--- NOTE | 2021-05-03 14:06 | US_ITS ---
STUDY: ABDOMINAL ULTRASOUND - RIGHT UPPER QUADRANT REASON FOR VISIT: Female, 45 years old RUQ PAIN TECHNIQUE: Ultrasound evaluation of the right upper quadrant was performed with real-time and static parson-scale imaging. TECHNICAL QUALITY: Adequate. COMPARISON: None. FINDINGS: Liver: The liver measures 16.5 cm. There is increased echogenicity consistent with fatty infiltration. The bile ducts are within normal limits. There is hepatic color flow. The direction of portal flow is hepatopetal. There is no demonstrated mass lesion. Gallbladder: Normal distended gallbladder. The gallbladder wall measures 1.5 mm. There is a negative sonographic Handley''s sign. There is no pericholecystic fluid. There are no gallstones. Common Bile Duct (C.B.D.): The common bile duct measures 4.5 mm. Pancreas: Limited visualization of the pancreas due to overlying bowel gas. Right Kidney: Normal size of the right kidney. The right kidney measures 12.1 cm x 5.2 cm x 5.2 cm. Normal renal cortex. The right cortex measures 1.2 cm. There is no demonstrated renal mass or cyst. There is no right hydronephrosis. US/Abdomen Limited IMPRESSION: Fatty infiltration of the liver. Limited visualization of the pancreas due to overlying bowel gas. Electronically Signed: Andreas Spicer MD at 15:31 EST , Service support ,
[2021-05-03 14:20] LABS: Absolute Lymphocyte Count 2.77 X10^3/uL (0.83-4.51); Absolute Neutrophil Count 4.9 X10^3/uL (2.0-7.7); Basophil# 0.04 X10^3/uL; Basophil% 0.5 % (0-1); Eosinophil# 0.31 X10^3/uL; Eosinophils% 3.7 % (0-5); Hematocrit 36.9 % (37-47); Lymphocyte # 2.77 X10^3/ul (0.83-4.51); Lymphocyte % 32.7 % (19-41); Mean Corp Hgb Conc 32.5 g/dL (32-36); Mean Corpuscular Hgb 29.1 pg (27.0-32.0); Mean Corpuscular Volume 89.6 fL (81-99); Mean Platelet Vol. 9.5 fl (6.2-12.0); Monocyte# 0.43 X10^3/uL; Monocyte% 5.1 % (0-10); NRBC Flagged by Analyzer 0 % (0-5); Neutrophil # 4.91 X10^3/uL (2.7-7.7); Neutrophil % 57.9 % (47-70); Platelet Count 395 K/mm3 (150-450); RBC Distribution Width CV 13.1 % (11.6-14.6); RBC Distribution Width SD 42.7 fl (35.1-43.9); Red Blood Count 4.12 M/mm3 (4.2-5.4); White Blood Count 8.5 K/mm3 (4.4-11.0)
[2021-05-03 14:39] LABS: ALB/GLOB Ratio 0.8 RATIO (0.9-2.4); AST(SGOT) 16 U/L (15-37); Alanine Aminotransfer ALT/SGPT 23 U/L (13-56); Albumin, Serum 3.5 g/dL (3.2-5.0); Alkaline Phosphatase 114 U/L (45-117); Amylase 39 U/L (25-115); Anion Gap 7 (5-15); BUN 9 mg/dL (7-18); BUN/Creat Ratio 11.2 RATIO (10-20); Calcium,Total 8.8 mg/dL (8.5-10.1); Chloride 106 mmol/L (98-107); Creatinine, Serum 0.81 mg/dL (0.55-1.02); EST Glomerular Filtration Rate 81 mL/min (>60); Est Glom Filt Rate - Afr Amer 98 mL/min (>60); Globulin 4.4 g/dL (2.2-4.2); Glucose 94 mg/dL (74-106); Lipase 95 U/L (73-393); Potassium 3.9 mmol/L (3.5-5.1); Protein, Total 7.9 g/dL (6.4-8.2); Sodium Level 139 mmol/L (136-145)
== END ==
PROVIDERS: PCP Internal Medicine; Visit Provider Nurse Practitioner
DX: R10.11 Right upper quadrant pain (principal)
CPT/HCPCS: 36415; 76705; 80053; 82150; 83690; 85025

== ENCOUNTER → 2021-06-15 11:55 | Outpatient (CLI) | payer OTHER, SELFPAY ==
--- NOTE | 2021-06-15 11:56 | BI_ITS ---
MAMMOGRAPHY - BILATERAL SCREENING REASON FOR EXAM: Female, 45 years old. Routine annual screening examination. PERTINENT HISTORY: Aunt with breast cancer. TECHNIQUE: Digital bilateral breast sara (3D mammographic acquisition) in the CC and MLO projections. 2-D mediolateral oblique (MLO) and craniocaudad (CC) views of both breasts were obtained. CAD: Full Field Digital Mammography with Computer Added Detection was performed. COMPARISON: Comparison is made with prior study dated 05/13/2020 and 09/13/2018. FINDINGS: Breast Composition: There are scattered areas of fibroglandular density. There are no dominant masses or suspicious calcifications. Stable benign-appearing bilateral axillary lymph nodes. No other significant abnormalities are identified. There has been no significant change since the prior study. BI/SCRN MAMM (CAD)W/SARA BILAT IMPRESSION: Stable bilateral screening mammogram. Yearly follow-up mammogram recommended. (A) ASSESSMENT CATEGORY: BIRADS Category 2: Benign. A letter regarding these results will be sent to the patient by the facility within 30 days. Approximately 10% of breast cancers are not detected by mammography. A normal mammogram should not delay biopsy of a clinically suspicious abnormality. [id number] Electronically Signed: Andreas Spicer MD at 12:25 EST , Service support ,
== END ==
PROVIDERS: PCP Internal Medicine; Referring Provider Clinical Nurse Specialist; Visit Provider Clinical Nurse Specialist
DX: Z12.31 Encounter for screening mammogram for malignant neoplasm of breast (principal); Z80.3 Family history of malignant neoplasm of breast
CPT/HCPCS: 77063; 77067

== ENCOUNTER → 2022-01-03 | Outpatient (CLI) | payer OTHER, SELFPAY ==
--- NOTE | 2022-01-03 15:34 | NEURO ---
NCS and/or EMG Patient Report Ordering Doctor: Miguel Blankenship DATE OF SERVICE: 01/03/22 Anaya Ybarra presents for electrodiagnostic testing of the upper limbs. She reports numbness and tingling in both hands. Electrodiagnostic findings: Right median motor nerve demonstrates normal distal latency, amplitude and conduction velocity. Left median motor nerve demonstrates prolonged distal latency with normal amplitude and borderline reduced conduction velocity. Ulnar motor response within normal limits bilaterally. Normal median and ulnar F waves. Median sensory latency is prolonged at the wrist bilaterally. Normal ulnar and radial sensory responses. On needle EMG, all muscles tested in the upper limbs showed no evidence of denervation with normal motor unit action potentials. Electrodiagnostic impression: This is an abnormal study in the upper limbs. 1. Electrodiagnostic findings demonstrate bilateral median mononeuropathy. This is consistent with a mild right carpal tunnel syndrome and a moderate left carpal tunnel syndrome. 2. No electrodiagnostic evidence noted for cervical radiculopathy.
== END | disposition home or self-care (01) ==
LOC: PSN 11:34
PROVIDERS: PCP Internal Medicine; Referring Provider Orthopaedic Surgery; Visit Provider Orthopaedic Surgery
DX: R20.0 Anesthesia of skin (principal); R20.2 Paresthesia of skin
CPT/HCPCS: 95886; 95912

== ENCOUNTER 2022-01-16 06:11 | Day surgery (SDC) | payer OTHER, SELFPAY ==
[2022-01-16] VITALS (7 sets, daily range): BP systolic 123–140; BP diastolic 72–81; PULSE 71–86; RESP 14–16; TEMP 36.5–36.8; O2SAT 94–98; BMI 41.5
[2022-01-16] MEDS: Lactated Ringers 1,000 ML 15 ML IV (06:30)
[2022-01-16 06:51] LABS: Internal QC Validated? YES +Cl - CLEAR BKGD; Pregnancy, Urine Negative Negative
--- NOTE | 2022-01-16 07:07 | PCM.HP.BLA ---
History and Physical Date of Admission: 01/16/22 [facility] [address] [place] [address] OFFICE VISIT Date of Service:? 01/08/22 MR#: [id number] Acct: [id number] Name:VINCENT TERRAZAS Rep #: [id number] : 1975 ? ? Provider: Dr. Miguel Blankenship, DO Age/Sex:? 46/F ? ? Location: [facility] [place] Status: Signed Intake Vital Signs ? 04/12/2109:13 Height 5 ft 7 in Intake Visit Reasons:?wrist pain Allergies latex Allergy (Mild, Verified 11/03/21 08:30) unknowcephalexin [From Keflex] Allergy (Verified 11/03/21 08:30) Rashmeperidine [From Demerol] Allergy (Verified 11/03/21 08:30) caused vtach PFSH Medical History? Arthritis herniated disk Hypertension Knee pain mobi-c Surgical History? H/O neck surgery H/O right knee surgery Social History? Smoking Status:? Never smoker alcohol intake:? never HPI wrist pain Details: Parts of this documentation were recorded by a scribe, this documentation accurately reflects the service provided and the decisions made by me, Dr. Miguel Blankenship, DO 01/08/22 0754. VINCENT MCGEE is a 46 year old F here today for? F/U after having EMG completed.? He symptoms are worse in the right wrist. she continues to have numbness tingling and pain into the digits Ortho Exam General General: Yes no acute distress Neurologic: Yes alert and Yes oriented x3 Psychologic: Yes reasonable and appropriate Right Wrist/Hand Skin/Wound: No Ecchymosis and Yes capillary refill normal Right Wrist: Yes Durken's Test and Phalen's; No Tinel's WRIST: direct compression at the wrist cause numbness of 3rd and 4th fingers Left Wrist/Hand Skin/Wound: No Ecchymosis Left Wrist: No Durken's Test, No Tinel's and No Phalen's Right Elbow Test: No Tinel's ELBOW: direct compression at the elbow cause numbness of middle and ring finger Left Elbow Test: No Tinel's ELBOW: negative direct compression at the elbow Supplemental Info 01/03/2022 EMG nerve conduction velocity bilateral upper extremity:1.? Electrodiagnostic findings demonstrate bilateral median mononeuropathy.? This is consistent with a mild right carpal tunnel syndrome and a moderate left carpal tunnel syndrome. 2.? No electrodiagnostic evidence noted for cervical radiculopathy. Coding Level of Care Code Off vis,est,level 3 Assessment and Plan Plan Details Additional Comments: Educated that she does have BL carpal tunnel syndrome, EMG shows that the left is worse than right. Treatment option is do nothing or night splinting or steroid injection or carpal tunnel release. She could only have one release done at a time. She would be off work for about 3 weeks or she could return sooner with restrictions. Reviewed the pre-operative plans with the patient. Risks and benefits of the procedure were fully explained, including but not limited to infection, neurovascular injury, continued pain symptoms, incisional hypersensitivity and pillar pain,? stiffness, need for further surgery, re-injury, DVT, PE, general risks of anesthesia, and loss of limb or life. The patient understands all the risks and does wish to proceed with written consent.? She wishes to proceed with right carpal tunnel release and left carpal tunnel injection. Follow up post op or sooner if pain, swelling, numbness or associated symptoms, or concerns develop.? All questions answered. Patient in agreement of plan. 01/08/22 1518 <Electronically signed by iMguel Blankenship DO> Date Miguel Websterignbrittani Signature: Date (if applicable) I have re-examined the patient. There are no clinical changes since date of exam ?
[2022-01-16] MEDS: Clindamycin 900 MG/50 ML BAG 75 MG IV (07:30)
[2022-01-16] MEDS: Lidocaine 1% /Epi 1:100 (20ml) 20 ML Vial (07:52)
[2022-01-16] MEDS: MethylPREDNISolone Acetate 40 MG/ML Vial IM (07:53)
[2022-01-16] MEDS: Bupivacaine 0.25% 30 ML Vial (07:53)
--- NOTE | 2022-01-16 08:12 | DCINST_ITS ---
Discharge Instructions Activity Additional Activity Instructions:: Ice and elevate operative extremity next 72 hours. Keep dressing on clean and dry for 48 hours then may remove and allow warm soapy water to rinse over incision but do not submerge until sutures are out. Then apply bandaid over incision and change daily. encourage finger range of motion. Not lift more than 1/2 pound. Minimize narcotic use only as needed and directed, may use OTC NSAID and Tylenol to supplement/substitute for pain control. Follow Up Care Please Follow Up With: Miguel Blankenship DO When: 2 weeks Test Results: Test results from this visit will be discussed in further detail at your follow- up appointment, if applicable. Discharge Plan Admission Attending Provider: Miguel Blaneknship Primary Care Provider: Anabella Almendarez Discharge Orders/Prescriptions Prescriptions: New oxycodone 5 mg tablet 5 mg PO Q4H PRN (Reason: pain) 5 Days Qty: 15 0RF No Action bupropion HCl [Wellbutrin SR] 100 mg tablet sustained-release 12 hr 100 mg PO DAILY diltiazem HCl 180 MG capsule 240 mg PO DAILY Label Comments: HEART MEDICATION paroxetine HCl 20 mg tablet 20 mg PO DAILY Label Comments: ANXIETY/DEPRESSION losartan 25 mg tablet 50 mg PO DAILY Referrals / Follow Up: Anabella Almendarez MD [Primary Care Provider] - Disposition Disposition (needs filled in before D/C Order can be placed): Home, Self Care
--- NOTE | 2022-01-16 10:29 | OP.PCM_ITS ---
Operative Report Date of Procedure: 01/16/22 Preoperative diagnosis; bilateral carpal tunnel syndrome Postoperative diagnosis; same Procedure: Right open carpal tunnel release left carpal tunnel injection Anesthesia: Local with MAC Tourniquet time; 10 minutes 250 mm Hg Complications: None Indication for procedure; This is a 46-year-old female with long-standing symptoms consistent with carpal tunnel syndrome the patient did have electrodiagnostic evidence of this and has failed conservative treatment. Risks benefits and alternatives were reviewed including risks of bleeding infection nerve artery tissue damage need for further surgery and continued pain and symptoms, hypersensitivity to scar and Pillar pain. Procedure; The patient was met in the preoperative holding area the operative extremity was identified by both patient and physician and was marked the patient was met by anesthesia and brought back to the operating room and transferred to the operating table in the supine position. Anesthesia was started. A well-padded tourniquet was placed on the operative upper extremity. The patient was prepped and draped in the usual sterile fashion. A timeout was called to ensure the proper patient procedure and extremity were being contemplated. 0.5 percent lidocaine with epinephrine was injected into the incis ional area. An Esmarch was used to exsanguinate the extremity. The tourniquet was inflated to 250 mmHg. A midline incision was made with a 15 blade scalpel between the thenar and hypothenar eminence. This was carried down through the skin and subcutaneous tissue. Ulises retractors were then used, a deep blade scalpel was used to make a deep incision in the palmar aponeurosis. The ulises retractors were then placed deep to this and the transverse carpal ligament was identified a perforation was made with a scalpel and a Littler scissors were used to complete the release of the transverse carpal ligament distally under direct visualization with the tips facing ulnarly until the perivascular fat was reached. Then turning our attention proximally using a tension slide technique the proximal extent of the transverse carpal ligament was released . There was noted to be hourglass configuration to the median nerve and hypertrophy of the transverse carpal ligament without other findings. The wound was thoroughly irrigated and was closed with 4-0 nylon vertical mattress stitches. Dressing was applied in the form of xeroform 4 x 4, web roll and an karen wrap. Tourniquet was let down. The left carpal tunnel was prepped with alcohol and injected with 1/2 cc of 0.25% bupivacaine and 1/2 cc of 40 mg/cc Depo-Medrol, there is no intraoperative complications patient tolerated the procedure well and was transferred to the PACU. All counts were correct.
== END 2022-01-16 08:55 | disposition home or self-care (01) ==
LOC: SDC 06:13 → AC 06:14
PROVIDERS: Anesthesiology; PCP Internal Medicine; Referring Provider Orthopaedic Surgery; Visit Provider Orthopaedic Surgery
PROC: (CPT 64721; principal; 2022-01-16 07:15)
DX: G56.03 Carpal tunnel syndrome, bilateral upper limbs (principal); I10 Essential (primary) hypertension; F32.A Depression, unspecified
CPT/HCPCS: 64721; 20526; 01810; 81025; J7120; J2405

== ENCOUNTER → 2022-06-09 | Outpatient (CLI) | payer OTHER, SELFPAY ==
--- NOTE | 2022-06-09 09:00 | RAD_ITS ---
INDICATION: INJURY EXAMINATION/TECHNIQUE: X-RAY - RIGHT XR Shoulder 5 VIEWS COMPARISON: None. FINDINGS: SOFT TISSUES: No soft tissue swelling or gas. No radiopaque foreign body. BONES/JOINTS: No acute fracture or subluxation.. Normal alignment. There are degenerative changes of the acromioclavicular joint. No sclerotic or destructive changes observed. RAD/Shoulder min 2 Views IMPRESSION: Degenerative changes of the acromioclavicular joint. Electronically Signed: Deanne Landaverde MD at 9:33 EST ,
== END | disposition home or self-care (01) ==
LOC: RAD 08:53
PROVIDERS: PCP Internal Medicine; Visit Provider Clinical Nurse Specialist
DX: M25.511 Pain in right shoulder (principal); G89.29 Other chronic pain; S49.91XA Unspecified injury of right shoulder and upper arm, initial encounter
CPT/HCPCS: 73030

== ENCOUNTER → 2022-06-19 | Outpatient (CLI) | payer OTHER, SELFPAY ==
--- NOTE | 2022-06-19 10:13 | BI_ITS ---
MAMMOGRAPHY - BILATERAL SCREENING REASON FOR EXAM: Female, 46 years old. Routine annual screening examination. PERTINENT HISTORY: Aunt with breast cancer. TECHNIQUE: Digital bilateral breast sara (3D mammographic acquisition) in the CC and MLO projections. 2-D mediolateral oblique (MLO) and craniocaudad (CC) views of both breasts were obtained. CAD: Full Field Digital Mammography with Computer Added Detection was performed. COMPARISON: 06/15/2021, 05/13/2020. FINDINGS: Breast Composition: There are scattered areas of fibroglandular density. There are no dominant masses or suspicious calcifications. Stable benign-appearing bilateral axillary lymph nodes. No other significant abnormalities are identified. There has been no significant change since the prior study. BI/SCRN MAMM (CAD)W/SARA BILAT IMPRESSION: Stable bilateral screening mammogram. Yearly follow-up mammogram recommended. (A) ASSESSMENT CATEGORY: BIRADS Category 2: Benign. A letter regarding these results will be sent to the patient by the facility within 30 days. Approximately 10% of breast cancers are not detected by mammography. A normal mammogram should not delay biopsy of a clinically suspicious abnormality. Electronically Signed: Catarino Leone, at 9:27 EST ,
== END | disposition home or self-care (01) ==
LOC: OPBI 10:11
PROVIDERS: PCP Internal Medicine; Visit Provider Nurse Practitioner Family
DX: Z12.31 Encounter for screening mammogram for malignant neoplasm of breast (principal); Z80.3 Family history of malignant neoplasm of breast
CPT/HCPCS: 77063; 77067

== ENCOUNTER → 2022-07-09 | Outpatient (CLI) | payer OTHER, SELFPAY ==
--- NOTE | 2022-07-09 16:44 | MRI_ITS ---
EXAM: MR RIGHT UPPER EXTREMITY WITHOUT INTRAVENOUS CONTRAST, SHOULDER CLINICAL INDICATION: pain TECHNIQUE: Multiplanar and multisequence MR images of the right shoulder without intravenous contrast. This report was created using [employer] 360 report [employer] technology. COMPARISON: None. FINDINGS: TENDONS: SUPRASPINATUS: Tiny partial-thickness intrasubstance tear at the footprint of the supraspinatus tendon which is likely to be concealed at time of arthroscopy. To moderate supraspinatus tendinosis. INFRASPINATUS: Up to moderate tendinosis of the infraspinatus tendon with low-grade interstitial tearing along the myotendinous junction of the infraspinatus tendon. SUBSCAPULARIS: Unremarkable. Intact. TERES MINOR: Unremarkable. Intact. BICEPS BRACHII, LONG HEAD: Unremarkable. The extra-articular biceps tendon is in the bicipital groove. The intra-articular biceps tendon is normal. LIGAMENTS: GLENOHUMERAL: Unremarkable. Intact. MUSCLES: Unremarkable. No rotator cuff muscle atrophy. FLUID: Small glenohumeral joint effusion. No subacromial-subdeltoid space bursal fluid. CARTILAGE: Unremarkable. Articular cartilage intact. GLENOID LABRUM: Unremarkable. Intact, limited evaluation on non-arthrographic exam. BONES/JOINTS: Superior labral tear suspected. This can be further characterized with MR arthrography. Patchy bone marrow edema involving the humeral head more peripherally. Mild to moderate hypertrophic degenerative changes of the acromioclavicular joint. Type II acromion with curved undersurface. No subacromial enthesophyte or os acromiale. No coracoacromial ligament thickening. OTHER SOFT TISSUES: Unremarkable. No rotator interval edema. OTHER FINDINGS: Teres minor shows mild fatty infiltration which may be idiopathic. MRI/Upper Ext Joint Only(Routine) IMPRESSION: 1. Moderate tendinosis of the infraspinatus tendon with low-grade curvilinear interstitial tearing along the myotendinous junction of the infraspinatus tendon. 2. Tiny focal partial-thickness intrasubstance tear at the footprint of the supraspinatus tendon which is likely to be concealed at time of arthroscopy. 3. Superior labral tear suspected. This can be further characterized with MR arthrography Electronically Signed: Tr Nixon MD at 1:40 EST ,
== END | disposition home or self-care (01) ==
LOC: MRI 16:44
PROVIDERS: PCP Internal Medicine; Visit Provider Physician Assistant
DX: M19.011 Primary osteoarthritis, right shoulder (principal); S46.811A Strain of other muscles, fascia and tendons at shoulder and upper arm level, right arm, initial encounter; M75.81 Other shoulder lesions, right shoulder; M75.111 Incomplete rotator cuff tear or rupture of right shoulder, not specified as traumatic
CPT/HCPCS: 73221

== ENCOUNTER → 2022-08-02 | Outpatient (CLI) | payer OTHER, SELFPAY ==
[2022-08-02 08:48] LABS: Follicle Stimulating Hormone 19.7 mIU/mL; Thyroid Stim Hormone (TSH) 2.44 uIU/mL (0.358-3.74)
[2022-08-02 09:50] LABS: Hemoglobin A1c 5.7 % (3.8-5.6)
== END | disposition home or self-care (01) ==
PROVIDERS: PCP Internal Medicine; Visit Provider Nurse Practitioner Family
DX: Z00.00 Encounter for general adult medical examination without abnormal findings (principal); Z13.1 Encounter for screening for diabetes mellitus; I10 Essential (primary) hypertension; N91.2 Amenorrhea, unspecified
CPT/HCPCS: 36415; 82670; 83001; 83036; 84443

== ENCOUNTER 2022-08-30 13:00 | Outpatient (RCR) | payer OTHER, SELFPAY ==
--- NOTE | 2022-06-20 08:39 | HP.PTEVAL ---
Patient's Visit Information VINCENT MCGEE is a 46 year old F referred to Physical Therapy by TONYA HAMILTON with a diagnosis of B plantarfascitis. Date of Evaluation: 06/20/22 Physical Therapist: Dion Hinds, PT, ATC - Visit Plan Frequency: 1x/Week Duration: 1 Week Plan: Issue and instruct on proper orthotic care on next PT visit - Subjective Pt reports she has had B foot pain for several years. Pt notes she only has minor pain today because she hasn't worked yet. 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 Pt reports walking on the concrete floors is what causes her all of her pain. Pt reports she is here today for orthotics. Pt reports she has had orthotics from here in the past which made a significant difference. Pt reports her old pain is several years old and no longer provides the support she needs. Pt reports she has had cortisone injections in the past which helped, but the pain returns. Pt reports she has good sensation in her feet and denies any tingling or numbness. Pt notes she has had sleep difficulty in the past secondary to pain, but none currently. Pt reports she has intermittent difficulty with prolonged standing and ambulating secondary to pain in her feet. Pt notes the R foot is more sore than the L foot. 2/10 pain in her feet while sitting here at rest, 8/10 pain at the end of her working shifts. - Pain B feet Pain Intensity (Out of 10): 2 Pain Intensity Range: 8 - Objective Neuro: B LE sensation is WNL to light touch. B achilles reflex= 2/3. Gait: Pt ambulates with minimal heel strike. Mild pronation of B feet during stance phase. Early pronation of feet in toe off phasse. Palpation: Pt is very sore along the distribution of B plantarfascia's. No obvious deformity noted at this time. ankle ROM: R ankle DF= 0, PF= 65; L ankle DF= 4, PF= 60. ankle MMT: R ankle Eversion 4/5. All other B ankle MMT 5/5 throughout - Goals Goal 1:: Pt will properly be fit and educated on orthotic care on her next PT visit Goal Time Frame: 2 Weeks - Rehabilitation Potential Physical Therapy Diagnosis: Pt has B foot pain secondary to plantarfascitis Rehabilitation Potential: Good - Anticipated Interventions Patient/Client Instruction: Educate patient on: Condition, Plan of Care For the Purpose of:: To improve self management Orthotics: Shoe insert For the Purpose of:: To decrease pain Thank you for the opportunity to evaluate your patient. For Medicare and Medicare HMO plans, please review the plan of care and approve it. It will need to be FAXED BACK to us at [phone] for Medicare purposes. For Medicare only, by signing this I certify the plan of care. Please let me know if there are questions or concerns regarding this plan of care. Physician Signature: Date:
--- NOTE | 2022-08-30 13:28 | HP.PTDCSUM ---
It has been my pleasure to treat VINCENT MCGEE referred by HONORIO SHAIKH, JOSEC, with the diagnosis of B plantarfascitis for a total of 2 visit(s). Discharge Date: Please see the following information for a summary of their discharge status. Subjective: Pt reports she is ready for her orthotics B feet Pain Intensity (Out of 10): 0 Objective/Function: Pt is now I with HEP Goal 1:: Pt will properly be fit and educated on orthotic care on her next PT visit Goal Progress: Goal Met Plan: Discharge If there are questions or concerns regarding this patient's physical therapy, please feel free to call me at [phone]. Thank you for the referral of this patient. Sincerely, Dion Hinds, PT, ATC
== END 2022-08-30 19:00 | disposition home or self-care (01) ==
LOC: PT 13:00
PROVIDERS: PCP Internal Medicine; Referring Provider Nurse Practitioner; Visit Provider Nurse Practitioner
DX: M72.2 Plantar fascial fibromatosis (principal)
CPT/HCPCS: 97161; 97530; 97760; 97763

== ENCOUNTER → 2023-06-20 | Outpatient (CLI) | payer OTHER, SELFPAY ==
--- NOTE | 2023-06-20 09:22 | BI_ITS ---
MAMMOGRAPHY - BILATERAL SCREENING 3-D TOMOSYNTHESIS REASON FOR EXAM: Female, 47 years old. Routine annual screening mammogram. PERTINENT HISTORY: History of breast cancer in aunt. TECHNIQUE: 2-D mammograms and 3-D Tomosynthesis of the breast (s) were performed. CAD was performed. COMPARISON: June 19, 2022, June 15, 2021 FINDINGS: The breast composition is almost entirely fat. Normal lymph nodes and scattered benign calcifications, unchanged. No dominant masses, suspicious microcalcifications, asymmetries, skin thickening or nipple retraction. BI/SCRN MAMM (CAD)W/SARA BILAT IMPRESSION: No interval change and no mammographic signs of malignancy. Routine yearly mammogram recommended. ASSESSMENT CATEGORY: BIRADS Category 2: Benign. A letter regarding these results will be sent to the patient by the facility within 30 days. FOLLOW UP RECOMMENDATION: Yearly follow up mammogram recommended. (A) Approximately 10% of breast cancers are not detected by mammography. A normal mammogram should not delay biopsy of a clinically suspicious abnormality. Electronically Signed: Indra Lagunas MD at 12:54 EST ,
--- OUTSIDE RECORDS SUMMARY | 2023-06-20 09:42 | XMS RPT_ITS | CCD ---
Author Name Unknown Address [address] [place] [address] Organization [facility] Care Team Providers Care Animated Cartoons Painter Name Role Phone Rula Segundo Melonie Unavailable Gamal Almendarez MD Primary Care Provider Gamal Almendarez MD Primary Care Provider Gamal Almendarez MD Primary Care Provider ALEJA GARCIA Attending Unavailable GAMAL ALMENDAREZ Primary Care Unavailable GAMAL ALMENDAREZ Primary Care Unavailable BETZY HERNANDEZ Attending Unavailable TANESHA GAMAL Jeramie Primary Care Unavailable NEEL, MERRY Attending Unavailable GAMAL ALMENDAREZ Primary Care Unavailable GAMAL ALMENDAREZ Referring Unavailable FLORENCE SAAB Attending Unavailable Allergies Allergy Classification Reported Allergen(s) Allergy Type Date of Onset Reaction(s) Facility (1 source) cephalexin drug allergy 6 rash [facility] Work Phone: (15 sources) codeine; Translations: [CODEINE] drug allergy 1 Vomiting [facility] Work Phone: (15 sources) meperidine; Translations: [MEPERIDINE] drug allergy 1 Other: See Comments [facility] Work Phone: (2 sources) natural latex rubber; Translations: [LATEX] allergy to substance 6 [facility] Work Phone: (14 sources) Cephalexin; Translations: [CEPHALEXIN] Drug Allergy 09-26-201 2 [facility] Work Phone: (13 sources) Latex Drug Allergy 6 Itching, Rash [facility] Work Phone: (14 sources) Lisinopril; Translations: [LISINOPRIL] Drug Allergy 7 Intolerance [facility] (14 sources) Meperidine; Translations: [MEPERIDINE (PF)] Drug Allergy 7 Other: See Comments [facility] Work Phone: (13 sources) bandaids [Other] Propensity to adverse reactions 6 Itching [facility] Work Phone: (1 source) OTHER; Translations: [OTHER] Propensity to adverse reactions (disorder) 6 [facility] Repository Medications Completed/Discontinued Medications Medication Drug Class(es) Dates Sig (Normalized) Sig (Original) amoxicillin 500 mg oral tablet (2 sources) Penicillin-class Antibacterial Start: 10-09-2009 End: 02-24-2016 take 1 tablet by mouth three times daily AMOXIL 500 MG CAPS One tablet by mouth three times daily AMOXICILLIN [id number] Holli Khoury MS,PA-C 24 hr buPROPion hydrochloride 150 mg extended release oral tablet (15 sources) Aminoketone Start: 03-28-2021 End: 04-26-2023 take 1 tablet by mouth once daily buPROPion XL (WELLBUTRIN XL) 150 mg 24 hr tablet Indications: Anxiety and depression Take 1 tablet by mouth once daily. 90 tablet 3 04/26/2023 Active Problems Active Problems Problem Classification Problem Date Documented Da te Episodic/Chronic Anxiety disorders (2 sources) Mixed anxiety and depressive disorder; Translations: [Anxiety disorder, unspecified] Chronic Cardiac dysrhythmias (14 sources) Paroxysmal ventricular tachycardia; Translations: [Ventricular tachycardia] Onset: 05-08-2011 05-08-2011 Chronic Diverticulosis and diverticulitis (13 sources) Diverticular disease; Translations: [Diverticulosis of intestine, part unspecified, without perforation or abscess without bleeding] Onset: 02-17-2013 06-19-2021 Chronic Essential hypertension (16 sources) Hypertensive disorder; Translations: [Essential (primary) hypertension] Onset: 12-29-2012 02-24-2016 Chronic Headache; including migraine (14 sources) Migraine with aura; Translations: [Migraine with aura, not intractable, without status migrainosus] Onset: 12-29-2014 06-19-2021 Chronic Menstrual disorders (1 source) Amenorrhea; Translations: [Amenorrhea, unspecified] Chronic Osteoarthritis (13 sources) Osteoarthritis of knee; Translations: [Unilateral primary osteoarthritis, unspecified knee] Onset: 10-09-2018 10-09-2018 Chronic Other connective tissue disease (1 source) Plantar fasciitis; Translations: [Plantar fascial fibromatosis] Episodic Other gastrointestinal disorders (13 sources) Irritable bowel syndrome; Translations: [Irritable bowel syndrome without diarrhea] Onset: 09-03-2007 09-03-2007 Chronic Other gastrointestinal disorders (13 sources) Irritable bowel syndrome with diarrhea; Translations: [Irritable bowel syndrome with diarrhea] Onset: 04-14-2015 04-14-2015 Chronic Other injuries and conditions due to external causes (1 source) Injury of right shoulder; Translations: [Unspecified injury of right shoulder and upper arm, initial encounter] Episodic Other non-traumatic joint disorders (1 source) Chronic pain of right upper limb; Translations: [Pain in right shoulder] Episodic Other screening for suspected conditions (not mental disorders or infectious disease) (8 sources) Patient encounter status; Translations: [Encounter for screening mammogram for malignant neoplasm of breast] Onset: 06-07-2022 Episodic Other upper respiratory infections (1 source) Chronic maxillary sinusitis; Translations: [Chronic maxillary sinusitis] Onset: 10-09-2009 10-09-2009 Chronic Spondylosis; intervertebral disc disorders; other back problems (13 sources) Degeneration of cervical intervertebral disc; Translations: [Other cervical disc degeneration, unspecified cervical region] 06-24-2015 Chronic Unclassified (1 source) Cervical disc disorder at C6-C7 level with radiculopathy; Translations: [Cervical disc disorder at C6-C7 level with radiculopathy] Onset: 04-30-2016 04-30-2016 Unclassified (1 source) Preoperative cardiovascular examination ; Translations: [Encounter for preprocedural cardiovascular examination] Onset: 02-24-2016 02-24-2016 Past or Other Problems Problem Classification Problem Date Documented Da te Episodic/Chronic Abdominal hernia (13 sources) Umbilical hernia; Translations: [Umbilical hernia without obstruction or gangrene] Onset: 02-17-2013 02-17-2013 Episodic Cardiac dysrhythmias (1 source) Palpitations; Translations: [Palpitations] Onset: 05-08-2011 05-08-2011 Episodic Immunizations and screening for infectious disease (9 sources) Tuberculosis screening status; Translations: [Encounter for screening for respiratory tuberculosis] Onset: 07-27-2011 06-19-2021 Episodic Other aftercare (2 sources) Surgical follow-up; Translations: [Follow-up status] Onset: 10-18-2009 Resolved: 10-18-2009 09-24-2016 Episodic Other skin disorders (1 source) Disorder of the skin and subcutaneous tissue, unspecified; Translations: [Skin lesion] Onset: 02-22-2022 Episodic Spondylosis; intervertebral disc disorders; other back problems (20 sources) Spinal stenosis in cervical region; Translations: [Spinal stenosis, cervical region] Onset: 06-24-2014 01-21-2015 Episodic Results Test Name Value Interpretation Reference Range Facil ity Vital Signs Date Time Vital Sign Value Performing Clinician Facility 07-31-2022 12:57-0500 Body height 168.9 cm Aleja Radha 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 Work Phone: [facility] 07-31-2022 12:57-0500 Body weight 123.83 kg Aleja Radha 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 Work Phone: [facility] 07-31-2022 12:57-0500 Diastolic blood pressure 64 mm[Hg] Aleja Albany 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 Work Phone: [facility] 07-31-2022 12:57-0500 Systolic blood pressure 118 mm[Hg] Aleja Radha 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 Work Phone: [facility] 06-07-2022 09:17-0500 Body weight 122.47 kg Betzy Hernandez 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.LEAD GENERATION SPECIALIST Work Phone: [facility] 06-07-2022 09:17-0500 Diastolic blood pressure 72 mm[Hg] Betzy Hernandez 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.LEAD GENERATION SPECIALIST Work Phone: [facility] 06-07-2022 09:17-0500 Heart rate 78 /min Betzy Hernandez 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.LEAD GENERATION SPECIALIST Work Phone: [facility] 06-07-2022 09:17-0500 Respiratory rate 16 /min Betzy Gonzáless 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.LEAD GENERATION SPECIALIST Work Phone: [facility] 06-07-2022 09:17-0500 SaO2% (BldA) [Mass fraction] 95 % Betzy Hernandez 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.LEAD GENERATION SPECIALIST Work Phone: [facility] 06-07-2022 09:17-0500 Systolic blood pressure 130 mm[Hg] Betzy Hernandez 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.LEAD GENERATION SPECIALIST Work Phone: [facility] 05-23-2022 08:19-0500 Body weight 122.02 kg Merry Older 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 Work Phone: [facility] 05-23-2022 08:19-0500 Diastolic blood pressure 92 mm[Hg] Merry Older 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 Work Phone: [facility] 05-23-2022 08:19-0500 Heart rate 76 /min Merry Older 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 Work Phone: [facility] 05-23-2022 08:19-0500 Respiratory rate 16 /min Merry Older 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 Work Phone: [facility] 05-23-2022 08:19-0500 Systolic blood pressure 138 mm[Hg] Merry Older 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 Work Phone: [facility] 02-22-2022 10:19-0400 Body height 169.5 cm Florence Zurawick 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 Work Phone: [facility] 02-22-2022 10:19-0400 Body weight 120.75 kg Florence Zurawick 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 Work Phone: [facility] 02-22-2022 10:19-0400 Diastolic blood pressure 88 mm[Hg] Florence Zurawick 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 Work Phone: [facility] 02-22-2022 10:19-0400 Heart rate 72 /min Florence Zurawick 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 Work Phone: [facility] 02-22-2022 10:19-0400 Respiratory rate 16 /min Florence Zurawick 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 Work Phone: [facility] 02-22-2022 10:19-0400 Systolic blood pressure 138 mm[Hg] Florence Zurawick 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 Work Phone: [facility] 03-26-2016 09:44-0400 BMI (Body Mass Index) 39.62 kg/m2 [facility] Work Phone: 03-26-2016 09:44-[address] [facility] Work Phone: 10-18-2009 14:23-0400 Body Temperature 98.7 [degF] [facility] Work Phone: 10-18-2009 14:23-0400 BP Diastolic 85 mm[Hg] [facility] Work Phone: 10-18-2009 14:23-0400 BP Systolic 124 mm[Hg] [facility] Work Phone: 10-18-2009 14:23-0400 Pulse (Heart Rate) 77 /min [facility] Work Phone: 10-18-2009 14:23-0400 Pulse Oximetry 99 % [facility] Work Phone: 10-18-2009 14:23-0400 Respiratory Rate 12 /min [facility] Work Phone: 10-09-2009 15:21-[address] [facility] Work Phone: Encounters Encounter Date Encounter Type Care Provider Facility Start: 04-26-2023 Refill Gamal rodriguez MD Work Phone: [facility] Procedures Date Procedure Procedure Detail Performing Clinician Start: 06-15-2021 Mammography Gamal nevarez MD Work Phone: Start: 03-28-2021 Adult depression scr eening assessment Gamal Almendarez MD Work Phone: Start: 03-03-2020 Lipid 1996 panel - S juan m or Plasma Gamal Almendarez MD Work Phone: Plan of Treatment Date Care Activity Detail Author Start: 03-03-2025 Lipid 1996 panel - Serum or Plasma Lipid Screening [facility] Start: 03-03-2025 LIPID SCREEN LIPID SCREEN [facility] Start: 01-07-2024 HPV TESTING HPV TESTING [facility] Start: 07-31-2023 BP CONTROLLED (<130/80) BP CONTROLLED (<130/80) [facility] Start: 05-23-2023 ANNUAL PCP TEAM CHRONIC DISEASE VISIT ANNUAL PCP TEAM CHRONIC DISEASE VISIT [facility] Start: 03-03-2023 DIABETES SCREEN DIABETES SCREEN [facility] Start: 03-03-2023 Diabetes Screening Diabetes Screening [facility] Start: 02-22-2023 ANNUAL PCP TEAM CHRONIC DISEASE VISIT ANNUAL PCP TEAM CHRONIC DISEASE VISIT [facility] Start: 02-22-2023 Covid-19 Vaccine ( season) Covid-19 Vaccine ( season) [facility] Start: 02-22-2023 Influenza vaccination [facility] Start: 06-24-2022 DEPRESSION ASSESSMENT DEPRESSION ASSESSMENT [facility] Start: 06-15-2022 Mammography [facility] Start: 05-03-2022 ANNUAL PCP TEAM CHRONIC DISEASE VISIT ANNUAL PCP TEAM CHRONIC DISEASE VISIT [facility] Start: 03-28-2022 Adult depression screening assessment DEPRESSION SCREENING [facility] Start: 03-28-2022 BP CONTROLLED (<130/80) BP CONTROLLED (<130/80) [facility] Start: 02-22-2022 End: 04-24-2022 CBC panel - Blood by Automated count CBC Lab Routine Essential hypertension Expected: 02/22/2022, Expires: 04/24/2022 [facility] Work Phone: Immunizations Immunization Date Immunization Notes Care Provider Fa [facility] 04-16-2022 influenza virus vaccine, unspecified formulation Gamal Almendarez MD Work Phone: [facility] 03-20-2020 influenza, seasonal, injectable, preservative free Gamal Almendarez MD Work Phone: [facility] Work Phone: 04-30-2019 influenza, seasonal, injectable, preservative free Gamal Almendarez MD Work Phone: [facility] Work Phone: 03-21-2018 influenza, seasonal, injectable, preservative free Gamal Almendarez MD Work Phone: [facility] Work Phone: 04-02-2017 influenza, seasonal, injectable, preservative free Gamal Almendarez MD Work Phone: [facility] Work Phone: 03-22-2016 influenza, seasonal, injectable Gamal Almendarez MD Work Phone: [facility] 03-22-2016 influenza, seasonal, injectable, preservative free Gamal Almendarez MD Work Phone: [facility] Work Phone: 06-06-2015 influenza, seasonal, injectable, preservative free Gamal Almendarez MD Work Phone: [facility] Work Phone: 04-02-2014 influenza virus vaccine, unspecified formulation Gamal Almendarez MD Work Phone: [facility] 03-24-2014 influenza, seasonal, injectable, preservative free Gamal Almendarez MD Work Phone: [facility] Work Phone: 04-23-2013 influenza, seasonal, injectable Gamal Almendarez MD Work Phone: [facility] 04-23-2013 influenza, seasonal, injectable, preservative free Gamal Almendarez MD Work Phone: [facility] Work Phone: 08-13-2007 tetanus and diphther ia toxoids, adsorbed, preservative free, for adult use (2 Lf of tetanus toxoid and 2 Lf of diphtheria toxoid) Gamal Almendarez MD Work Phone: [facility] Work Phone: Payers Date Payer Category Payer Private Health Insurance MARYEVELIO WERNER [facility] [id number] 2022-Present [phone] [address] [place] [address] PPO [id number] 2020 Unknown MMO MMO [employer] [id number] 2020-Present [address] [place] [address] PPO [id number] 2020 Unknown MMO MMO [employer] [id number] 2020-Present [address] [place] [address] PPO [id number] 2020 Unknown [id number] Social History Date Type Detail Facility Start: 07-29-2017 End: 06-07-2022 Tobacco smoking status NHIS Never smoked tobacco [facility] Start: 05-08-2021 End: 07-31-2022 Alcohol intake Current non-drinker of alcohol (finding) [facility] Start: 1975 Sex Assigned At Female [facility] Start: 07-29-2017 End: 06-07-2022 Tobacco use and exposure Smokeless tobacco non-user [facility] Start: 02-12-2022 End: 02-22-2022 Exposure to SARS-CoV-2 (event) Not sure [facility] Start: 05-31-2020 End: 07-31-2022 History of Social function [facility] Work Phone: Start: 05-31-2020 End: 07-31-2022 Tobacco use panel [facility] Work Phone: Adult Depression Screening Assessment 0 [facility] Work Phone: Clinical Notes 03-19-2012 to 04-26-2023 Telephone Encounter - Aylin Foster LPN - 04/26/2023 1:53 PM EDTTelephone Encounter - Yani Brand - 04/26/2023 8:33 AM EDTTelephone Encounter - Siobhan Jay LPN - 04/22/2023 3:48 PM EDT Note Date & Type Note Facility 04-26-2023 Miscellaneous Notes Formattin g of this note might be different from the original. Next appt with pcp 05/25/23. Patient has been identified by name and date of : Yes, Provider Date 04/26 Time 834a Patient phones for refill(s): Requested Prescriptions Pending Prescriptions Disp Refills buPROPion XL (WELLBUTRIN XL) 150 mg 24 hr tablet 90 tablet 3 Sig: Take 1 tablet by mouth once daily. PARoxetine (PAXIL) 40 mg tablet 90 tablet 3 Sig: Take 1 tablet by mouth once daily. Date of last office visit in primary care: 02/22/2022 Date of next office visit in primary care: Visit date not found Last 2 Encounter Wt Readings: Date: Wt: 07/31/2022 123.8 kg (273 lb) 06/07/2022 122.5 kg (270 lb) Previous labs/tests for medication: Not applicable Please advise. Thank you. Yani Brand. documented in this encounter [facility] 04-22-2023 Miscellaneous Notes Formattin g of this note is different from the original. Patient has been identified by name and date of : Yes Patient phones for refill(s): Requested Prescriptions Pending Prescriptions Disp Refills hydrocortisone 2.5 % cream 30 g 1 Sig: Apply 1 application to affected area two times a day as needed (Hand eczema). Location: hands. Up to 2 weeks per skin lesion. Treat recurrences as needed Date of last office visit in primary care: 02/22/2022 Date of next office visit in primary care: Visit date not found Last 2 Encounter Wt Readings: Date: Wt: 07/31/2022 123.8 kg (273 lb) 06/07/2022 122.5 kg (270 lb) Previous labs/tests for medication: Not applicable Please advise. Thank you. Siobhan Jay LPN. Patient has been identified by name and date of : Yes Last office visit in this department: 02/22/2022 RX INSTRUCTIONS: Patient aware RX will be sent to pharmacy. No need to notify patient. Patient phones requesting refills as follows: Requested Prescriptions Pending Prescriptions Disp Refills hydrocortisone 2.5 % cream 30 g 1 Sig: Apply 1 application to affected area two times a day as needed (Hand eczema). Location: hands. Up to 2 weeks per skin lesion. Treat recurrences as needed Please review and advise. Hazel Avendano documented in this encounter [facility] 03-21-2023 Miscellaneous Notes Formattin g of this note might be different from the original. Ok 90 day supply, needs visit KAREN 06/07/22 No follow up appointment scheduled. Encounter routed to PSR to assist in scheduling Patient has been identified by name and date of : Yes Requested Prescriptions Pending Prescriptions Disp Refills dilTIAZem CD (CARDIZEM CD) 240 mg 24 hr capsule 90 capsule 3 Sig: Take 1 capsule by mouth once daily. losartan (COZAAR) 100 mg tablet 90 tablet 3 Sig: Take 1 tablet by mouth once daily. RX INSTRUCTIONS: Patient aware RX will be sent to [facility] pharmacy. No need to notify patient. Lili Lujan documented in this encounter [facility] 02-06-2023 Note Patient Outreach (IN TMMN) ANAYA YBARRA ([id number]) 1975 F Date Time Provider Department 02/06/23 GAMAL ALMENDAREZ During your visit today, we recorded the following information about you: Allergies As of Date: 02/06/2023 Noted Allergy Reaction LATEX 12/18/2005 9 - Itching 2 - Rash CODEINE 04/12/2011 11 - Vomiting bandaids [Other] 12/18/2005 9 - Itching DEMERAL (MEPERIDINE) 03/19/2012 14 - Other: See Comments Comments: Put patient into v-tach Demerol (MEPERIDINE (PF)) 06/26/2016 14 - Other: See Comments Comments: caused vtach KEFLEX (CEPHALEXIN) 03/19/2012 2 - Rash LISINOPRIL 10/16/2016 5 - Intolerance Comments: Cough Date Reviewed: 07/31/2022 Reviewed by: Aleja Garcia APRN.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 - Fully Assessed Visit Diagnosis:Encounter for screening mammogram for breast cancer [Z12.31] Order(s):[facility] SCREENING [[id number]] Order #: [id number] FUTURE Prescriptions as of 02/11/2023 - ibuprofen (MOTRIN) 200 mg tablet Take 1 tablet by mouth every 8 hours as needed for pain or fever (specify) (take with food). 800mg once daily as needed - hydrocortisone 2.5 % cream Apply 1 application to affected area twice daily as needed (Hand eczema). Location: hands. Up to 2 weeks per skin lesion. Treat recurrences as needed - buPROPion XL (WELLBUTRIN XL) 150 mg 24 hr tablet Take 1 tablet by mouth once daily. - PARoxetine (PAXIL) 40 mg tablet Take 1 tablet by mouth once daily. - losartan (COZAAR) 100 mg tablet Take 1 tablet by mouth once daily. - dilTIAZem CD (CARDIZEM CD) 240 mg 24 hr capsule Take 1 capsule by mouth once daily. - SUMAtriptan (IMITREX) 50 mg tablet TAKE 1 TABLET BY MOUTH. MAY REPEAT X1 AFTER 2HRS IF HEADACHE RETURNS Problem List As Of Date 02/06/2023 Noted Resolved IRRITABLE COLON [K58.9] 09/03/2007 Screening-pulmonary TB [Z11.1] 07/27/2011 07/31/2022 Routine medical exam [Z00.00] 03/19/2012 07/31/2022 VT (ventricular tachycardia) (HCC) [I47.20] 12/29/2012 Hypertension [I10] 12/29/2012 Diverticulosis [K57.90] 02/17/2013 Umbilical hernia [K42.9] 02/17/2013 Obesity [E66.9] 10/09/2018 Migraine headache with aura [G43.109] 12/29/2014 Spinal stenosis in cervical region [M48.02] 01/21/2015 Irritable bowel syndrome with diarrhea [K58.0] 04/14/2015 Bulging of cervical intervertebral disc without* 09/03/2016 DDD (degenerative disc disease), cervical [M50.* Foraminal stenosis of cervical region [M48.02] 06/24/2014 Primary osteoarthritis of knee [M17.10] 10/09/2018 Encounter Status:Closed by Tapjoy, PRODUSER on 02/11/23 [facility] 07-31-2022 Note HNO ID: [id number] Author: Aleja Garcia APRN.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 Service: ? Author Type: Nurse Practitioner Type: Progress Notes Filed: 07/31/2022 2:03 PM Note Text: Anaya is a 46 year old who presents for an annual gynecologic exam with complaints, no period since Feb 2022 . Feb had covid and has not had a period since, having cramping at times but no bleeding Menses: cycles every 25-30 days and 3-5 days of flow. Before covid Contraception: none HPV vaccine: No Last Pap: 01/13/2019 normal HPV: 01/08/2019 negative History of abnormal pap: Yes long time ago 20' Last mammogram: 2021normal @ [facility] Sexually active: Yes Pain with intercourse: No Postcoital bleeding: No Hot flashes: No Night sweats: No Vaginal dryness: No OB History T0 L2 SAB0 IAB0 Ectopic0 Multiple0 Live Births2 Demand Planning Analyst History LMP: 03/08/2022, Having periods Age at Menarche: Age at First : Age at Menopause: Demand Planning Analyst History Comments: Sexual Activity: Yes; No partner data on record; Contraception: No contraception data on record PAST MEDICAL HISTORY Diagnosis Date Bulging of cervical intervertebral disc without myelopathy DDD (degenerative disc disease), cervical Diverticulosis 02/17/2013 CT abd 12/2012 [facility] Foraminal stenosis of cervical region 06/[address] [facility] 06/2014 GERD (gastroesophageal reflux disease) Hypertension 12/29/2012 Irritable bowel syndrome 09/03/2007 Colonoscopy 01/28 - Migraine headache with aura 12/29/2014 worse with cervical spine issues Obesity Umbilical hernia 02/17/2013 VT (ventricular tachycardia) 12/29/2012 Following during delivery- no further episodes. Dr. Rodriges, stress testing completed PAST SURGICAL HISTORY Procedure Laterality Date ANTERIOR DISCECTOMY Left 07/02/2016 Dr. Hennessy DELIVERY ONLY 11/27 COLONOSCOPY FLX DX W/COLLJ SPEC WHEN PFRMD 2006 Colonoscopy - Dr. Loo PAST SURGICAL HISTORY OF LAPAROSCOPY PAST SURGICAL HISTORY OF BLADDER EXTENSION PAST SURGICAL HISTORY OF Right 06/2018 right knee surgery FAMILY HISTORY Problem Relation Age of Onset None Mother Cancer Father 60 liver cancer None Father None Sister Heart Maternal Grandmother Hypertension Paternal Grandmother Cancer Paternal Grandfather SOCIAL HISTORY Social History Tobacco Use Smoking status: Never Smokeless tobacco: Never Vaping Use Vaping Use: Never used Substance Use Topics Alcohol use: No Drug use: No REVIEW OF SYSTEMS Abdomen: No abdominal pain, nausea, vomiting, diarrhea, or constipation. No bloating, early satiety, indigestion, or increased flatulence. Bladder: No dysuria, gross hematuria, urinary frequency, urinary urgency, or incontinence. Breast: No breast lumps, nipple d/c, overlying skin changes, redness or skin retraction. Allergies and current medication updated:Yes EXAM: Ht 5' 6.5 (1.69m) Wt 273 lb (123.8kg) LMP 03/08/2022 BMI 43.41 kg/(m2). GENERAL: pleasant, female in no apparent distress HEENT: Normocephalic, atraumatic, and no lesions NECK: Supple, full range of motion, no adenopathy, and thyroid normal DERMATOLOGY: Normal, without lesions, non-icteric, and non-hirsute BREAST: soft, non-tender, symmetric, no dominant mass, normal nipple-areolar complex, no lymphadenopathy, and no nipple discharge CHEST: Normal inspiratory effort ABDOMEN: soft, non-tender, and no masses PELVIC: external genitalia normal, normal Bartholin's glands, urethra, [place]'s glands, no vulvar lesions, no cervical lesions, physiologic discharge present, normal appearing perineal body and perianal region BIMANUAL: uterus normal size, shape and consistency, no adnexal masses, and non-tender RECTOVAGINAL: deferred. NEURO: alert and oriented x3,exam grossly non-focal EXTREMITIES: normal ASSESSMENT/PLAN: 1) Health maintenance: Pap/HPV up to date. Mammogram up to date . Nutrition, exercise and routine health maintenance exams reviewed. 2) Contraception: none. Contraceptive options reviewed and information provided. 3) STD screening: Declined STD check. 4) Follow up one year or sooner as needed 5) Pelvic US, FSH, and Estradiol for amenorrhea Aleja Garcia APRN.[facility] 07-31-2022 History of Presen t illness Narrative Anaya is a 46 year old who presents for an annual gynecologic exam with complaints, no period since Feb 2022 . Feb had covid and has not had a period since, having cramping at times but no bleeding Menses: cycles every 25-30 days and 3-5 days of flow. Before covid Contraception: none HPV vaccine: No Last Pap: 01/13/2019 normal HPV: 01/08/2019 negative History of abnormal pap: Yes long time ago 20's Last mammogram: 2021normal @ [facility] Sexually active: Yes Pain with intercourse: No Postcoital bleeding: No Hot flashes: No Night sweats: No Vaginal dryness: No OB History T0 L2 SAB0 IAB0 Ectopic0 Multiple0 Live Births2 Demand Planning Analyst History LMP: 03/08/2022, Having periods Age at Menarche: Age at First : Age at Menopause: Demand Planning Analyst History Comments: Sexual Activity: Yes; No partner data on record; Contraception: No contraception data on record PAST MEDICAL HISTORY Diagnosis Date Bulging of cervical intervertebral disc without myelopathy DDD (degenerative disc disease), cervical Diverticulosis 02/17/2013 CT abd 12/2012 [facility] Foraminal stenosis of cervical region 06/[address] [facility] 06/2014 GERD (gastroesophageal reflux disease) Hypertension 12/29/2012 Irritable bowel syndrome 09/03/2007 Colonoscopy 01/28 - Migraine headache with aura 12/29/2014 worse with cervical spine issues Obesity Umbilical hernia 02/17/2013 VT (ventricular tachycardia) 12/29/2012 Following during delivery- no further episodes. Dr. Rodriges, stress testing completed PAST SURGICAL HISTORY Procedure Laterality Date ANTERIOR DISCECTOMY Left 07/02/2016 Dr. Hennessy DELIVERY ONLY 11/27 COLONOSCOPY FLX DX W/COLLJ SPEC WHEN PFRMD 2006 Colonoscopy - Dr. Loo PAST SURGICAL HISTORY OF LAPAROSCOPY PAST SURGICAL HISTORY OF BLADDER EXTENSION PAST SURGICAL HISTORY OF Right 06/2018 right knee surgery FAMILY HISTORY Problem Relation Age of Onset None Mother Cancer Father 60 liver cancer None Father None Sister Heart Maternal Grandmother Hypertension Paternal Grandmother Cancer Paternal Grandfather SOCIAL HISTORY Social History Tobacco Use Smoking status: Never Smokeless tobacco: Never Vaping Use Vaping Use: Never used Substance Use Topics Alcohol use: No Drug use: No REVIEW OF SYSTEMS Abdomen: No abdominal pain, nausea, vomiting, diarrhea, or constipation. No bloating, early satiety, indigestion, or increased flatulence. Bladder: No dysuria, gross hematuria, urinary frequency, urinary urgency, or incontinence. Breast: No breast lumps, nipple d/c, overlying skin changes, redness or skin retraction. Allergies and current medication updated:Yes EXAM: Ht 5' 6.5 (1.69m) Wt 273 lb (123.8kg) LMP 03/08/2022 BMI 43.41 kg/(m^2). GENERAL: pleasant, female in no apparent distress HEENT: Normocephalic, atraumatic, and no lesions NECK: Supple, full range of motion, no adenopathy, and thyroid normal DERMATOLOGY: Normal, without lesions, non-icteric, and non-hirsute BREAST: soft, non-tender, symmetric, no dominant mass, normal nipple-areolar complex, no lymphadenopathy, and no nipple discharge CHEST: Normal inspiratory effort ABDOMEN: soft, non-tender, and no masses PELVIC: external genitalia normal, normal Bartholin's glands, urethra, [place]'s glands, no vulvar lesions, no cervical lesions, physiologic discharge present, normal appearing perineal body and perianal region BIMANUAL: uterus normal size, shape and consistency, no adnexal masses, and non-tender RECTOVAGINAL: deferred. NEURO: alert and oriented x3,exam grossly non-focal EXTREMITIES: normal ASSESSMENT/PLAN: 1) Health maintenance: Pap/HPV up to date. Mammogram up to date . Nutrition, exercise and routine health maintenance exams reviewed. 2) Contraception: none. Contraceptive options reviewed and information provided. 3) STD screening: Declined STD check. 4) Follow up one year or sooner as needed 5) Pelvic US, FSH, and Estradiol for amenorrhea Aleja Garcia APRN.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 documented in this encounter [facility] 06-11-2022 Miscellaneous Notes Formattin g of this note might be different from the original. Reviewed. Pt completed x rays at [facility].they are in scanned documents. View External Imaging - X-ray [ID [id number]] View External Imaging - X-ray [ID [id number]] documented in this encounter [facility] 06-07-2022 Note HNO ID: [id number] Author: Betzy Hernandez APRN.[employer] SPECIALIST Service: ? Author Type: Nurse Specialist Type: Progress Notes Filed: 06/07/2022 10:00 AM Note Text: SUBJECTIVE: HEPATITIS B(1 of 3 - 3-dose series) Never done DTAP,TDAP,TD(1 - Tdap) due on 08/14/2007 COLORECTAL CANCER SCREENING Never done COVID-19 VACCINE(3 - Booster for Moderna series) due on 09/21/2020 DEPRESSION ASSESSMENT Never done PAP TESTING due on 01/06/2022 BP CONTROLLED (<130/80) due on 03/28/2022 MAMMOGRAM due on 06/15/2022 HPI Anaya Ybarra is a 46 year old female. Her past medical history significant for hypertension, ventricular tachycardia migraine, irritable bowel, anxiety depression. HPI excerpted from previous visit: Notes trying to eat healthy and remain active. 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 She notes most are unvaccinated patients. Ms. Ybarra indicates that she is feeling well and without noted chest pain, palpitations, dyspnea and peripheral edema. Notes HR in the 100 range with exertion at work. Anxiety/depression: Stable mood, PHQ-9 =2. Not currently going to counseling. Feels current medication is working well. No need for any changes at this time. No voiced SI. IBS: Without current complaints. Migraine: Rare migraines. Has not needed Imitrex in quite a while She notes chronic left lateral elbow pain present for about 1 year. Increased discomfort with lifting heavy items. Presents today regarding right shoulder pain. She reports anterior right shoulder pain since jumping off of a boat and grabbing a pulled and falling backwards while talking. Pain is constant. Achy pain. Decreased range of motion is present. Taking 800 mg ibuprofen once daily as needed for pain, has been helpful. She notes using the shoulder is painful with some routine activities. No numbness or tingling in her right arm. 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 Review of Systems Constitutional: Negative. Respiratory: Negative. Cardiovascular: Negative. Endocrine: Negative. Musculoskeletal: Positive for arthralgias. Objective BP 130/72 Pulse 78 Resp 16 Wt 122.5 kg (270 lb) LMP 11/18/2018 (LMP Unknown) SpO2 95% BMI 42.63 kg/m? Physical Exam Constitutional: General: She is not in acute distress. Appearance: Normal appearance. She is obese. She is not ill-appearing, toxic-appearing or diaphoretic. HENT: Head: Normocephalic and atraumatic. Eyes: General: No scleral icterus. Right eye: No discharge. Left eye: No discharge. Conjunctiva/sclera: Conjunctivae normal. Neck: Thyroid: No thyroid mass, thyromegaly or thyroid tenderness. Vascular: No carotid bruit. Cardiovascular: Rate and Rhythm: Normal rate. Pulses: Carotid pulses are 2+ on the right side and 2+ on the left side. Radial pulses are 2+ on the right side and 2+ on the left side. Dorsalis pedis pulses are 2+ on the right side and 2+ on the left side. Pulmonary: Effort: Pulmonary effort is normal. Musculoskeletal: Right shoulder: Tenderness and bony tenderness present. Decreased range of motion. Normal pulse. Cervical back: No rigidity. No muscular tenderness. Left lower leg: No edema. Skin: General: Skin is warm and dry. Neurological: General: No focal deficit present. Mental Status: She is alert and oriented to person, place, and time. BP 130/72 Pulse 78 Resp 16 Wt 122.5 kg (270 lb) LMP 11/18/2018 (LMP Unknown) SpO2 95% BMI 42.63 kg/m? ALLERGIES Allergen Reactions Latex Itching, Rash Codeine Vomiting Bandaids [Other] Itching Demeral [Meperidine] Other: See Comments Put patient into v-tach Demerol [Meperidine* Other: See Comments caused vtach Keflex [Cephalexin] Rash Lisinopril Intolerance Cough hydrocortisone 2.5 % cream Apply 1 application to affected area twice daily as needed (Hand eczema). Location: hands. Up to 2 weeks per skin lesion. Treat recurrences as needed buPROPion XL (WELLBUTRIN XL) 150 mg 24 hr tablet Take 1 tablet by mouth once daily. PARoxetine (PAXIL) 40 mg tablet Take 1 tablet by mouth once daily. losartan (COZAAR) 100 mg tablet Take 1 tablet by mouth once daily. dilTIAZem CD (CARDIZEM CD) 240 mg 24 hr capsule Take 1 capsule by mouth once daily. SUMAtriptan (IMITREX) 50 mg tablet TAKE 1 TABLET BY MOUTH. MAY REPEAT X1 AFTER 2HRS IF HEADACHE RETURNS ibuprofen (MOTRIN) 200 mg tablet Take 1 tablet by mouth every 8 hours as needed for pain or fever (specify) (take with food). 800mg once daily as needed PAST MEDICAL HISTORY Diagnosis Date Bulging of cervical intervertebral disc without myelopathy DDD (degenerative disc disease), cervical Diverticulosis 02/17/2013 CT abd 12/2012 [facility] Foraminal stenosis of cervical region 06/[address] [facility] 06/2014 GERD (gastroesophageal reflux disease) Hypertension 12/29/2012 Irritable bowel syndrome 09/03/2007 Colonoscopy (more content not included)... [facility] 06-07-2022 History of Presen t illness Narrative SUBJECTIVE: HEPATITIS B(1 of 3 - 3-dose series) Never done DTAP,TDAP,TD(1 - Tdap) due on 08/14/2007 COLORECTAL CANCER SCREENING Never done COVID-19 VACCINE(3 - Booster for Moderna series) due on 09/21/2020 DEPRESSION ASSESSMENT Never done PAP TESTING due on 01/06/2022 BP CONTROLLED (<130/80) due on 03/28/2022 MAMMOGRAM due on 06/15/2022 HPI Anaya Ybarra is a 46 year old female. Her past medical history significant for hypertension, ventricular tachycardia migraine, irritable bowel, anxiety depression. HPI excerpted from previous visit: Notes trying to eat healthy and remain active. 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 She notes most are unvaccinated patients. Ms. Ybarra indicates that she is feeling well and without noted chest pain, palpitations, dyspnea and peripheral edema. Notes HR in the 100 range with exertion at work. Anxiety/depression: Stable mood, PHQ-9 =2. Not currently going to counseling. Feels current medication is working well. No need for any changes at this time. No voiced SI. IBS: Without current complaints. Migraine: Rare migraines. Has not needed Imitrex in quite a while She notes chronic left lateral elbow pain present for about 1 year. Increased discomfort with lifting heavy items. Presents today regarding right shoulder pain. She reports anterior right shoulder pain since jumping off of a boat and grabbing a pulled and falling backwards while talking. Pain is constant. Achy pain. Decreased range of motion is present. Taking 800 mg ibuprofen once daily as needed for pain, has been helpful. She notes using the shoulder is painful with some routine activities. No numbness or tingling in her right arm. 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 Review of Systems Constitutional: Negative. Respiratory: Negative. Cardiovascular: Negative. Endocrine: Negative. Musculoskeletal: Positive for arthralgias. Objective BP 130/72 Pulse 78 Resp 16 Wt 122.5 kg (270 lb) LMP 11/18/2018 (LMP Unknown) SpO2 95% BMI 42.63 kg/m Physical Exam Constitutional: General: She is not in acute distress. Appearance: Normal appearance. She is obese. She is not ill-appearing, toxic-appearing or diaphoretic. HENT: Head: Normocephalic and atraumatic. Eyes: General: No scleral icterus. Right eye: No discharge. Left eye: No discharge. Conjunctiva/sclera: Conjunctivae normal. Neck: Thyroid: No thyroid mass, thyromegaly or thyroid tenderness. Vascular: No carotid bruit. Cardiovascular: Rate and Rhythm: Normal rate. Pulses: Carotid pulses are 2+ on the right side and 2+ on the left side. Radial pulses are 2+ on the right side and 2+ on the left side. Dorsalis pedis pulses are 2+ on the right side and 2+ on the left side. Pulmonary: Effort: Pulmonary effort is normal. Musculoskeletal: Right shoulder: Tenderness and bony tenderness present. Decreased range of motion. Normal pulse. Cervical back: No rigidity. No muscular tenderness. Left lower leg: No edema. Skin: General: Skin is warm and dry. Neurological: General: No focal deficit present. Mental Status: She is alert and oriented to person, place, and time. BP 130/72 Pulse 78 Resp 16 Wt 122.5 kg (270 lb) LMP 11/18/2018 (LMP Unknown) SpO2 95% BMI 42.63 kg/m ALLERGIES Allergen Reactions Latex Itching, Rash Codeine Vomiting Bandaids [Other] Itching Demeral [Meperidine] Other: See Comments Put patient into v-tach Demerol [Meperidine* Other: See Comments caused vtach Keflex [Cephalexin] Rash Lisinopril Intolerance Cough hydrocortisone 2.5 % cream Apply 1 application to affected area twice daily as needed (Hand eczema). Location: hands. Up to 2 weeks per skin lesion. Treat recurrences as needed buPROPion XL (WELLBUTRIN XL) 150 mg 24 hr tablet Take 1 tablet by mouth once daily. PARoxetine (PAXIL) 40 mg tablet Take 1 tablet by mouth once daily. losartan (COZAAR) 100 mg tablet Take 1 tablet by mouth once daily. dilTIAZem CD (CARDIZEM CD) 240 mg 24 hr capsule Take 1 capsule by mouth once daily. SUMAtriptan (IMITREX) 50 mg tablet TAKE 1 TABLET BY MOUTH. MAY REPEAT X1 AFTER 2HRS IF HEADACHE RETURNS ibuprofen (MOTRIN) 200 mg tablet Take 1 tablet by mouth every 8 hours as needed for pain or fever (specify) (take with food). 800mg once daily as needed PAST MEDICAL HISTORY Diagnosis Date Bulging of cervical intervertebral disc without myelopathy DDD (degenerative disc disease), cervical Diverticulosis 02/17/2013 CT abd 12/2012 [facility] Foraminal stenosis of cervical region 06/[address] [facility] 06/2014 GERD (gastroesophageal reflux disease) Hypertension 12/29/2012 Irritable bowel syndrome 09/03/2007 Colonoscopy 01/28 - Migraine headache with aura 12/29/2014 worse with cervical spine issues Obesity Umbilical hernia 02/17/2013 VT (ventricular tachycardia) 12/29/2012 Following during delivery- no further episodes. Dr. Rodriges, stress testing completed Social History Tobacco Use Smoking status: Never Smokeless tobacco: Never Substance Use Topics Alcohol use: No Drug use: No ASSESSMENT/PLAN: 1. Injury of right shoulder, initial encounter - ICD9: 959.2, ICD10: S49.91XA (primary diagnosis) 5. Chronic right shoulder pain - ICD9: 719.41, 338.29, ICD10: M25.511, G89.29 Right-handed. 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 She has had right anterior shoulder pain and decreased range of motion since that time. Has been taking 800 mg ibuprofen once daily which has helped with the pain somewhat. Defers meloxicam at this time. Recommend gentle range of motion exercises, provided with Ortho info rehab exercises for shoulder. X-ray and orthopedic visit. Prefers to complete both at [facility], prefers Dr. Melva Castro. Avoid painful activities Physical therapy after completing orthopedic visit if appropriate - XR SHOULDER [id number] AP/TRUE AP RIGHT - IBUPROFEN 200 MG TABLET - CONSULT TO ORTHOPAEDICS - CONSULT TO PHYSICAL THERAPY Betzy Hernandez APRN.CNS Medical Decision Making: Problems: Low: Acute, uncomplicated illness or injury Data: Unique test(s) ordered: 1 Risk: Moderate: Drug management Medical Decision Making Level: 3 - Low documented in this encounter [facility] 06-05-2022 Miscellaneous Notes Formattin g of this note might be different from the original. Pt calls to report that [facility] has not received order for PT. Order faxed to [facility] as requested. Danisha Carlton LPN documented in this encounter [facility] 05-23-2022 Note HNO ID: [id number] Author: Merry Neff APRN.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 Service: ? Author Type: Nurse Practitioner Type: Progress Notes Filed: 05/23/2022 8:48 AM Note Text: CC: Patient presents with: Recheck: Follow up hand eczema HPI Anaya Ybarra is a 46 year old female who presents today for possible orthotics for her feet. Patient has recurrent plantar fascitis to bilateral feet. Last set of orthotics was years ago. Recently got H[facility]as as requested by orthotic placement. 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 Denies any injury, edema, fever, change in sensation, weakness, current pain, or change in gait. REVIEW OF SYSTEMS See HPI PAST MEDICAL HISTORY Diagnosis Date Bulging of cervical intervertebral disc without myelopathy DDD (degenerative disc disease), cervical Diverticulosis 02/17/2013 CT abd 12/2012 [facility] Foraminal stenosis of cervical region 06/[address] [facility] 06/2014 GERD (gastroesophageal reflux disease) Hypertension 12/29/2012 Irritable bowel syndrome 09/03/2007 Colonoscopy 01/28 - Migraine headache with aura 12/29/2014 worse with cervical spine issues Obesity Umbilical hernia 02/17/2013 VT (ventricular tachycardia) ([facility]) 12/29/2012 Following during delivery- no further episodes. Dr. Rodriges, stress testing completed PAST SURGICAL HISTORY Procedure Laterality Date ANTERIOR DISCECTOMY Left 07/02/2016 Dr. Hennessy DELIVERY ONLY 11/27 COLONOSCOPY FLX DX W/COLLJ SPEC WHEN PFRMD 2006 Colonoscopy - Dr. Loo PAST SURGICAL HISTORY OF LAPAROSCOPY PAST SURGICAL HISTORY OF BLADDER EXTENSION PAST SURGICAL HISTORY OF Right 06/2018 right knee surgery ALLERGIES Latex, Codeine, Bandaids [Other], Demeral [Meperidine], Demerol [Meperidine (Pf)], Keflex [Cephalexin], and Lisinopril MEDICATIONS hydrocortisone 2.5 % cream Apply 1 application to affected area twice daily as needed (Hand eczema). Location: hands. Up to 2 weeks per skin lesion. Treat recurrences as needed buPROPion XL (WELLBUTRIN XL) 150 mg 24 hr tablet Take 1 tablet by mouth once daily. PARoxetine (PAXIL) 40 mg tablet Take 1 tablet by mouth once daily. losartan (COZAAR) 100 mg tablet Take 1 tablet by mouth once daily. dilTIAZem CD (CARDIZEM CD) 240 mg 24 hr capsule Take 1 capsule by mouth once daily. SUMAtriptan (IMITREX) 50 mg tablet TAKE 1 TABLET BY MOUTH. MAY REPEAT X1 AFTER 2HRS IF HEADACHE RETURNS FAMILY HISTORY Problem Relation Age of Onset None Mother Cancer Father 60 liver cancer None Father None Sister Heart Maternal Grandmother Hypertension Paternal Grandmother Cancer Paternal Grandfather Social History Tobacco Use Smoking status: Never Smokeless tobacco: Never Substance Use Topics Alcohol use: No Drug use: No PHYSICAL EXAM BP 138/92 Pulse 76 Resp 16 Wt 122 kg (269 lb) LMP 11/18/2018 (LMP Unknown) BMI 42.47 kg/m? General Appearance: well appearing, in no acute distress, alert Skin: Skin color, texture, turgor normal for age; Eyes: conjunctiva pink and moist, no icterus, sclera white, non-injected BLE Extremities: No deformities, edema, skin discoloration, clubbing or cyanosis. Good capillary refill. Bilateral Feet: No tenderness, edema, or redness. Sensation intact and pulses palpable. ASSESSMENT/PLAN: 1. Plantar fasciitis - ICD9: 728.71, ICD10: M72.2 - stable, no exacerbation of pain at this time - will send to PT for orthotics - CONSULT TO PHYSICAL THERAPY Prescription instructions reviewed with patient as applicable. Potential red flag symptoms discussed with the patient. Reviewed appropriate action plan to take if red flag symptoms occur. Patient agreeable to treatment plan. Merry Neff APRN.[facility] 05-23-2022 History of Presen t illness Narrative CC: Patient presents with: Recheck: Follow up hand eczema HPI Anaya Ybarra is a 46 year old female who presents today for possible orthotics for her feet. Patient has recurrent plantar fascitis to bilateral feet. Last set of orthotics was years ago. Recently got Hokas as requested by orthotic placement. 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 Denies any injury, edema, fever, change in sensation, weakness, current pain, or change in gait. REVIEW OF SYSTEMS See HPI PAST MEDICAL HISTORY Diagnosis Date Bulging of cervical intervertebral disc without myelopathy DDD (degenerative disc disease), cervical Diverticulosis 02/17/2013 CT abd 12/2012 [facility] Foraminal stenosis of cervical region 06/[address] [facility] 06/2014 GERD (gastroesophageal reflux disease) Hypertension 12/29/2012 Irritable bowel syndrome 09/03/2007 Colonoscopy 01/28 - Migraine headache with aura 12/29/2014 worse with cervical spine issues Obesity Umbilical hernia 02/17/2013 VT (ventricular tachycardia) (HCC) 12/29/2012 Following during delivery- no further episodes. Dr. Rodriges, stress testing completed PAST SURGICAL HISTORY Procedure Laterality Date ANTERIOR DISCECTOMY Left 07/02/2016 Dr. Hennessy DELIVERY ONLY 11/27 COLONOSCOPY FLX DX W/COLLJ SPEC WHEN PFRMD 2006 Colonoscopy - Dr. Loo PAST SURGICAL HISTORY OF LAPAROSCOPY PAST SURGICAL HISTORY OF BLADDER EXTENSION PAST SURGICAL HISTORY OF Right 06/2018 right knee surgery ALLERGIES Latex, Codeine, Bandaids [Other], Demeral [Meperidine], Demerol [Meperidine (Pf)], Keflex [Cephalexin], and Lisinopril MEDICATIONS hydrocortisone 2.5 % cream Apply 1 application to affected area twice daily as needed (Hand eczema). Location: hands. Up to 2 weeks per skin lesion. Treat recurrences as needed buPROPion XL (WELLBUTRIN XL) 150 mg 24 hr tablet Take 1 tablet by mouth once daily. PARoxetine (PAXIL) 40 mg tablet Take 1 tablet by mouth once daily. losartan (COZAAR) 100 mg tablet Take 1 tablet by mouth once daily. dilTIAZem CD (CARDIZEM CD) 240 mg 24 hr capsule Take 1 capsule by mouth once daily. SUMAtriptan (IMITREX) 50 mg tablet TAKE 1 TABLET BY MOUTH. MAY REPEAT X1 AFTER 2HRS IF HEADACHE RETURNS FAMILY HISTORY Problem Relation Age of Onset None Mother Cancer Father 60 liver cancer None Father None Sister Heart Maternal Grandmother Hypertension Paternal Grandmother Cancer Paternal Grandfather Social History Tobacco Use Smoking status: Never Smokeless tobacco: Never Substance Use Topics Alcohol use: No Drug use: No PHYSICAL EXAM BP 138/92 Pulse 76 Resp 16 Wt 122 kg (269 lb) LMP 11/18/2018 (LMP Unknown) BMI 42.47 kg/m General Appearance: well appearing, in no acute distress, alert Skin: Skin color, texture, turgor normal for age; Eyes: conjunctiva pink and moist, no icterus, sclera white, non-injected BLE Extremities: No deformities, edema, skin discoloration, clubbing or cyanosis. Good capillary refill. Bilateral Feet: No tenderness, edema, or redness. Sensation intact and pulses palpable. ASSESSMENT/PLAN: 1. Plantar fasciitis - ICD9: 728.71, ICD10: M72.2 - stable, no exacerbation of pain at this time - will send to PT for orthotics - CONSULT TO PHYSICAL THERAPY Prescription instructions reviewed with patient as applicable. Potential red flag symptoms discussed with the patient. Reviewed appropriate action plan to take if red flag symptoms occur. Patient agreeable to treatment plan. Merry Neff APRN.CNP documented in this encounter [facility] 04-10-2022 Miscellaneous Notes Formattin g of this note might be different from the original. Patient requesting mammogram order be faxed to [facility]. Faxed as requested to [phone]. Dot Lo RN documented in this encounter [facility] 02-22-2022 Note HNO ID: [id number] Author: Florence Aguirre APRN.CNP Service: ? Author Type: Nurse Practitioner Type: Progress Notes Filed: 02/22/2022 10:57 AM Note Text: Chief Complaint Patient presents with: Physical HPI Anaya Ybarra is a 46 year old female who presents here today for Above Complaints. Anaya is an established patient of Dr. Tanesha MD. Anaya is a new patient to me today. Concerns today.. Needs routine wellness exam and screening tests for employer insurance. HTN -- Losartan 100 mg daily and cardizem 240 mg daily. Been on this regimen for years. She states compliant with current blood pressure medications. She does not check BP at home. She denies chest pain, shortness of breath, palpitations, dizziness, leg edema, headaches, or vision changes. Last 14 Encounter BP Readings: Date: BP: 02/22/2022 138/88 05/08/2021 120/80 05/03/2021 132/78 03/28/2021 118/72 03/03/2020 122/80 01/28/2020 114/82 03/02/2019 128/82 01/06/2019 122/72 12/04/2018 120/80 09/15/2018 124/82 12/28/2017 130/82 10/30/2017 138/86 08/30/2017 160/120 07/29/2017 130/82 Depression/anxiety -- Wellbutrin 150 mg daily and Paxil 40 mg daily. Feels good on this regimen. Stable. Well controlled. Headaches -- Imitrex 50 mg prn ( x 2 per day). Has used about 1-2 x this year so far. Very rarely needing. Carpal tunnel surgery about 5-6 weeks ago. Been back to work for 2 weeks now. No numbness at night anymore. Seeing huge improvement already. HM -- Cologuard in March -- Negative Mammogram is due in Decemebr. Due for PAP, abnormal PAP in her 20s. biopsy was normal. No abnormalities since. Would like to return to [facility] for routine exams. Declined Tetanus. Past medical history, appointments, medications, allergies reviewed. Previous Medical History PAST MEDICAL HISTORY Diagnosis Date Bulging of cervical intervertebral disc without myelopathy DDD (degenerative disc disease), cervical Diverticulosis 02/17/2013 CT abd 12/2012 [facility] Foraminal stenosis of cervical region 06/[address] [facility] 06/2014 GERD (gastroesophageal reflux disease) Hypertension 12/29/2012 Irritable bowel syndrome 09/03/2007 Colonoscopy 01/28 - Migraine headache with aura 12/29/2014 worse with cervical spine issues Obesity Umbilical hernia 02/17/2013 VT (ventricular tachycardia) ([facility]) 12/29/2012 Following during delivery- no further episodes. Dr. Rodriges, stress testing completed Previous Surgical History PAST SURGICAL HISTORY Procedure Laterality Date ANTERIOR DISCECTOMY Left 07/02/2016 Dr. Hennessy DELIVERY ONLY 11/27 COLONOSCOPY FLX DX W/COLLJ SPEC WHEN PFRMD 2006 Colonoscopy - Dr. Loo PAST SURGICAL HISTORY OF LAPAROSCOPY PAST SURGICAL HISTORY OF BLADDER EXTENSION PAST SURGICAL HISTORY OF Right 06/2018 right knee surgery Family History FAMILY HISTORY Problem Relation Age of Onset Cancer Paternal Grandfather Heart Maternal Grandmother Hypertension Paternal Grandmother None Mother None Father None Sister Patient Allergies ALLERGIES Allergen Reactions Latex Itching, Rash Codeine Vomiting Bandaids [Other] Itching Demeral [Meperidine] Other: See Comments Put patient into v-tach Demerol [Meperidine* Other: See Comments caused vtach Keflex [Cephalexin] Rash Lisinopril Intolerance Cough Current Medications Current Outpatient Medications on File Prior to Visit Medication Sig dilTIAZem CD (CARDIZEM CD) 240 mg 24 hr capsule Take 1 capsule by mouth once daily. buPROPion XL (WELLBUTRIN XL) 150 mg 24 hr tablet Take 1 tablet by mouth once daily. PARoxetine (PAXIL) 40 mg tablet Take 1 tablet by mouth once daily. SUMAtriptan (IMITREX) 50 mg tablet TAKE 1 TABLET BY MOUTH. MAY REPEAT X1 AFTER 2HRS IF HEADACHE RETURNS losartan (COZAAR) 100 mg tablet Take 1 tablet by mouth once daily. No current facility-administered medications on file prior to visit. Social History Social History Tobacco Use Smoking status: Never Smokeless tobacco: Never Substance Use Topics Alcohol use: No Drug use: No REVIEW OF SYSTEMS: as above Reviewed relevant PMHx, PSHx, Social Hx, current medications and allergies. Review of Symptoms REVIEW OF SYSTEMS See HPI. All other systems are negative. EXAM: LMP 11/18/2018 (LMP Unknown) General Appearance: Well appearing, alert, in no acute distress, well-hydrated, well nourished.. Skin: Skin color, texture, turgor normal, no suspicious rashes or lesions. Head: Normocephalic, no masses, lesions, tenderness or abnormalities. Neck: Supple, no adenopathy; thyroid symmetric, normal size, no bruits. Back:no pain to palpation of vertebrae, good flexion and extension, good range of motion, no muscle tenderness, reflexes are 2+ and symmetric, motor and sensory appear to be normal, negative SLR test, no evidence of scoliosis Lungs: Lungs clear to auscultation. No wheezing, rhonchi, rale (more content not included)... [facility] 02-22-2022 History of Presen t illness Narrative Chief Complaint Patient presents with: Physical HPI Anaya Ybarra is a 46 year old female who presents here today for Above Complaints. Anaya is an established patient of Dr. Tanesha MD. Anaya is a new patient to me today. Concerns today.. Needs routine wellness exam and screening tests for employer insurance. HTN -- Losartan 100 mg daily and cardizem 240 mg daily. Been on this regimen for years. She states compliant with current blood pressure medications. She does not check BP at home. She denies chest pain, shortness of breath, palpitations, dizziness, leg edema, headaches, or vision changes. Last 14 Encounter BP Readings: Date: BP: 02/22/2022 138/88 05/08/2021 120/80 05/03/2021 132/78 03/28/2021 118/72 03/03/2020 122/80 01/28/2020 114/82 03/02/2019 128/82 01/06/2019 122/72 12/04/2018 120/80 09/15/2018 124/82 12/28/2017 130/82 10/30/2017 138/86 08/30/2017 160/120 07/29/2017 130/82 Depression/anxiety -- Wellbutrin 150 mg daily and Paxil 40 mg daily. Feels good on this regimen. Stable. Well controlled. Headaches -- Imitrex 50 mg prn ( x 2 per day). Has used about 1-2 x this year so far. Very rarely needing. Carpal tunnel surgery about 5-6 weeks ago. Been back to work for 2 weeks now. No numbness at night anymore. Seeing huge improvement already. HM -- Cologuard in March -- Negative Mammogram is due in Decemebr. Due for PAP, abnormal PAP in her 20s. biopsy was normal. No abnormalities since. Would like to return to [facility] for routine exams. Declined Tetanus. Past medical history, appointments, medications, allergies reviewed. Previous Medical History PAST MEDICAL HISTORY Diagnosis Date Bulging of cervical intervertebral disc without myelopathy DDD (degenerative disc disease), cervical Diverticulosis 02/17/2013 CT abd 12/2012 [facility] Foraminal stenosis of cervical region 06/[address] [facility] 06/2014 GERD (gastroesophageal reflux disease) Hypertension 12/29/2012 Irritable bowel syndrome 09/03/2007 Colonoscopy 01/28 - Migraine headache with aura 12/29/2014 worse with cervical spine issues Obesity Umbilical hernia 02/17/2013 VT (ventricular tachycardia) (HCC) 12/29/2012 Following during delivery- no further episodes. Dr. Rodriges, stress testing completed Previous Surgical History PAST SURGICAL HISTORY Procedure Laterality Date ANTERIOR DISCECTOMY Left 07/02/2016 Dr. Hennessy DELIVERY ONLY 11/27 COLONOSCOPY FLX DX W/COLLJ SPEC WHEN PFRMD 2006 Colonoscopy - Dr. Loo PAST SURGICAL HISTORY OF LAPAROSCOPY PAST SURGICAL HISTORY OF BLADDER EXTENSION PAST SURGICAL HISTORY OF Right 06/2018 right knee surgery Family History FAMILY HISTORY Problem Relation Age of Onset Cancer Paternal Grandfather Heart Maternal Grandmother Hypertension Paternal Grandmother None Mother None Father None Sister Patient Allergies ALLERGIES Allergen Reactions Latex Itching, Rash Codeine Vomiting Bandaids [Other] Itching Demeral [Meperidine] Other: See Comments Put patient into v-tach Demerol [Meperidine* Other: See Comments caused vtach Keflex [Cephalexin] Rash Lisinopril Intolerance Cough Current Medications Current Outpatient Medications on File Prior to Visit Medication Sig dilTIAZem CD (CARDIZEM CD) 240 mg 24 hr capsule Take 1 capsule by mouth once daily. buPROPion XL (WELLBUTRIN XL) 150 mg 24 hr tablet Take 1 tablet by mouth once daily. PARoxetine (PAXIL) 40 mg tablet Take 1 tablet by mouth once daily. SUMAtriptan (IMITREX) 50 mg tablet TAKE 1 TABLET BY MOUTH. MAY REPEAT X1 AFTER 2HRS IF HEADACHE RETURNS losartan (COZAAR) 100 mg tablet Take 1 tablet by mouth once daily. No current facility-administered medications on file prior to visit. Social History Social History Tobacco Use Smoking status: Never Smokeless tobacco: Never Substance Use Topics Alcohol use: No Drug use: No REVIEW OF SYSTEMS: as above Reviewed relevant PMHx, PSHx, Social Hx, current medications and allergies. Review of Symptoms REVIEW OF SYSTEMS See HPI. All other systems are negative. EXAM: LMP 11/18/2018 (LMP Unknown) General Appearance: Well appearing, alert, in no acute distress, well-hydrated, well nourished.. Skin: Skin color, texture, turgor normal, no suspicious rashes or lesions. Head: Normocephalic, no masses, lesions, tenderness or abnormalities. Neck: Supple, no adenopathy; thyroid symmetric, normal size, no bruits. Back:no pain to palpation of vertebrae, good flexion and extension, good range of motion, no muscle tenderness, reflexes are 2+ and symmetric, motor and sensory appear to be normal, negative SLR test, no evidence of scoliosis Lungs: Lungs clear to auscultation. No wheezing, rhonchi, rales.. Heart: RRR without murmur, gallop, or rubs. No ectopy. Abdomen: Normal abdominal exam, Abdomen soft, non-tender. Bowel sounds normal. No masses, organomegaly. Extremities: No deformities, edema, skin discoloration, clubbing or cyanosis. Good capillary refill. . Musculoskeletal: No joint swelling, deformity, or tenderness. Peripheral Pulses: Normal. Neurologic: Gait normal. Reflexes normal and symmetric. Sensation grossly intact.. Health Maintenance List HEPATITIS B(1 of 3 - 3-dose series) Never done DTAP,TDAP,TD(1 - Tdap) due on 08/14/2007 COLORECTAL CANCER SCREENING Never done COVID-19 VACCINE(3 - Booster for Moderna series) due on 12/24/2020 PAP TESTING due on 01/06/2022 INFLUENZA(1) due on 02/22/2022 BP CONTROLLED (<130/80) due on 03/28/2022 DEPRESSION SCREENING due on 03/28/2022 ANNUAL PCP TEAM CHRONIC DISEASE VISIT due on 05/03/2022 MAMMOGRAM due on 06/15/2022 DIABETES SCREEN due on 03/03/2023 HPV TESTING due on 01/07/2024 LIPID SCREEN due on 03/03/2025 HEPATITIS C SCREENING Completed HIV SCREENING Completed ASSESSMENT/PLAN: 1. Wellness examination - ICD9: V70.0, ICD10: Z00.00 (primary diagnosis) - Counseled on healthy diet and regular exercise - Calcium intake with supplements or by diet of 1000 mg/day for under 50, 4842-0251 mg/day for 50+ - Discussed need and benefit for weight loss. BMI 42.03 kg/(m^2) - Mammogram ordered - exam recommended once yearly - Follow up for annual exam in one year - paperwork filled out for employer. - TSH BLD - COMP METABOLIC PANEL - CBC - LIPID PANEL BASIC - HGB A1C 2. Essential hypertension - ICD9: 401.9, ICD10: I10 - fair control - Continue current medication(s) - Encouraged dietary sodium restriction/DASH diet - Recommended regular aerobic exercise. - Recommend home blood pressure monitoring, to bring results in on next visit - Discussed need and benefit for weight loss. - Goal of BP <130/80 - Recommend home or pharmacy blood pressure monitoring 1-2 x per week -- reach out if elevated above 140/80 consistently. - Recommended no refined sugar, low refined starch, healthy oil intake (olive oil), healthy protein (fish) along the lines of the Mediterranean diet. - COMP METABOLIC PANEL - CBC - LIPID PANEL BASIC - HGB A1C - LOSARTAN 100 MG TABLET - DILTIAZEM SR 240 MG 24 HR CAP 3. Anxiety and depression - ICD9: 300.00, 311, ICD10: F41.9, F32.A Stable. Well controlled. Refilled - BUPROPION XL 150 MG TAB - PAROXETINE 40 MG TABLET 4. Migraine with aura and without status migrainosus, not intractable - ICD9: 346.00, ICD10: G43.109 Stable. Well controlled. 5. Encounter for screening mammogram for malignant neoplasm of breast - ICD9: V76.12, ICD10: Z12.31 Due in May - LEONOR SCREENING W SARA 6. Pap smear for cervical cancer screening - ICD9: V76.2, ICD10: Z12.4 - CONSULT TO GYNECOLOGY 7. Screening for diabetes mellitus - ICD9: V77.1, ICD10: Z13.1 - HGB A1C RTO in 6 months, sooner if needed. Prescription instructions reviewed with patient as applicable. Potential red flag symptoms discussed with the patient. Reviewed appropriate action plan to take if red flag symptoms occur. Patient agreeable to treatment plan. Florence Aguirre APRN.TG [id number] [place] [address] documented in this encounter [facility] 12-06-2021 Miscellaneous Notes rec'd a fax from [facility]. They are wanted and office note. There is no updated office notes. Last seen in pcp'd office Was 05/14/21 with [facility] for right upper quadrant pain or send note or [facility] from 03/28/21. But neither mention foot issues. Sent the 03/28/21 office note. Message left to pt with info. I cannot pre-date a letter of referral. Note that we do consult orders in our system rather than letters these days. Cannot put a past date in the consult order. See if letter I printed and forwarded to Donald Ross is adequate Pt called in and reports she went to see Dr Bennett for plantar fascitis and has shots in her foot and orthotics made. She is asking if the provider would write a letter of referral to her insurance company that she needed to see Dr Bennett dated 10/22/21, so they will pay her bills. Please fax letter to her insurance and Dr Bennett's office. Please call Pt once this is done. documented in this encounter [facility] documented as of this encounter (statuses as of 12/06/2021) [facility]2019 History of Past illness Narrative* Problem Noted Date Resolved Date Obesity 10/09/2018 Bulging of cervical intervertebral disc without myelopathy 09/03/2016 documented as of this encounter (statuses as of 02/22/2022) [facility] History of Past illness Narrative* Problem Noted Date Resolved Date Obesity 10/09/2018 Bulging of cervical intervertebral disc without myelopathy 09/03/2016 documented as of this encounter (statuses as of 04/10/2022) [facility] History of Past illness Narrative* Problem Noted Date Resolved Date Obesity 10/09/2018 Bulging of cervical intervertebral disc without myelopathy 09/03/2016 documented as of this encounter (statuses as of 05/23/2022) [facility] History of Past illness Narrative* Problem Noted Date Resolved Date Obesity 10/09/2018 Bulging of cervical intervertebral disc without myelopathy 09/03/2016 documented as of this encounter (statuses as of 06/05/2022) [facility] History of Past illness Narrative* Problem Noted Date Resolved Date Obesity 10/09/2018 Bulging of cervical intervertebral disc without myelopathy 09/03/2016 documented as of this encounter (statuses as of 06/07/2022) [facility] History of Past illness Narrative* Problem Noted Date Resolved Date Obesity 10/09/2018 Bulging of cervical intervertebral disc without myelopathy 09/03/2016 documented as of this encounter (statuses as of 06/11/2022) [facility] History of Past illness Narrative* Problem Noted Date Resolved Date Routine medical exam 03/19/2012 07/31/2022 Overview: TC 164, RG 61, HDL 54, LDL 98 on 02/2012 [facility] GLu 102 TC 170, TG 105, HDL 54, LDL 95 on 02/13/13 [facility] Screening-pulmonary TB 07/27/2011 3 Overview: 06/2011 negative, [facility] lab Obesity 10/09/2018 Bulging of cervical intervertebral disc without myelopathy 09/03/2016 documented as of this encounter (statuses as of 07/31/2022) [facility] History of Past illness Narrative* Problem Noted Date Resolved Date Routine medical exam 03/19/2012 07/31/2022 Overview: TC 164, RG 61, HDL 54, LDL 98 on 02/2012 [facility] GLu 102 TC 170, TG 105, HDL 54, LDL 95 on 02/13/13 [facility] Screening-pulmonary TB 07/27/2011 3 Overview: 06/2011 negative, [facility] lab Obesity 10/09/2018 Bulging of cervical intervertebral disc without myelopathy 09/03/2016 documented as of this encounter (statuses as of 08/02/2022) [facility] History of Past illness Narrative* Problem Noted Date Diagnosed Date Resolved Date Routine medical exam 03/19/2012 023 Overview: TC 164, RG 61, HDL 54, LDL 98 on 02/2012 [facility] GLu 102 TC 170, TG 105, HDL 54, LDL 95 on 02/13/13 [facility] Screening-pulmonary TB 07/27/201107/31 Overview: 06/2011 negative, [facility] lab Obesity 10/09/2018 Bulging of cervical interver tebral disc without myelopathy 09/03/2016 documented as of this encounter (statuses as of 02/11/2023) [facility] History of Past illness Narrative* Problem Noted Date Diagnosed Date Resolved Date Routine medical exam 03/19/2012 023 Overview: TC 164, RG 61, HDL 54, LDL 98 on 02/2012 [facility] GLu 102 TC 170, TG 105, HDL 54, LDL 95 on 02/13/13 [facility] Screening-pulmonary TB 07/27/201107/31 Overview: 06/2011 negative, [facility] lab Obesity 10/09/2018 Bulging of cervical interver tebral disc without myelopathy 09/03/2016 documented as of this encounter (statuses as of 03/22/2023) [facility] History of Past illness Narrative* Problem Noted Date Diagnosed Date Resolved Date Routine medical exam 03/19/2012 023 Overview: TC 164, RG 61, HDL 54, LDL 98 on 02/2012 [facility] GLu 102 TC 170, TG 105, HDL 54, LDL 95 on 02/13/13 [facility] Screening-pulmonary TB 07/27/201107/31 Overview: 06/2011 negative, [facility] lab Obesity 10/09/2018 Bulging of cervical interver tebral disc without myelopathy 09/03/2016 documented as of this encounter (statuses as of 04/23/2023) [facility] History of Past illness Narrative* Problem Noted Date Diagnosed Date Resolved Date Routine medical exam 03/19/2012 023 Overview: TC 164, RG 61, HDL 54, LDL 98 on 02/2012 [facility] GLu 102 TC 170, TG 105, HDL 54, LDL 95 on 02/13/13 [facility] Screening-pulmonary TB 07/27/201107/31 Overview: 06/2011 negative, [facility] lab Obesity 10/09/2018 Bulging of cervical interver tebral disc without myelopathy 09/03/2016 documented as of this encounter (statuses as of 04/27/2023) [facility] Diagnosis Wellness examination- Primary Essential hypertension Unspecified essential hypertension Anxiety and depression Dysthymic disorder Migraine with aura and without status migrainosus, not intractable Migraine with aura, without mention of intractable migraine without mention of status migrainosus Encounter for screening mammogram for malignant neoplasm of breast Other screening mammogram Pap smear for cervical cancer screening Screening for malignant neoplasm of the cervix Screening for diabetes mellitus [facility] this [facility]* Diagnosis Plantar fasciitis- Primary Plantar fascial fibromatosis [facility]* Diagnosis Injury of right shoulder, initial encounter- Primary Encounter for immunization Need for other specified prophylactic vaccination against single bacterial disease Screening for colon cancer Special screening for malignant neoplasms, colon Screening for cervical cancer Screening for malignant neoplasm of the cervix Chronic right shoulder pain Pain in joint, shoulder region [facility] Diagnosis Encounter for gynecological examination (general) (routine) without abnormal findings- Primary Amenorrhea Absence of menstruation documented in this [facility] Diagnosis Encounter for screening mammogram for breast cancer documented in this encounter [facility]* Diagnosis Essential hypertension Unspecified essential hypertension documented in this [facility]* Diagnosis Anxiety and depression Dysthymic disorder documented in this encounter [facility] for referral (narrative)* Diagnostic Procedure Only (Routine) - Pending Review Specialty Diagnoses / Procedures Referred By Lyudmila llamas Referred To Contact [facility] Diagnoses Encounter for screening mammogram for breast cancer Procedures LEONOR SCREENING SCREENING MAMMOGRAPHY BI 2-VIEW BREAST INC Gamal Huerta MD [address] [place] [address] [facility] [address] [place] [address] Referral ID Status Reason Start Date Expiration Date Visits Requested Visits Authorized [id number] Pending Review Auto-Generat ed Referral 02/06/2023 03/07/2024 1 1 [facility] Reason for Referral Specialty Diagnoses / Procedures Referred By Contac t Referred To Contact Gynecology Diagnoses Pap smear for cervical cancer screening Procedures CONSULT TO GYNECOLOGY OFFICE/OUTPATIENT [facility] MDM 60-74 MINUTES Florence Aguirre, 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 [address] [place] [address] Referral ID Status Reason Start Date Expiration Date Visits Requested Visits Authorized [id number] Authorized PCP Requested Referral Auto-Generate d Referral 02/22/2022 02/22/2023 1 1 Specialty Diagnoses / Procedures Referred By Contac t Referred To Contact [facility] Diagnoses Encounter for screening mammogram for malignant neoplasm of breast Procedures LEONOR SCREENING W SARA SCREENING DIGITAL BREAST TOMOSYNTHESIS BI SCREENING MAMMOGRAPHY BI 2-VIEW BREAST INC CAD Florence Aguirre, 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 [address] [place] [address] [facility] [address] [place] [address] Referral ID Status Reason Start Date Expiration Date Visits Requested Visits Authorized [id number] Pending Review Auto-Generat ed Referral 02/22/2022 03/24/2023 1 1 Specialty Diagnoses / Procedures Referred By Contac t Referred To Contact [facility] Diagnoses Plantar fasciitis Procedures CONSULT TO PHYSICAL THERAPY PHYSICAL THERAPY EVALUATION HIGH COMPLEX 45 MINS Older, Merry, 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 [address] [place] [address] [facility] [address] [place] [address] Referral ID Status Reason Start Date Expiration Date Visits Requested Visits Authorized [id number] Pending Review Auto-Generat ed Referral 05/23/2023 1 1 Specialty Diagnoses / Procedures Referred By Contac t Referred To Contact [facility] Diagnoses Chronic right shoulder pain Injury of right shoulder, initial encounter Procedures CONSULT TO PHYSICAL THERAPY PHYSICAL THERAPY EVALUATION HIGH COMPLEX 45 MINS Betzy Hernandez APRN.LEAD GENERATION SPECIALIST [address] [place] [address] [facility] [address] [place] [address] Referral ID Status Reason Start Date Expiration Date Visits Requested Visits Authorized [id number] Pending Review Auto-Generat ed Referral 2 06/07/2023 1 1 Specialty Diagnoses / Procedures Referred By Contac t Referred To Contact Orthopedics Diagnoses Chronic right shoulder pain Injury of right shoulder, initial encounter Procedures CONSULT TO ORTHOPAEDICS OFFICE/OUTPATIENT [facility] MDM 60-74 MINUTES Betzy Hernandez, 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.LEAD GENERATION SPECIALIST [address] [place] [address] Referral ID Status Reason Start Date Expiration Date Visits Requested Visits Authorized [id number] Authorized PCP Requested Referral 2 06/07/2023 1 1 Specialty Diagnoses / Procedures Referred By Contac t Referred To Contact [facility] Diagnoses Chronic right shoulder pain Injury of right shoulder, initial encounter Procedures XR SHOULDER [id number] AP/TRUE AP RIGHT RADEX SHOULDER COMPLETE MINIMUM 2 VIEWS Betzy Hernandez APRN.LEAD GENERATION SPECIALIST [address] [place] [address] X[facility] Imaging Referral ID Status Reason Start Date Expiration Date Visits Requested Visits Authorized [id number] Pending Review Auto-Generat ed Referral 2 07/07/2023 1 1 Summary Purpose Family History No Family History Records Found Advance Directives No Advanced Directives Records Found Additional Source Comments Source Comments (unrecognize d section and content) In the event this informatio n is protected by the Federal Confidentiality of Alcohol and Drug Abuse Patient Records regulations: The Federal rules restrict any use of the information to criminally investigate or prosecute any alcohol or drug abuse patient.[facility] the event this information is protected by the Federal Confidentiality of Alcohol and Drug Abuse Patient Records regulations: The Federal rules restrict any use of the information to criminally investigate or prosecute any alcohol or drug abuse patient.[facility] the event this information is protected by the Federal Confidentiality of Alcohol and Drug Abuse Patient Records regulations: The Federal rules restrict any use of the information to criminally investigate or prosecute any alcohol or drug abuse patient.[facility] the event this information is protected by the Federal Confidentiality of Alcohol and Drug Abuse Patient Records regulations: The Federal rules restrict any use of the information to criminally investigate or prosecute any alcohol or drug abuse patient.[facility] the event this information is protected by the Federal Confidentiality of Alcohol and Drug Abuse Patient Records regulations: The Federal rules restrict any use of the information to criminally investigate or prosecute any alcohol or drug abuse patient.[facility] the event this information is protected by the Federal Confidentiality of Alcohol and Drug Abuse Patient Records regulations: The Federal rules restrict any use of the information to criminally investigate or prosecute any alcohol or drug abuse patient.[facility] the event this information is protected by the Federal Confidentiality of Alcohol and Drug Abuse Patient Records regulations: The Federal rules restrict any use of the information to criminally investigate or prosecute any alcohol or drug abuse patient.[facility] the event this information is protected by the Federal Confidentiality of Alcohol and Drug Abuse Patient Records regulations: The Federal rules restrict any use of the information to criminally investigate or prosecute any alcohol or drug abuse patient.[facility] the event this information is protected by the Federal Confidentiality of Alcohol and Drug Abuse Patient Records regulations: The Federal rules restrict any use of the information to criminally investigate or prosecute any alcohol or drug abuse patient.[facility] the event this information is protected by the Federal Confidentiality of Alcohol and Drug Abuse Patient Records regulations: The Federal rules restrict any use of the information to criminally investigate or prosecute any alcohol or drug abuse patient.[facility] the event this information is protected by the Federal Confidentiality of Alcohol and Drug Abuse Patient Records regulations: The Federal rules restrict any use of the information to criminally investigate or prosecute any alcohol or drug abuse patient.[facility] the event this information is protected by the Federal Confidentiality of Alcohol and Drug Abuse Patient Records regulations: The Federal rules restrict any use of the information to criminally investigate or prosecute any alcohol or drug abuse patient.[facility] the event this information is protected by the Federal Confidentiality of Alcohol and Drug Abuse Patient Records regulations: The Federal rules restrict any use of the information to criminally investigate or prosecute any alcohol or drug abuse patient.[facility] Reason for Visit (unrecogniz ed section and content) Reason Comments Physical Specialty Diagnoses / Procedures Referred By Contac t Referred To Contact Diagnoses Skin lesion Procedures CONSULT TO DERMATOLOGY Gamal Almendarez MD [address] [place] [address] Referral ID Status Reason Start Date Expiration Date Visits Requested Visits Authorized [id number] Ref Not Required PCP Requested Referral 06/08/2022 1 1 Reason Comments Patient Request Reason Comments Recheck Follow up hand eczem a Specialty Diagnoses / Procedures Referred By Contac t Referred To Contact Internal Medicine / INTERNAL MEDICINE Diagnoses follow up-hand eczema Procedures OFFICE/OUTPATIENT ESTABLISHED LOW MDM 20-29 MIN 4C EST Self 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, 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, 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 [address] [place] [address] Referral ID Status Reason Start Date Expiration Date Visits Re quested Visits Authorized [id number] Closed 05/23/2022 06/23/2022 1 1 Reason Comments Orders Reason Comments Pain (Shoulder Pain) Specialty Diagnoses / Procedures Referred By Contac t Referred To Contact Internal Medicine / INTERNAL MEDICINE Diagnoses Eczema follow up-hand eczema Procedures OFFICE/OUTPATIENT ESTABLISHED LOW MDM 20-29 MIN 4C EST Self Older, 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, 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 [address] [place] [address] Referral ID Status Reason Start Date Expiration Date Visits Re quested Visits Authorized [id number] Closed 05/23/2022 06/23/2022 1 1 Reason Comments Results Reason Comments Yearly Exam Specialty Diagnoses / Procedures Referred By Contac t Referred To Contact 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 Annual physical exam Annual Exam and pap smear Procedures OFFICE/OUTPATIENT ESTABLISHED HIGH MDM 40-54 MIN PAP SMEAR EST WHI ANNUAL PATIENT Self Aleja Garcia, 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 [address] [facility] [place] [address] Referral ID Status Reason Start Date Expiration Date Visits Re quested Visits Authorized [id number] Closed 07/26/2022 06/23/2023 1 1 Reason Onset Date Comments Refill Request 03/21/2023 Reason Onset Date Comments Refill Request 04/20/2023 Reason Comments Refill Request Care Teams (unrecognized sec tion and content) Animated Cartoons Painter Relationship Specialty Start Date End Date Gamal Almendarez MD [address] [place] [id number] PCP - General Internal Medicine 10/27/13 Animated Cartoons Painter Relationship Specialty Start Date End Date Gamal Almendarez MD [address] [place] [id number] PCP - General Internal Medicine 10/27/13 Animated Cartoons Painter Relationship Specialty Start Date End Date Gamal Almendarez MD [address] [place] [id number] PCP - General Internal Medicine 10/27/13 Animated Cartoons Painter Relationship Specialty Start Date End Date Gamal Almendarez MD [address] [place] [id number] PCP - General Internal Medicine 10/27/13 Animated Cartoons Painter Relationship Specialty Start Date End Date Gamal Almendarez MD [address] [place] [id number] PCP - General Internal Medicine 10/27/13 Animated Cartoons Painter Relationship Specialty Start Date End Date Gamal Almendarez MD [address] [place] [id number] PCP - General Internal Medicine 10/27/13 Animated Cartoons Painter Relationship Specialty Start Date End Date Gamal Almendarez MD [address] [place] [id number] PCP - General Internal Medicine 10/27/13 Animated Cartoons Painter Relationship Specialty Start Date End Date Gamal Almendarez MD [address] [place] [address] PCP - General Internal Medicine 10/27/13 Animated Cartoons Painter Relationship Specialty Start Date End Date Gamal Almendarez MD [address] [place], [place] [id number] PCP - General Internal Medicine 10/27/13 Animated Cartoons Painter Relationship Specialty Start Date End Date Gamal Almendarez MD [address] [place], [place] [id number] PCP - General Internal Medicine 10/27/13 INFORMATION SOURCE (unrecogn ized section and content) FOR RECORDS PERTAINING TO PATIENTS WHO ARE OR HAVE BEEN ENROLLED IN A CHEMICAL DEPENDENCY/SUBSTANCEABUSE PROGRAM, SOME INFORMATION MAY BE OMITTED. This clinical summary was aggregated from multiple sources. Caution should be exercised in using it in the provision of clinical care. This summary normalizes information from multiple sources, and as a consequence, information in this document may materially change the coding, format and clinical context of patient data. In addition, data may be omitted in some cases. CLINICAL DECISIONS SHOULD BE BASED ON THE PRIMARY CLINICAL RECORDS. [facility] [employer] [facility]. provides no warranty or guarantee of the accuracy or completeness of information in this document.
== END | disposition home or self-care (01) ==
LOC: OPBI 09:19
PROVIDERS: PCP Internal Medicine; Referring Provider Internal Medicine; Visit Provider Internal Medicine
DX: Z12.31 Encounter for screening mammogram for malignant neoplasm of breast (principal)
CPT/HCPCS: 77063; 77067

== ENCOUNTER → 2024-04-01 | Outpatient (CLI) | payer OTHER, SELFPAY ==
--- NOTE | 2024-04-01 13:25 | NEURO ---
NCS and/or EMG Patient Report Ordering Doctor: Miguel Blankenship DATE OF SERVICE: 04/01/24 Anaya presents with complaints of posterior right knee pain and numbness in the lower leg. Electrodiagnostic Findings: Right peroneal motor nerve demonstrates normal distal latency amplitude and conduction velocity. Right tibial motor response is within normal limits. Normal right tibial and peroneal F?waves. Absent right sural response. Normal right superficial peroneal response. H-reflex is borderline prolonged bilaterally. Needle EMG testing was performed the right lower limb. All muscles tested showed no evidence of denervation with normal motor unit action potentials. Electrodiagnostic impression: This is an abnormal study in the right lower limb 1. 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 This may account for the numbness in the lower leg but is unlikely to be accounting for her pain. 2. No electrodiagnostic evidence is noted for lumbosacral radiculopathy. Multi [facility] Codes Neurology Neurology Interp Codes: 32550-43 Musc test done w/n test comp (interp) and 16411-46 Nrv cndj tst 5-6 studies (interp)
== END | disposition home or self-care (01) ==
LOC: PSN 12:19
PROVIDERS: PCP Internal Medicine; Referring Provider Orthopaedic Surgery; Visit Provider Orthopaedic Surgery
DX: G57.91 Unspecified mononeuropathy of right lower limb (principal); M76.891 Other specified enthesopathies of right lower limb, excluding foot; M17.11 Unilateral primary osteoarthritis, right knee
CPT/HCPCS: 95886; 95909

== ENCOUNTER 2024-05-14 12:00 | Outpatient (RCR) | payer OTHER, SELFPAY ==
--- NOTE | 2024-04-22 12:05 | HP.PTEVAL ---
Patient's Visit Information Visit Information Visit Information: VINCENT MCGEE is a 48 year old F referred to Physical Therapy by Dr. Miguel Blankenship DO with a diagnosis of neuropathy of R sural nerve, OA of B knees and R knee stiffness. Date of Evaluation: 04/22/24 Physical Therapist: Magdi Copeland DPT Visit Plan Frequency: 2x /Week Duration: 4 Weeks Plan: 1) supine sural nerve glides RLE 2) R knee ROM into both extension and flexion as toleraed. 3) R knee joint mobs both PAs and APs to aide in motion 4) once symptoms have started to resolve may start light strengthening as tolerated. Subjective Subjective: Pt. is here today for her initial evaluation with diagnosis of neuropathy of R sural nerve, OA of B knees and R knee stiffness. pt. repots increased R calf pain, NT for the past 5 months. She had a previous meniscectomy ~5 years ago. She reports never having good relief after that. She has been having injections to help, which have been beneficial. Pain R posterior knee: Pain Intensity (Out of 10): 6 Pain Intensity Range: 2 and 10 Objective Objective: POSTURE: Pt. has general flexed posture. Lacks TKE bilaterally, R worse than L. Pt. has increased wt. shift to L side. PALPATION: pt. has tenderness at posterior knee and along the medial calf. NEURO: Pt. has normal sensation and normal DTR of BLEs. ROM: R knee 0-8-102deg, L knee: 0-2-124deg. Tightness in B HS. R worse than L. No marked calf tightness noted MMT: R knee: ext 20.5#, flexion 13.4# increase NW posterior knee; hip: flexion 21.#, abd 23.8#. L knee: ext 32.2#, flexion 40.2# no issues; hip: flexion 31.4#, abd 28.#. GAIT: pt. ambulates without AD. Pt. lacks TKE in B knees, R is worse than L. Increase in L posterior knee and calf pain during stance phase. STAIRS: step to pattern with 2 HR. Loades LLE only. Balance/Special Test Scores Lower Extremity Functional Score: 34 Goals Goal 1:: LTG: Pt. to be I with HEP. Goal 2:: LTG: Pt. to have increased R knee ROM to 0-0-120deg. Goal Time Frame: 4-6 Weeks Goal 3:: LTG: PT. to have symmetrical strength between BLEs. Goal Time Frame: 4-6 Weeks Goal 4:: LTG: Pt. to complete all work activities without increase in R knee/calf pain. Goal Time Frame: 4-6 Weeks Goal 5:: LTG: Pt. to sleep through the night without increase in R knee pain. Goal Time Frame: 4-6 Weeks Goal 6:: LTG: pt. to get her R LE in/out of car without issues. Goal Time Frame: 6-8 Weeks Rehabilitation Potential Physical Therapy Diagnosis: Pt. has signs and symptoms consistent with neuropathy of R sural nerve, OA of B knees and R knee stiffness. Pt. has marked nerve irritation with sural nerve glides. Pt. would benefit from PT to increase her R knee ROM, decrease her R sural nerve irritation and increase her R LE strength. Rehabilitation Potential: Good Anticipated Interventions Patient/Client Instruction: Educate patient on: Condition, Plan of Care, Risk Factors and Benefits of Fitness Program For the Purpose of:: To improve decision making, To facilitate caregiver knowledge, To improve self management, To prevent re-injury, To improve ability to perform tasks related to life management and To improve tolerance to ADL's Therapeutic Exercise to Include: Strength training, Power training, Body mechanics, Postural training, Flexibilty training, Neuromotor development, Passive ROM and Active ROM For the Purpose of:: To decrease pain, To increase ROM, To improve nutrient delivery to tissue, To increase oxygenation perfusion, To improve muscle performance and motor function, To improve ability to perform ADL's, To increase tolerance to activity/condition/position, To improve gait and locomotor functions, To improve health of tissue and To increase flexibility/ROM Text: Thank you for the opportunity to evaluate your patient. For Medicare and Medicare HMO plans, please review the plan of care and approve it. It will need to be FAXED BACK to us at [phone] for Medicare purposes. For Medicare only, by signing this I certify the plan of care. Please let me know if there are questions or concerns regarding this plan of care. Physician Signature: Date:
== END 2024-05-14 19:00 | disposition home or self-care (01) ==
LOC: PT 12:00
PROVIDERS: PCP Internal Medicine; Referring Provider Orthopaedic Surgery; Visit Provider Orthopaedic Surgery
DX: M25.661 Stiffness of right knee, not elsewhere classified (principal); M17.0 Bilateral primary osteoarthritis of knee; G57.81 Other specified mononeuropathies of right lower limb
CPT/HCPCS: 97110; 97140; 97161

== ENCOUNTER → 2024-05-26 | Outpatient (CLI) | payer OTHER, SELFPAY | END | disposition home or self-care (01) | LOC: LABSPEC 12:18 | PROVIDERS: PCP Internal Medicine; Referring Provider Physician Assistant; Visit Provider Physician Assistant | DX: N39.0 Urinary tract infection, site not specified (principal) | CPT/HCPCS: 87086; 87088; 87186 ==

== ENCOUNTER → 2024-06-02 | Outpatient (CLI) | payer OTHER, SELFPAY ==
[2024-06-02 10:10] LABS: Basophil% 0.6 % (0-1); Eosinophils% 3.7 % (0-5); Hematocrit 38.8 % (37-47); Hemoglobin 12.5 g/dL (12.0-15.0); Lymphocyte % 22.7 % (19-41); Mean Corp Hgb Conc 32.2 g/dL (32-36); Mean Corpuscular Hgb 28.9 pg (27.0-32.0); Mean Corpuscular Volume 89.6 fL (81-99); Monocyte% 5.4 % (0-10); Neutrophil % 67.4 % (47-70); Platelet Count 431 K/mm3 (150-450); RBC Distribution Width CV 13.1 % (11.6-14.6); RBC Distribution Width SD 43.6 fl (35.1-43.9); Red Blood Count 4.33 M/mm3 (4.2-5.4)
[2024-06-02 10:11] LABS: Absolute Lymphocyte Count 2.03 X10^3/uL (0.83-4.51); Basophil# 0.05 X10^3/uL; Eosinophil# 0.33 X10^3/uL; Lymphocyte # 2.03 X10^3/ul (0.83-4.51); Monocyte# 0.48 X10^3/uL; Neutrophil # 6.04 X10^3/uL (2.7-7.7)
[2024-06-02 11:14] LABS: ALB/GLOB Ratio 0.9 RATIO (0.9-2.4); AST(SGOT) 16 U/L (15-37); Alanine Aminotransfer ALT/SGPT 21 U/L (13-56); Albumin, Serum 3.4 g/dL (3.2-5.0); Alkaline Phosphatase 117 U/L (45-117); Anion Gap 7 (5-15); BUN 10 mg/dL (7-18); BUN/Creat Ratio 13.1 RATIO (10-20); Calcium,Total 9.1 mg/dL (8.5-10.1); Chloride 106 mmol/L (98-107); Creatinine, Serum 0.76 mg/dL (0.55-1.02); EST Glomerular Filtration Rate 85 mL/min (>60); Est Glom Filt Rate - Afr Amer 103 mL/min (>60); Globulin 3.8 g/dL (2.2-4.2); Glucose 116 mg/dL (74-106); Potassium 3.9 mmol/L (3.5-5.1); Protein, Total 7.2 g/dL (6.4-8.2); Sodium Level 139 mmol/L (136-145)
== END | disposition home or self-care (01) ==
PROVIDERS: PCP Internal Medicine; Referring Provider Internal Medicine; Visit Provider Internal Medicine
DX: R73.09 Other abnormal glucose (principal); I10 Essential (primary) hypertension
CPT/HCPCS: 36415; 80053; 85025

== ENCOUNTER → 2024-06-13 | Outpatient (CLI) | payer OTHER, SELFPAY ==
[2024-06-13 09:02] LABS: Erythrocyte Sedimentation Rate 20 mm/hr (0-30)
[2024-06-13 09:05] LABS: Hemoglobin A1c 5.8 % (3.8-5.6)
[2024-06-15 08:22] LABS: Vitamin B12 332 pg/mL (211-911)
== END | disposition home or self-care (01) ==
LOC: LAB 08:11
PROVIDERS: Clinical Nurse Specialist; PCP Internal Medicine; Referring Provider Psychiatry & Neurology Neurology; Visit Provider Psychiatry & Neurology Neurology
DX: R73.09 Other abnormal glucose (principal); G57.81 Other specified mononeuropathies of right lower limb; M21.371 Foot drop, right foot
CPT/HCPCS: 36415; 82607; 83036; 85652; 86140

== ENCOUNTER → 2024-06-25 | Outpatient (CLI) | payer OTHER, SELFPAY ==
--- NOTE | 2024-06-25 08:46 | BI_ITS ---
MAMMOGRAPHY - BILATERAL SCREENING 3-D TOMOSYNTHESIS REASON FOR EXAM: Female, 48 years old. Routine screening PERTINENT HISTORY: Aunt with breast cancer.. TECHNIQUE: 2-D mammograms and 3-D Tomosynthesis of the breast (s) were performed. CAD was performed. COMPARISON: 06/19/2022 FINDINGS: The breast composition is almost entirely fat. Scattered benign calcifications are seen. No dense spiculated masses or suspicious microcalcifications are identified. No architectural distortion is identified. There is no skin thickening or retraction. There has been no significant change since the prior study. BI/SCRN MAMM (CAD)W/SARA BILAT IMPRESSION: No mammographic signs of malignancy. Routine yearly mammograms recommended. ASSESSMENT CATEGORY: BIRADS Category 1: Negative. A letter regarding these results will be sent to the patient by the facility within 30 days. FOLLOW UP RECOMMENDATION: Yearly follow up mammogram recommended. (A) Approximately 10% of breast cancers are not detected by mammography. A normal mammogram should not delay biopsy of a clinically suspicious abnormality. Electronically Signed: Sagar Owen MD at 10:55 EST ,
== END | disposition home or self-care (01) ==
LOC: OPBI 08:44
PROVIDERS: PCP Internal Medicine; Referring Provider Nurse Practitioner Family; Visit Provider Nurse Practitioner Family
DX: Z12.31 Encounter for screening mammogram for malignant neoplasm of breast (principal); R92.30 Dense breasts, unspecified; Z80.3 Family history of malignant neoplasm of breast
CPT/HCPCS: 77063; 77067

== ENCOUNTER → 2025-04-14 | Outpatient (CLI) | payer OTHER, SELFPAY ==
--- NOTE | 2025-04-14 08:52 | MRI_ITS ---
PROCEDURE: SPINE LUMBAR (ROUTINE) 04/14/2025 REASON FOR EXAM: LUMBAR COMPRESSION FRACTURE, RADICULOPATHY TECHNIQUE: Procedure Code: [id number] Modality: MR Procedure: SPINE LUMBAR (ROUTINE) COMPARISON: None. FINDINGS: Vertebrae: Preserved in height and signal. Alignment: Unremarkable. Conus Medullaris: Unremarkable. L1-2: Unremarkable. L2-3: Unremarkable. L3-4: Facet joints arthropathy. No significant foraminal or canal stenosis. L4-5: Facet joints arthropathy. No significant foraminal or canal stenosis. L5-S1: Facet joint arthropathy. Small disc bulge. Mild inferior bilateral foramina stenosis. Mild canal stenosis. Mild narrowing of the right subarticular space. Sacrum: Unremarkable. MRI/Spine Lumbar (Routine) IMPRESSION: Facet joints arthropathy of L3-L4, L4-L5 and L5-S1 without significant foramina l or canal stenosis. Reading Location: [id number]
--- NOTE | 2025-04-14 10:07 | RAD_ITS ---
PROCEDURE: L/S SPINE BENDING FLEX/EXT 04/14/2025 REASON FOR EXAM: PAIN TECHNIQUE: Procedure Code: [id number] Modality: DX Procedure: L/S SPINE BENDING FLEX/EXT 2 lateral views, 1 in flexion, 1 in extension COMPARISON: MRI from 04/14/2025 FINDINGS: There is anatomic alignment of the lumbar spine. No demonstrated fracture. Mild disc space narrowing throughout the lumbar spine with sclerotic endplate changes. No instability on the flexion or extension views but range of motion is limited. Prevertebral soft tissues are unremarkable RAD/L/S Spine Bending Flex/Ext IMPRESSION: Age consistent multilevel degenerative changes, no acute findings, no instabili ty Reading Location: [id number]
== END | disposition home or self-care (01) ==
PROVIDERS: PCP Internal Medicine; Referring Provider Clinical Nurse Specialist; Visit Provider Clinical Nurse Specialist
DX: M54.41 Lumbago with sciatica, right side (principal); M54.16 Radiculopathy, lumbar region; R93.7 Abnormal findings on diagnostic imaging of other parts of musculoskeletal system
CPT/HCPCS: 72120; 72148